=== PATIENT | female | born 1980 | race American Indian/Alaskan Native ===

== ENCOUNTER 2018-03-03 20:38 | Inpatient (IN) | payer MEDICARE, MEDICAID ==
[2018-03-03 21:09] VITALS: BMI 19.8
[2018-03-03 21:46] LABS: BASO # 0.01 K/mm3 (0.0-2.0); BASO % 0.1 % (0.0-3.0); EOS # 0.3 (0.0-0.7); EOS % 4.4 % (1.5-5.0); GRAN # 4.55 (1.4-6.5); GRAN % 61.4 % (50.0-68.0); HEMOGLOBIN 11.6 g/dL (12.0-16.0); LYMPH # 2.1 (1.2-3.4); MEAN CELL VOLUME 89.4 fl (80.0-105.0); MEAN CORPUSCULAR HEMOGLOBIN 30.6 pg (25.0-35.0); MEAN CORPUSCULAR HGB CONC 34.2 g/dl (31.0-37.0); MEAN PLATELET VOLUME 9.3 fl (7.0-11.0); MONO # 0.5 (0.1-0.6); MONO % 6.1 % (1.0-6.0); RBC 3.79 10^6/uL (3.5-6.1); RED CELL DISTRIBUTION WIDTH 13.1 % (11.5-14.5); WHITE BLOOD COUNT 7.4 10^3/ul (4.5-11.0)
[2018-03-03 21:57] LABS: ACETAMINOPHEN < 10.0 ug/ml (10.0-20.0); SALICYLATE < 1 mg/dL (2.0-20.0)
[2018-03-03 21:58] LABS: ALB/GLOB RATIO 1.2 (1.1-1.8); ALBUMIN 3.2 g/dL (3.0-4.8); ALT/SGPT 28 U/L (7-56); AST/SGOT 19 U/L (14-36); BLOOD UREA NITROGEN 9 mg/dL (7-21); CALCIUM 8.1 mg/dL (8.4-10.5); GFR AFRICAN-AMERICAN > 60; GFR NON-AFRICAN AMERICAN > 60
[2018-03-03] MEDS ORDERED: Potassium Chloride 20 mEq ER Tab PO STA (22:02)
--- NOTE | 2018-03-03 22:17 | ED PDOC ---
Arrival/HPI - General Historian: Patient <Miguel Richardson A - Last Filed: 03/04/18 02:03> <Kamari Vasquez - Last Filed: 03/04/18 05:41> - General Chief Complaint: Psychiatric Evaluation Time Seen by Provider: 03/03/18 20:41 - History of Present Illness Narrative History of Present Illness (Text): 03/03/18 22:11 37yo female with past medical history of schizophrenia, bipolar present with complaint of auditory hallucinations, requesting psychiatric medication, generalized bodyache and dizziness. States she have not taken her psych medication for 4months because she was with her sister at [facility]. She admits to cocaine use. States the last time she used cocaine was this morning. She denies nausea, vomiting, chest pain, focal weakness, headache, SI/HI, any other complaint. (Miguel Richardson A) Past Medical History - Provider Review Nursing Documentation Reviewed: Yes - Infectious Disease Hx of Infectious Diseases: None - Cardiac Hx Cardiac Disorders: No - Pulmonary Hx Asthma: Yes - Neurological Hx Neurological Disorder: No - HEENT Hx HEENT Disorder: No - Renal Hx Renal Disorder: No - Endocrine/Metabolic Hx Endocrine Disorders: No - Hematological/Oncological Hx Blood Disorders: No - Integumentary Hx Dermatological Disorder: No - Musculoskeletal/Rheumatological Hx Musculoskeletal Disorders: No - Gastrointestinal Hx Gastrointestinal Disorders: No - Genitourinary/Gynecological Hx Genitourinary Disorders: No - Psychiatric Hx Psychophysiologic Disorder: No Hx Substance Use: Yes - Surgical History Other/Comment: left ankle - Anesthesia Hx Anesthesia: Yes Hx Anesthesia Reactions: No - Suicidal Assessment Feels Threatened In Home Enviroment: No <Miguel Richardson A - Last Filed: 03/04/18 02:03> Family/Social History - Physician Review Nursing Documentation Reviewed: Yes Family/Social History: Unknown Family HX Smoking Status: Heavy Smoker > 10 Cigarettes Daily Hx Alcohol Use: No Hx Substance Use: Yes Substance used: cocaine and weed as per patient <Miguel Richardson A - Last Filed: 03/04/18 02:03> Allergies/Home Meds <Miguel Richardson A - Last Filed: 03/04/18 02:03> <Kamari Vasquez - Last Filed: 03/04/18 05:41> Allergies/Adverse Reactions: Allergies chocolate flavor Allergy (Intermediate, Verified 03/03/18 21:10) RASH HIVES PER PATIENT onion Allergy (Intermediate, Verified 03/03/18 21:10) RASH HIVES onions Allergy (Uncoded 07/07/17 05:03) RASH Review of Systems - Physician Review All systems were reviewed & negative as marked: Yes - Review of Systems Constitutional: Normal Eyes: Normal ENT: Normal Respiratory: Normal Cardiovascular: Normal Gastrointestinal: Normal Genitourinary Female: Normal Musculoskeletal: Myalgias Skin: Normal Neurological: Dizziness. absent: Headache, Focal Weakness, Gait Changes, Speech Changes Endocrine: Normal Hemo/Lymphatic: Normal Psychiatric: Other (Hallucination) <DirhilarioHappiness A - Last Filed: 03/04/18 02:03> Physical Exam Vital Signs Reviewed: Yes Temperature: Afebrile Blood Pressure: Normal Pulse: Regular Respiratory Rate: Normal Appearance: Positive for: Well-Appearing, Non-Toxic, Comfortable Pain Distress: None Mental Status: Positive for: Alert and Oriented X 3 - Systems Exam Head: Present: Atraumatic, Normocephalic Pupils: Present: PERRL Extroacular Muscles: Present: EOMI Conjunctiva: Present: Normal Mouth: Present: Moist Mucous Membranes Neck: Present: Normal Range of Motion Respiratory/Chest: Present: Clear to Auscultation, Good Air Exchange. No: Respiratory Distress, Accessory Muscle Use Cardiovascular: Present: Regular Rate and Rhythm, Normal S1, S2. No: Murmurs Abdomen: No: Tenderness, Distention, Peritoneal Signs Back: Present: Normal Inspection Upper Extremity: Present: Normal Inspection. No: Cyanosis, Edema Lower Extremity: Present: Normal Inspection. No: Edema Neurological: Present: GCS=15, CN II-XII Intact, Speech Normal Skin: Present: Warm, Dry, Normal Color. No: Rashes Psychiatric: Present: Alert, Oriented x 3, Normal Insight, Normal Concentration <DiruHappiness A - Last Filed: 03/04/18 02:03> Vital Signs Temp Pulse Resp BP Pulse Ox 03/04/18 05:38 88 16 113/72 99 03/03/18 21:18 98.5 F 76 18 135/89 99 Medical Decision Making <DylanHappiness A - Last Filed: 03/04/18 02:03> <Kamari Vasquez - Last Filed: 03/04/18 05:41> ED Course and Treatment: 03/04/18 02:04 Pt presented for stated history. She was calm and hemodynamically stable. Lab was ordered and reviewed. Potassium and Calcium was repleted in Emergency department. Patient was medically cleared for psychiatric evaluation. PES screener was called. Case was endorsed to Dr. Vasquez to f/u with PES and dispo pt. (Miguel Richardson) 03/04/18 04:30 Pt seen and evaluated by PES screener Jose, who discussed case with psychiatrist computational scientist. Pt will remain in ER for [id number] evaluation by psychiatrist in the morning. 03/04/18 07:[address] Womack, pending [id number] evaluation with psychiatrist. ( Kamari Vasquez) - Lab Interpretations Lab Results: 03/03/18 21:31 03/03/18 21:31 Lab Results 03/03/18 21:31: Alcohol, Quantitative < 10 03/03/18 21:31: Salicylates < 1 L, Acetaminophen < 10.0 L 03/03/18 21:31: Sodium 143, Potassium 3.0 L, Chloride 108 H, Carbon Dioxide 23, Anion Gap 14, BUN 9, Creatinine 0.7, Est GFR ( Amer) > 60, Est GFR (Non- Af Amer) > 60, Random Glucose 121 H, Calcium 8.1 L, Magnesium 1.8, Total Bilirubin 0.3, AST 19, ALT 28, Alkaline Phosphatase 105, Total Protein 5.8, Albumin 3.2, Globulin 2.6, Albumin/Globulin Ratio 1.2 03/03/18 21:31: WBC 7.4, RBC 3.79, Hgb 11.6 L, Hct 33.9 L, MCV 89.4, MCH 30.6, MCHC 34.2, RDW 13.1, Plt Count 211, MPV 9.3, Gran % 61.4, Lymph % (Auto) 28.0, [place] % (Auto) 6.1 H, Eos % (Auto) 4.4, Baso % (Auto) 0.1, Gran # 4.55, Lymph # ( Auto) 2.1, [place] # (Auto) 0.5, Eos # (Auto) 0.3, Baso # (Auto) 0.01 - RAD Interpretation Radiology Orders: 03/04/18 02:06 CHEST PORTABLE [RAD] Stat - Medication Orders Current Medication Orders: Discontinued Medications Calcium Carbonate (Oscal) 500 mg PO DAILY STA Stop: 03/03/18 22:03 Potassium Chloride (K-Dur 20 Meq Er Tab) 40 meq PO STAT STA Stop: 03/03/18 22:03 Last Admin: 03/03/18 22:26 Dose: 40 meq - PA / LINKER UP / Resident Statement / has reviewed & agrees with the documentation as recorded. / has examined the patient and agrees with the treatment plan. <Kamari Vasquez - Last Filed: 03/04/18 05:41> Disposition/Present on Arrival - Present on Arrival History of DVT/PE: No History of Uncontrolled Diabetes: No Urinary Catheter: No History of Decub. Ulcer: No History Surgical Site Infection Following: None <Miguel Richardson - Last Filed: 03/04/18 02:03> - Present on Arrival Any Indicators Present on Arrival: No - Disposition Have Diagnosis and Disposition been Completed?: No Disposition Time: 07:00 <Kamari Vasquez - Last Filed: 03/04/18 05:41> - Disposition Diagnosis: Schizophrenia Condition: STABLE Forms: [employer] (Arabic)
[2018-03-04 08:09] LABS: URINE BILIRUBIN NEGATIVE (NEGATIVE); URINE BLOOD TRACE-INTACT (NEGATIVE); URINE GLUCOSE (UA) NEGATIVE (NEGATIVE); URINE LEUKOCYTE ESTERASE NEGATIVE Leu/uL (NEGATIVE); URINE PROTEIN NEGATIVE mg/dL (<30 mg/dL); URINE UROBILINOGEN 0.2 E.U./dL (<1 E.U./dL)
[2018-03-04 08:19] LABS: URINE APPEARANCE CLEAR (CLEAR); URINE COLOR YELLOW (YELLOW)
[2018-03-04 08:25] LABS: URINE BACTERIA FEW (NEG); URINE RBC 0 - 2 /hpf (0-2)
[2018-03-04 08:44] LABS: BARBITURATES, UR NEGATIVE (NEGATIVE); BENZODIAZEPINES, UR NEGATIVE (NEGATIVE); OPIATES, UR NEGATIVE (NEGATIVE); PHENCYCLIDINE, UR NEGATIVE (NEGATIVE)
[2018-03-04] MEDS ORDERED: Magnesium Hydroxide Susp 30 ml UD PO PRN (10:56)
[2018-03-04] MEDS ORDERED: Alum-Mag Hydrox-Simethicone Susp (30 mL) PO PRN (10:57)
--- NOTE | 2018-03-04 11:01 | RAD ---
Date of service: 03/04/2018 HISTORY: Dizziness COMPARISON: No prior. FINDINGS: LUNGS: No active pulmonary disease. PLEURA: No significant pleural effusion identified, no pneumothorax apparent. CARDIOVASCULAR: Normal. OSSEOUS STRUCTURES: No significant abnormalities. VISUALIZED UPPER ABDOMEN: Normal. OTHER FINDINGS: None. IMPRESSION: No active disease.
--- NOTE | 2018-03-04 11:42 | ED PDOC ---
Physical Exam Vital Signs Temp Pulse Resp BP Pulse Ox 03/04/18 09:00 98 F 85 119/53 L 99 03/04/18 08:43 98 F 75 19 119/72 98 03/04/18 05:38 88 16 113/72 99 03/04/18 02:07 98.6 F 77 18 120/86 100 03/03/18 23:00 80 18 120/72 99 03/03/18 21:18 98.5 F 76 18 135/89 99 Medical Decision Making ED Course and Treatment: Signed out to me at change of shift pending psychiatrist evaluation this AM. Patient seen by Dr. Lu, accepted for admission to Psych. - Lab Interpretations Lab Results: 03/03/18 21:31 03/03/18 21:31 Lab Results 03/04/18 08:00: Urine Opiates Screen Negative, Urine Methadone Screen Negative, Ur Barbiturates Screen Negative, Ur Phencyclidine Scrn Negative, Ur Amphetamines Screen Negative, U Benzodiazepines Scrn Negative, U Oth Cocaine Metabols Positive H, U Cannabinoids Screen Negative 03/04/18 08:00: Urine Color Yellow, Urine Appearance Clear, Urine pH 6.0, Ur Specific [place] 1.020, Urine Protein Negative, Urine Glucose (UA) Negative, Urine Ketones Negative, Urine Blood Trace-intact H, Urine Nitrate Negative, Urine Bilirubin Negative, Urine Urobilinogen 0.2, Ur Leukocyte Esterase Negative , Urine RBC 0 - 2, Urine WBC 1 - 3, Ur Epithelial Cells 1 - 3, Urine Bacteria Few 03/03/18 21:31: Alcohol, Quantitative < 10 03/03/18 21:31: Salicylates < 1 L, Acetaminophen < 10.0 L 03/03/18 21:31: Sodium 143, Potassium 3.0 L, Chloride 108 H, Carbon Dioxide 23, Anion Gap 14, BUN 9, Creatinine 0.7, Est GFR ( Amer) > 60, Est GFR (Non- Af Amer) > 60, Random Glucose 121 H, Calcium 8.1 L, Magnesium 1.8, Total Bilirubin 0.3, AST 19, ALT 28, Alkaline Phosphatase 105, Total Protein 5.8, Albumin 3.2, Globulin 2.6, Albumin/Globulin Ratio 1.2 03/03/18 21:31: WBC 7.4, RBC 3.79, Hgb 11.6 L, Hct 33.9 L, MCV 89.4, MCH 30.6, MCHC 34.2, RDW 13.1, Plt Count 211, MPV 9.3, Gran % 61.4, Lymph % (Auto) 28.0, [place] % (Auto) 6.1 H, Eos % (Auto) 4.4, Baso % (Auto) 0.1, Gran # 4.55, Lymph # ( Auto) 2.1, Lamb # (Auto) 0.5, Eos # (Auto) 0.3, Baso # (Auto) 0.01 - RAD Interpretation Radiology Orders: 03/04/18 02:06 CHEST PORTABLE [RAD] Stat - Medication Orders Current Medication Orders: Acetaminophen (Tylenol 325mg Tab) 650 mg PO Q4H PRN PRN Reason: Pain, moderate (4-7) Last Admin: 03/04/18 11:23 Dose: 650 mg MAR Pain/Vitals Document 03/04/18 11:23 LEV (Rec: 03/04/18 11:24 LEV [id number]) Pain Reassessment Is This A Pain ReAssessment? No Sleep Is patient sleeping during reassessment? No Presence of Pain Presence of Pain Yes Pain Scale Used Pain Scale Used Numeric Location Pain Location Body Site Generalized Intensity 7 Al Hydrox/Mg Hydrox/Simethicone (Maalox Plus 30 Ml) 30 ml PO DAILY PRN PRN Reason: Indigestion / Heartburn Escitalopram Oxalate (Lexapro) 5 mg PO DAILY ANTOINE Lorazepam (Ativan) 1 mg PO AMHS ANTOINE PRN Reason: Protocol Last Admin: 03/04/18 11:23 Dose: 1 mg Behavioural Document 03/04/18 11:23 LEV (Rec: 03/04/18 11:23 LEV [id number]) Maintenance Maintenance Dose No Nonmedicinal Nonmedicinal Interventions See nurse's notes Behavior Behavior for Medication: Continuous pacing/restlessness Magnesium Hydroxide (Milk Of Magnesia) 30 ml PO DAILY PRN PRN Reason: Constipation Risperidone (Risperdal Tab) 1 mg PO AMHS ANTOINE PRN Reason: Protocol Zaleplon (Sonata) 5 mg PO HS PRN PRN Reason: Insomnia Discontinued Medications Calcium Carbonate (Oscal) 500 mg PO DAILY STA Stop: 03/03/18 22:03 Last Admin: 03/03/18 22:35 Dose: Not Given Non-Admin Reason: Patient Refused Potassium Chloride (K-Dur 20 Meq Er Tab) 40 meq PO STAT STA Stop: 03/03/18 22:03 Last Admin: 03/03/18 22:26 Dose: 40 meq Disposition/Present on Arrival - Present on Arrival Any Indicators Present on Arrival: No History of DVT/PE: No History of Uncontrolled Diabetes: No Urinary Catheter: No History of Decub. Ulcer: No History Surgical Site Infection Following: None - Disposition Have Diagnosis and Disposition been Completed?: Yes Diagnosis: Schizophrenia Disposition: HOSPITALIZED Disposition Time: 08:40 Patient Plan: Admission Patient Problems: Current Active Problems Problem Status Onset Schizophrenia Acute Condition: STABLE
--- NOTE | 2018-03-04 12:50 | CARD ---
APPROVED REPORT Date of service: 03/04/2018 EKG Measurement Heart [id number] <Conclusion> Sinus rhythm with 1st degree AV block Otherwise normal ECG
--- NOTE | 2018-03-04 13:24 | PCM.BM ---
<Miranda Crabtree - Last Filed: 03/04/18 13:27> Treatment Plan Problems - Problems identified on initial assessmt Medication NonAdherence Date Initiated: 03/04/18 Time Initiated: 13:21 Assessment reference: NA Status: Active Priority: 1 Command/Auditory Hallucinations Date Initiated: 03/04/18 Time Initiated: 13:22 Assessment reference: NA Status: Active Priority: 2 Altered Thought Process Date Initiated: 03/04/18 Time Initiated: 13:23 Assessment reference: NA Status: Active Priority: 3 Ineffective Coping Date Initiated: 03/04/18 Time Initiated: 13:23 Assessment reference: NA Status: Active Priority: 4 SelfCare Deficit Date Initiated: 03/04/18 Time Initiated: 13:23 Assessment reference: NA Status: Active Priority: 5 Treatment assets and liabiliti Patient Assests: cooperative, negotiates basic needs Patient Liabilities: financial problems, poor support system, substance abuse - Milieu Protocol Maintain good personal hygiene: daily Encourage regular showers, every shift Remind patient to perform daily oral care, every shift Assist patient to perform ADL's Maintain personal safety: every shift Educate patient to report safety concerns to staff, every shift Monitor environment for contraband/sharps Medication safety: Monitor for expected outcome, potential side effects: every shift, Assess barriers to learning: every shift, Assess readiness for medication education: every shift Family Contact Family involvement: No known Family/SO Family contact: Other (Patient reports no family contact) - Goals for Treatment Patient goals for treatment: "Not hear voices" Discharge/Continuing Care - Education Needs Education Needs: Patient Medication, Patient Diagnosis/Disease Process, Patient Coping Skills, Patient Activities of Daily Living, Patient Personal Hygiene/ Grooming, Patient Aftercare Safety Plan - Discharge Discharge Criteria: Tolerates medication w/o severe side effects, Free of Homicidal thoughts, Ability to care for self <Ivy Millan - Last Filed: 03/05/18 13:37> - Diagnosis (1) Cocaine abuse Status: Acute Interventions: 03/05/18 13:37 Monitoring withdrawal symptoms Medical detoxification Pharmacotherapy for alcohol/benzos/opioid dependence Maintaining sobriety Relapse prevention Possible rehabilitation Motivational interviewing 12-step programs: AA meetings (2) Schizophrenia Status: Acute Interventions: 03/05/18 13:38 Psychoeducation/psychotherapy Psychopharmacology/adjustment of medications as needed/ monitoring possible side effects Evaluate pt on daily basis Compliance with medications and follow up appointments Long acting medication if pt is noncompliant with pill form Suicide and homicide risk assessment and prevention, coping strategies, safety plan Relapse prevention Reduction of symptoms Improve functional status Possible assertive community treatment Cognitive behavioral therapy Family involvement Possible social skill training as outpatient <Duyen Barnett - Last Filed: 03/05/18 14:18> Family Contact Family involvement: Famliy/SO not involved Family contact: Patient agrees to contact <Jessica Loredo - Last Filed: 03/07/18 12:07>
[2018-03-04 16:20] VITALS: O2SAT 100
[2018-03-05 07:54] LABS: GLUCOSE,FASTING 83 mg/dL (65-110); HDL CHOLESTEROL 44 mg/dL (29-60)
[2018-03-05 08:06] LABS: LDL CHOLESTEROL 60 mg/dL (0-129)
[2018-03-05 08:09] LABS: FREE T4 0.6 ng/dL (0.78-2.19)
--- NOTE | 2018-03-05 13:37 | PCM.PSYCH ---
Initial Psychiatric Evaluation - Initial Psychiatric Evaluation Type of Admission: Voluntary Legal Status: Capacity (ppatient has capacity to sign consent for treatment) Chief Complaint (in patient's own words): "I don't feel good, I am tired" Patient's Reaction to Hospitalization: pt was admitted for psychosis, disorganized thoughts and behavior. History of Present Illness and Precipitating Events: shortly pt is 37yo with reported h/o schizophrenia, h/o cocaine abuse, pt was brought in to the [facility] for evaluation of psychosis, and generalized body ache and dizziness, pt reported being noncompliant with meds and f/u appointments,pt required further evaluation and stabilization and observation. pt was seen today at the morning time at the treatment team meeting room, pt presented with poor personal hygiene, strong body odor, fair ADLs pt had poor dental hygiene, pt seems to be poor and unreliable historian, was keep repeating that she is tired and she is feeling dizzy. pt reported that she was released from [facility] with no meds, pt said that she staid on the psych unit for observation and no prescriptions were given to her. as pe ED report pt said she was not taking her psych meds for 4 months because of her relocation to her sister's house. pt presented to be disorganized, said that she was feeling "dizzy" before coming to the hospital, had difficulties to describe what does she mean by dizziness. Pt was keep trying to lay on the desk while talking, needs to be redirected. In ED pt had impression that something was hurt inside of her and she felt that her umbilical cord was cut off. pt was also mumbling something incoherently about "I feel like I'm walking in ...I feel like i'm going to soon." "someone is doing latter-day on me, I don't know who is trying to do latter-day" in ED pt said she was hearing voices telling her to kill someone, but denied any intent or plan to kill self or others. pt reported that she smokes cocaine "every other day". pt smokes about a pack a day of cigarettes, counseling provided, nicotine patch offered. past psych h/o: unknown, pt reported h/o schizophrenia, pt denied h/o suicidal attempts but ?. pt said she was on risperdal before and wants to continue on it. Family h/o: unknown Social h/o: unknown. Medical h/o: Asthma, pt said that she broke her ankle last winter, was observed limping while walking, pt seems to be malnourished. 03/03/18 21:31 03/03/18 21:31 Lab Results 03/05/18 07:15: Free T4 0.60 L, TSH 3rd Generation 1.78 03/05/18 07:15: Fasting Glucose 83, Triglycerides 47, Cholesterol 110 L, LDL Cholesterol Direct 60, HDL Cholesterol 44 03/04/18 08:00: Urine Opiates Screen Negative, Urine Methadone Screen Negative, Ur Barbiturates Screen Negative, Ur Phencyclidine Scrn Negative, Ur Amphetamines Screen Negative, U Benzodiazepines Scrn Negative, U Oth Cocaine Metabols Positive H, U Cannabinoids Screen Negative 03/04/18 08:00: Urine Color Yellow, Urine Appearance Clear, Urine pH 6.0, Ur Specific [place] 1.020, Urine Protein Negative, Urine Glucose (UA) Negative, Urine Ketones Negative, Urine Blood Trace-intact H, Urine Nitrate Negative, Urine Bilirubin Negative, Urine Urobilinogen 0.2, Ur Leukocyte Esterase Negative , Urine RBC 0 - 2, Urine WBC 1 - 3, Ur Epithelial Cells 1 - 3, Urine Bacteria Few 03/03/18 21:31: Alcohol, Quantitative < 10 03/03/18 21:31: Salicylates < 1 L, Acetaminophen < 10.0 L 03/03/18 21:31: Sodium 143, Potassium 3.0 L, Chloride 108 H, Carbon Dioxide 23, Anion Gap 14, BUN 9, Creatinine 0.7, Est GFR ( Amer) > 60, Est GFR (Non- Af Amer) > 60, Random Glucose 121 H, Calcium 8.1 L, Magnesium 1.8, Total Bilirubin 0.3, AST 19, ALT 28, Alkaline Phosphatase 105, Total Protein 5.8, Albumin 3.2, Globulin 2.6, Albumin/Globulin Ratio 1.2 03/03/18 21:31: WBC 7.4, RBC 3.79, Hgb 11.6 L, Hct 33.9 L, MCV 89.4, MCH 30.6, MCHC 34.2, RDW 13.1, Plt Count 211, MPV 9.3, Gran % 61.4, Lymph % (Auto) 28.0, [place] % (Auto) 6.1 H, Eos % (Auto) 4.4, Baso % (Auto) 0.1, Gran # 4.55, Lymph # ( Auto) 2.1, [place] # (Auto) 0.5, Eos # (Auto) 0.3, Baso # (Auto) 0.01 Vital Signs Temp Pulse Resp BP Pulse Ox 03/05/18 06:50 98.8 F 73 16 97/64 L 03/04/18 18:12 82 119/63 03/04/18 16:18 72 92/55 L 03/04/18 13:29 20 03/04/18 10:15 80 20 110/65 100 03/04/18 09:00 98 F 85 119/53 L 99 03/04/18 08:43 98 F 75 19 119/72 98 03/04/18 05:38 88 16 113/72 99 03/04/18 02:07 98.6 F 77 18 120/86 100 03/03/18 23:00 80 18 120/72 99 03/03/18 21:18 98.5 F 76 18 135/89 99 right after the treatment team meeting pt submitted 48hr notice, requesting d/c "because I need to be somewhere by Monday" Current Medications: Active Medications Generic Name Dose Route Start Last Admin Trade Name Freq PRN Reason Stop Dose Admin Acetaminophen 650 mg 03/04/18 10:56 03/04/18 21:59 Tylenol 325mg Tab PO 650 mg Q4H PRN Administration Pain, moderate (4-7) Al Hydrox/Mg Hydrox/Simethicone 30 ml 03/04/18 10:57 Maalox Plus 30 Ml PO DAILY PRN Indigestion / Heartburn Escitalopram Oxalate 5 mg 03/05/18 08:00 03/05/18 08:18 Lexapro PO 5 mg DAILY ANTOINE Administration Lorazepam 1 mg 03/04/18 10:55 03/05/18 09:28 Ativan PO 1 mg AMHS ANTOINE Administration Protocol Magnesium Hydroxide 30 ml 03/04/18 10:56 Milk Of Magnesia PO DAILY PRN Constipation Nicotine 1 patch 03/05/18 10:30 03/05/18 11:37 Nicoderm Cq TD 1 patch DAILY ANTOINE Administration Risperidone 1 mg 03/04/18 22:00 03/05/18 09:29 Risperdal Tab PO 1 mg AMHS ANTOINE Administration Protocol Zaleplon 5 mg 03/04/18 10:55 Sonata PO HS PRN Insomnia Past Psychiatric History - Past Psychiatric History Previous Treatment History: Inpatient Prior Professional Help: see HPI Prior Psychiatric Treatment: see HPI At what hospital: see HPI Duration: see HPI Nature of Treatment: see HPI Explanation of prior treatment: see HPI History of Abuse: denied History of ETOH/Drug Use: see HPI History of Family Illness: see HPI Pertinent Medical Hx (Current Medical&Sleep Prob, Allergies): Allergies Allergy/AdvReac Type Severity Reaction Status Date / Time chocolate flavor Allergy Intermediate RASH Verified 03/05/18 03:15 onion Allergy Intermediate RASH Verified 03/05/18 03:15 onions Allergy RASH Uncoded 03/05/18 03:15 RisperDAL Consta 75 in IJ ONCE 03/05/18 Review of Systems - Review of Systems Systems not reviewed;Unavailable: Acuity of Condition - EENT Eyes: As Per HPI Ears: As Per HPI Nose/Mouth/Throat: As Per HPI - Breasts Breasts: As Per HPI - Cardiovascular Cardiovascular: As Per HPI - Respiratory Respiratory: As Per HPI - Gastrointestinal Gastrointestinal: As Per HPI - Genitourinary Genitourinary: As Per HPI - Reproductive: Female Reproductive:Female: As Per HPI - Menstruation Menstruation: As Per HPI - Musculoskeletal Musculoskeletal: As Par HPI - Integumentary Integumentary: As Per HPI - Neurological Neurological: As Per HPI - Psychiatric Psychiatric: As Per HPI - Endocrine Endocrine: As Per HPI - Hematologic/Lymphatic Hematologic: As Per HPI Mental Status Examination - Personal Presentation Personal Presentation: Looks stated age - Affect Affect: Flat - Motor Activity Motor Activity: Psychomotor Retardation - Reliability in Providing Information Reliability in Providing Information: Poor, due to alteration in thoughts, Poor , due to altered mood, Poor, due to cognitve impairment - Speech Speech: Disorganized - Mood Mood: Depressed - Formal Thought Process Formal Thought Process: Hallucinations, Delusions, Circumstantial - Hallucinations/Delusions Hallucinations: Auditory - Obsessions/Compulsions Obsessions: None Compulsions: None - Cognitive Functions Orientation: Person, Place Sensorium: Alert, Drowsy Attention/Concentration: Easily distracted Estimate of Intelligence: Below average Judgement: Intact, as evidence by: Insight regarding need for hospitalization - Risk Risk: Diminished functioning - Strength & Assets Inventory Strength & Assets Inventory: Cooperative - Limitations Limitations: Other (noncompliance, substance abuse) DSM 5 DX - DSM 5 DSM 5 Diagnosis: as per h/o schizophrenia cocaine abuse r/o substance induced psychosis - Recommended/Plan of Treatment Treatment Recommendations and Plan of Treatment: Milieu/structure/supportive therapy Medical consult for asthma and limping, h/o left ankle injury SW consultation for discharge plan and social issues Med management risperdal, lexapro, sonata and PRN meds Family involvement Follow up on labs Will monitor closely Pt was educated about risk/benefits and alternatives of medications, coping strategies (safety plan, suicide prevention), relapse prevention, importance of follow up with psychiatrist and therapist, stay away from drugs/alcohol/smoking will consider to call for [facility] screening, pt submitted 48hr notice 03/05/18 nutritional consult. Projected ELOS: 7days Prognosis: fair Discharge Plan and Discharge Criteria: Pt will be not depressed or manic, will be more hopeful, will be not psychotic or anxious, will be not having thoughts of harming self or others, will be tolerating medications well, will not have major side effects, will be able to function, will not pose threat to self or others. - Smoking Cessation Smoking Cessation Initiated: Yes
[2018-03-06] MEDS ORDERED: Potassium Chloride 20 mEq ER Tab PO ONE (09:38)
--- NOTE | 2018-03-06 16:04 | PCM.PYCHPN ---
Psychiatric Progress Note - Psychiatric Progress Note Patient seen today, length of contact: 30min Patient Chief Complaint: "I am not depressed, please discontinue Lexapro" Problems Identified/Issues Discussed: Suicide/ homicide prevention, past psychiatric h/o, current psychiatric symptoms , medical problems, risk/benefits and alternatives of medications, medications compliance, coping strategies, substance abuse h/o, relapse prevention, importance of follow up with psychiatrist and therapist, discharge plan. Medical Problems: see HPI Diagnostic Results: 03/03/18 21:31 03/03/18 21:31 Lab Results 03/05/18 07:15: RPR Nonreactive 03/05/18 07:15: Free T4 0.60 L, TSH 3rd Generation 1.78 03/05/18 07:15: Fasting Glucose 83, Triglycerides 47, Cholesterol 110 L, LDL Cholesterol Direct 60, HDL Cholesterol 44 03/04/18 08:00: Urine Opiates Screen Negative, Urine Methadone Screen Negative, Ur Barbiturates Screen Negative, Ur Phencyclidine Scrn Negative, Ur Amphetamines Screen Negative, U Benzodiazepines Scrn Negative, U Oth Cocaine Metabols Positive H, U Cannabinoids Screen Negative 03/04/18 08:00: Urine Color Yellow, Urine Appearance Clear, Urine pH 6.0, Ur Specific [place] 1.020, Urine Protein Negative, Urine Glucose (UA) Negative, Urine Ketones Negative, Urine Blood Trace-intact H, Urine Nitrate Negative, Urine Bilirubin Negative, Urine Urobilinogen 0.2, Ur Leukocyte Esterase Negative , Urine RBC 0 - 2, Urine WBC 1 - 3, Ur Epithelial Cells 1 - 3, Urine Bacteria Few 03/03/18 21:31: Alcohol, Quantitative < 10 03/03/18 21:31: Salicylates < 1 L, Acetaminophen < 10.0 L 03/03/18 21:31: Sodium 143, Potassium 3.0 L, Chloride 108 H, Carbon Dioxide 23, Anion Gap 14, BUN 9, Creatinine 0.7, Est GFR ( Amer) > 60, Est GFR (Non- Af Amer) > 60, Random Glucose 121 H, Calcium 8.1 L, Magnesium 1.8, Total Bilirubin 0.3, AST 19, ALT 28, Alkaline Phosphatase 105, Total Protein 5.8, Albumin 3.2, Globulin 2.6, Albumin/Globulin Ratio 1.2 03/03/18 21:31: WBC 7.4, RBC 3.79, Hgb 11.6 L, Hct 33.9 L, MCV 89.4, MCH 30.6, MCHC 34.2, RDW 13.1, Plt Count 211, MPV 9.3, Gran % 61.4, Lymph % (Auto) 28.0, [place] % (Auto) 6.1 H, Eos % (Auto) 4.4, Baso % (Auto) 0.1, Gran # 4.55, Lymph # ( Auto) 2.1, [place] # (Auto) 0.5, Eos # (Auto) 0.3, Baso # (Auto) 0.01 Vital Signs Temp Pulse Resp BP Pulse Ox 03/06/18 06:47 97.3 F L 73 17 101/64 03/05/18 16:00 83 96/60 L 03/05/18 06:50 98.8 F 73 16 97/64 L 03/04/18 18:12 82 119/63 03/04/18 16:18 72 92/55 L 03/04/18 13:29 20 03/04/18 10:15 80 20 110/65 100 03/04/18 09:00 98 F 85 119/53 L 99 03/04/18 08:43 98 F 75 19 119/72 98 03/04/18 05:38 88 16 113/72 99 03/04/18 02:07 98.6 F 77 18 120/86 100 03/03/18 23:00 80 18 120/72 99 03/03/18 21:18 98.5 F 76 18 135/89 99 DSM 5 Symptoms Update: shortly pt is 37yo with reported h/o schizophrenia, h/o cocaine abuse, pt was brought in to the [facility] for evaluation of psychosis, and generalized body ache and dizziness, pt reported being noncompliant with meds and f/u appointments,pt required further evaluation and stabilization and observation. pt was seen today at the morning time at the treatment team meeting room, pt presented with poor personal hygiene, but took a shower. pt presented bizarre, but not agitated pt said that she was f/u by PACT team and she was on Injectable form of risperdal PACT team was contacted, meeting arranged for tomorrow. pt tolerated meds well, refused to take lexapro "I am not depressed" Impression: DSM 5 Diagnosis: as per h/o schizophrenia cocaine abuse r/o substance induced psychosis Medication Change: Yes (lexapro d/c) Medical Record Reviewed: Yes Consults ordered or reviewed: medical consult was called Mental Status Examination - Cognitive Function Orientation: Person, Place Memory: Intact Attention: Poor Concentration: Poor Association: Loose Fund of Knowledge: Poor - Mood Mood: Depressed - Affect Affect: Flat - Formal Thought Process Formal Thought Process: Hallucinations, Delusions, Circumstantial - Suicidal Ideation Suicidal Ideation: No - Homicidal Ideation Homicidal Ideation: No Goal/Treatment Plan - Goal/Treatment Plan Need for Continued Stay: Remain at risks for inpatient hospitalization, Severe depression anxiety, Discharge may exacerbated symptoms, Severe functional impairment Progress Toward Problem(s) and Goals/Treatment Plan: Milieu/structure/supportive therapy Medical consult for asthma and limping, h/o left ankle injury SW consultation for discharge plan and social issues Med management risperdal, lexapro d/c sonata and PRN meds Family involvement Follow up on labs Will monitor closely Pt was educated about risk/benefits and alternatives of medications, coping strategies (safety plan, suicide prevention), relapse prevention, importance of follow up with psychiatrist and therapist, stay away from drugs/alcohol/smoking will consider to call for [facility] screening, pt submitted 48hr notice 03/05/18 nutritional consult. d/w with [facility] PACT team they are coming tomorrow for meeting
--- NOTE | 2018-03-06 21:02 | CON ---
Copied To: Freeman Nash DO Attending MD: Freeman Nash DO DATE: 03/06/2018 HISTORY OF PRESENT ILLNESS: I saw her in the psychiatric floor. She is a nice young 37-year-old -[place] female who presents with auditory hallucinations, generalized body ache, and dizziness. She also is not taking her psych medications for 4 months, who is living with sister in [facility]. She also admits using cocaine. She used cocaine in the morning of coming to the hospital. PAST MEDICAL HISTORY: Schizophrenia, bipolar, asthma, without any breathing issues even while she is doing cocaine at this time. She has substance abuse, she has left ankle surgery in the past. SOCIAL HISTORY: She still smokes cigarettes; still does drugs, cocaine; occasional alcohol. ALLERGIES: SHE HAS ALLERGIES TO CHOCOLATE AND ONIONS. REVIEW OF SYSTEMS: No acute vision or hearing changes. No sore throat. No shortness of breath or cough. No wheezing. No chest pain or palpitations. No nausea, vomiting, constipation, or diarrhea. No problems urinating. She does have myalgias. Skin is intact as far as she knows. She was dizzy. No headache or focal weakness. She was having hallucinations. PHYSICAL EXAMINATION: VITAL SIGNS: She has a 98.5 temperature, 76 pulse, 18 respiratory rate, 135/89 blood pressure, and 99% O2 sat on room air. GENERAL: Alert and oriented x3. Well-appearing, nontoxic, comfortable in bed. She slept fairly well last night. HEENT: Head is atraumatic and normocephalic. Extraocular muscles are intact. Pupils are equal and reactive to light and accommodation. Throat is moist. NECK: Supple. HEART: Regular rate. Normal S1, S2. LUNGS: Clear to auscultation bilaterally. Poor inspiration, smoking, but no wheezes or rhonchi. No rales. ABDOMEN: Soft, nontender. Positive bowel sounds. EXTREMITIES: No edema. She can move all 4 extremities well. NEUROLOGICAL: GCS is 15. Cranial nerves II through XII grossly intact. Speech is normal. She can stick out her tongue midline. She can close her eyes tight. She can raise her arms overhead. She can follow my finger in H pattern. Alert and oriented x3. SKIN: Warm and dry. No apparent rashes or ulcers. LYMPHS: Thyroid midline. No palpable appreciable lymphadenopathy. LABORATORY DATA: She has a 7.4 white count, 11.6 hemoglobin, 33.9 hematocrit, with 211 platelets. Alcohol level is less than 10. She has a 143 sodium; potassium is low at 3, will have to replace potassium and needs to check it that was not done yet; chloride 108; carbon dioxide is 23; anion gap is 14. BUN 9, creatinine 0.7. GFR is greater than 60. Sugar is 121. We will check the hemoglobin A1c also. Total protein 5.8. She has sinus rhythm with first degree AV block on EKG. Chest x-ray shows no active disease. TSH is 1.78, normal. Cholesterol is 110, triglycerides 47. Urine is clean. Positive cocaine on toxicology. Opioids nonreactive. We will replace the potassium, check her labs tomorrow. She is on NicoDerm patch, Ativan, Lexapro, MiraLax, [id number], Risperdal, Sonata, and Tylenol. The patient has schizophrenia, smoker, auditory hallucinations, cocaine abuse, asthma history, and low potassium. Freeman Nash DO MTDD
[2018-03-07 07:05] VITALS: RESP 18; TEMP 98
[2018-03-07 07:53] LABS: MEAN CELL VOLUME 89.6 fl (80.0-105.0); MEAN CORPUSCULAR HGB CONC 34.6 g/dl (31.0-37.0); MEAN PLATELET VOLUME 9.4 fl (7.0-11.0); RBC 4.9 10^6/uL (3.5-6.1); WHITE BLOOD COUNT 5.4 10^3/ul (4.5-11.0)
[2018-03-07 07:56] LABS: HEMOGLOBIN 15.2 g/dL (12.0-16.0)
[2018-03-07 08:02] LABS: ALB/GLOB RATIO 1.4 (1.1-1.8); ALBUMIN 4.2 g/dL (3.0-4.8); ALT/SGPT 15 U/L (7-56); AST/SGOT 17 U/L (14-36); BLOOD UREA NITROGEN 13 mg/dL (7-21); CALCIUM 9.4 mg/dL (8.4-10.5); GFR AFRICAN-AMERICAN > 60; GFR NON-AFRICAN AMERICAN > 60
--- NOTE | 2018-03-07 09:57 | PCM.PYCHPN ---
Psychiatric Progress Note - Psychiatric Progress Note Patient seen today, length of contact: 30min Patient Chief Complaint: "I am fine, I want to go" Problems Identified/Issues Discussed: Suicide/ homicide prevention, past psychiatric h/o, current psychiatric symptoms , medical problems, risk/benefits and alternatives of medications, medications compliance, coping strategies, substance abuse h/o, relapse prevention, importance of follow up with psychiatrist and therapist, discharge plan. Medical Problems: underweight, low blood pressure Diagnostic Results: 03/03/18 21:31 03/03/18 21:31 Lab Results 03/05/18 07:15: RPR Nonreactive 03/05/18 07:15: Free T4 0.60 L, TSH 3rd Generation 1.78 03/05/18 07:15: Fasting Glucose 83, Triglycerides 47, Cholesterol 110 L, LDL Cholesterol Direct 60, HDL Cholesterol 44 03/04/18 08:00: Urine Opiates Screen Negative, Urine Methadone Screen Negative, Ur Barbiturates Screen Negative, Ur Phencyclidine Scrn Negative, Ur Amphetamines Screen Negative, U Benzodiazepines Scrn Negative, U Oth Cocaine Metabols Positive H, U Cannabinoids Screen Negative 03/04/18 08:00: Urine Color Yellow, Urine Appearance Clear, Urine pH 6.0, Ur Specific [place] 1.020, Urine Protein Negative, Urine Glucose (UA) Negative, Urine Ketones Negative, Urine Blood Trace-intact H, Urine Nitrate Negative, Urine Bilirubin Negative, Urine Urobilinogen 0.2, Ur Leukocyte Esterase Negative , Urine RBC 0 - 2, Urine WBC 1 - 3, Ur Epithelial Cells 1 - 3, Urine Bacteria Few 03/03/18 21:31: Alcohol, Quantitative < 10 03/03/18 21:31: Salicylates < 1 L, Acetaminophen < 10.0 L 03/03/18 21:31: Sodium 143, Potassium 3.0 L, Chloride 108 H, Carbon Dioxide 23, Anion Gap 14, BUN 9, Creatinine 0.7, Est GFR ( Amer) > 60, Est GFR (Non- Af Amer) > 60, Random Glucose 121 H, Calcium 8.1 L, Magnesium 1.8, Total Bilirubin 0.3, AST 19, ALT 28, Alkaline Phosphatase 105, Total Protein 5.8, Albumin 3.2, Globulin 2.6, Albumin/Globulin Ratio 1.2 03/03/18 21:31: WBC 7.4, RBC 3.79, Hgb 11.6 L, Hct 33.9 L, MCV 89.4, MCH 30.6, MCHC 34.2, RDW 13.1, Plt Count 211, MPV 9.3, Gran % 61.4, Lymph % (Auto) 28.0, [place] % (Auto) 6.1 H, Eos % (Auto) 4.4, Baso % (Auto) 0.1, Gran # 4.55, Lymph # ( Auto) 2.1, [place] # (Auto) 0.5, Eos # (Auto) 0.3, Baso # (Auto) 0.01 Vital Signs Temp Pulse Resp BP Pulse Ox 03/06/18 06:47 97.3 F L 73 17 101/64 03/05/18 16:00 83 96/60 L 03/05/18 06:50 98.8 F 73 16 97/64 L 03/04/18 18:12 82 119/63 03/04/18 16:18 72 92/55 L 03/04/18 13:29 20 03/04/18 10:15 80 20 110/65 100 03/04/18 09:00 98 F 85 119/53 L 99 03/04/18 08:43 98 F 75 19 119/72 98 03/04/18 05:38 88 16 113/72 99 03/04/18 02:07 98.6 F 77 18 120/86 100 03/03/18 23:00 80 18 120/72 99 03/03/18 21:18 98.5 F 76 18 135/89 99 DSM 5 Symptoms Update: shortly pt is 37yo with reported h/o schizophrenia, h/o cocaine abuse, pt was brought in to the [facility] for evaluation of psychosis, and generalized body ache and dizziness, pt reported being noncompliant with meds and f/u appointments,pt required further evaluation and stabilization and observation. pt was seen today at the morning time at the treatment team meeting room, pt presented with poor personal hygiene, but took a shower. meeting with PACT team Hayley TEJEDA took place today, as per collaterals from PACT pt was noncompliant with meds and follow up appts, pt was filed as missing person for twice, for the past three months pt was not compliant with Haldol Decanoate, pt lost her apartment about a year ago because of extreme paranoia and impression that people had an affair with her imaginary boyfriend, pt was not functioning in the community, was acting bizarre and disorganized. h/o state hospitalizations, most recent was in [facility] about a year ago, pt spent there for 1,5 years, PACT team advocating for [facility] screening. pt presented bizarre, and annoyed with the meeting, pt said "I don't know Hayley , I do not feel comfortable, I do not want to talk to you", pt was keep asking about discharge, pt said that she needs to have check today, thought process is mildly disorganized. pt tolerated meds well, compliance is good, no side effects observed or reported. pt at times could be intrusive, but no agitation/no aggression. Impression: DSM 5 Diagnosis: as per h/o schizophrenia cocaine abuse r/o substance induced psychosis Medication Change: Yes (risperdal increased) Medical Record Reviewed: Yes Consults ordered or reviewed: medical consult appreciated Mental Status Examination - Cognitive Function Orientation: Person, Place Memory: Intact Attention: Poor Concentration: Poor Association: Loose Fund of Knowledge: Poor - Mood Mood: Depressed - Affect Affect: Flat - Speech Speech: Appropriate - Formal Thought Process Formal Thought Process: Hallucinations (denied), Delusions, Circumstantial, Other (all symptoms seems to be chronic) - Suicidal Ideation Suicidal Ideation: No - Homicidal Ideation Homicidal Ideation: No Goal/Treatment Plan - Goal/Treatment Plan Need for Continued Stay: Remain at risks for inpatient hospitalization, Severe depression anxiety, Discharge may exacerbated symptoms, Severe functional impairment Progress Toward Problem(s) and Goals/Treatment Plan: Milieu/structure/supportive therapy Medical consult for asthma and limping, h/o left ankle injury SW consultation for discharge plan and social issues Med management risperdal 2mg po amhs. sonata and PRN meds Family involvement Follow up on labs Will monitor closely Pt was educated about risk/benefits and alternatives of medications, coping strategies (safety plan, suicide prevention), relapse prevention, importance of follow up with psychiatrist and therapist, stay away from drugs/alcohol/smoking will consider to call for [facility] screening, pt submitted 48hr notice 03/05/18 nutritional consult. d/w with [facility] PACT, PACT recommended screening and possible commitment. Estimated Date of D/C: 03/09/18
--- NOTE | 2018-03-07 14:20 | PN ---
Copied To: Freeman Nash DO Attending MD: Freeman Nash DO DATE: 03/07/2018 SUBJECTIVE: I saw her in the Psychiatric Unit. Resting comfortably in bed. I am finding out that she will be discharged today, she signed a 48-hour release. She is on Ativan, Maalox, milk of magnesia, NicoDerm, Risperdal, Sonata, and Tylenol. I discussed with her not smoking anymore and also, not to do cocaine anymore. PHYSICAL EXAMINATION: VITAL SIGNS: She has a temperature of 98, 73 pulse, 95/50 blood pressure, 18 respiratory rate. HEENT: Head is atraumatic, normocephalic. HEART: Regular rate. LUNGS: Decreased breath sounds, but clear. ABDOMEN: Soft. EXTREMITIES: No edema. LABORATORY DATA: She has a 5.4 white count, 13.2 hemoglobin, 42.9 hematocrit with 238 platelets. She has a 141 sodium, potassium better and 4.2, BUN is 13, creatinine 0.7. GFR is greater than 60. Sugar is 95, calcium 9.4. Total bili is 0.78. AST is 17, ALT is 15, alkaline phosphatase is 59, total protein is 7.3. TSH is 1.78. Cholesterol is 110. Urine was clean. Toxicology shows cocaine, we discussed not doing anymore, also quitting smoking. nonreactive. As per Psychiatry, I understand she signed a 48 hours, might be leaving today, I hope she will behave and take her medications as per Psychiatry and not smoke and not do cocaine anymore. Freeman Nash DO MTDD
[2018-03-07 16:34] VITALS: BP 86/52; PULSE 87
--- NOTE | 2018-03-08 13:37 | PN ---
Copied To: Freeman Nash DO Attending MD: Freeman Nash DO DATE: 03/08/2018 SUBJECTIVE: I saw her resting comfortably in bed. She is telling me she is going home today. She signed the 48-hour, she wants the AMA. She is on Ativan, Maalox, milk of magnesia, Nicoderm, Risperdal, Sonata and Tylenol. PHYSICAL EXAMINATION: VITAL SIGNS: 98 temp, 87 pulse, 86/52 blood pressure, 18 respiratory rate. HEENT: Head is atraumatic, normocephalic. HEART: Regular rate. LUNGS: Clear to auscultation. ABDOMEN: Soft. EXTREMITIES: No edema. LABORATORY DATA: Last labs was on the first, she did well with her CBC, she did well with her chemistry. Last TSH was 1.78. PLAN: I discussed with her no more cocaine and try to quit smoking as best she can and hopefully, she will do well and follow up in the outpatient and ask her Psychiatry about her medications. End of the dictation on Pushpa Gavin, who is going AMA today. Freeman Nash DO
--- NOTE | 2018-03-09 16:19 | PCM.PYCHDC ---
Mental Status Examination - Mental Status Examination Orientation: Person, Place, Situation, Time Memory: Intact Mood: Neutral Affect: Constricted Attention: Poor (Chronic) Concentration: Poor (cchronic) Association: Loose (chronic but with much improvement) Fund of Knowledge: Poor (chronic) Formal Thought Process: No Impairment Description of patient's judgement and insight: Pt has improved insight into mental and medical illness, pt was compliant with medications and unit rules and regulations, pt was going to groups, was calm, cooperative, socially appropriate, no behavioral incidents, no agitation, no aggression. Psychotic Thoughts and Behaviors: Pt denied v/a/t hallucinations, denied paranoid ideations, pt does not appear to be psychotic, and thought process is goal directed. Suicidal Ideation: No Current Homicidal Ideation?: No Plan: pt adamantly denied thoughts of harming self or others denied intent or plan. Discharge Summary - Discharge Note Reason for Hospitalization: pt was admitted for psychosis, disorganized thoughts and behavior, see initial evaluation for more detailed information. Psychiatric History (includes Medical, Family, Personal Hx): see HPI Laboratory Data: 03/07/18 07:30 03/07/18 07:30 Lab Results 03/07/18 08:32: Urine HCG, Qual Negative 03/07/18 07:30: Sodium 141, Potassium 4.2, Chloride 106, Carbon Dioxide 25, Anion Gap 15, BUN 13, Creatinine 0.7, Est GFR ( Amer) > 60, Est GFR (Non- Af Amer) > 60, Random Glucose 95, Calcium 9.4, Total Bilirubin 0.7, AST 17, ALT 15, Alkaline Phosphatase 59, Total Protein 7.3, Albumin 4.2, Globulin 3.1, Albumin/Globulin Ratio 1.4 03/07/18 07:30: WBC 5.4 D, RBC 4.90, Hgb 15.2 D, Hct 43.9, MCV 89.6, MCH 31.0 , MCHC 34.6, RDW 13.0, Plt Count 238, MPV 9.4 03/05/18 07:15: RPR Nonreactive 03/05/18 07:15: Free T4 0.60 L, TSH 3rd Generation 1.78 03/05/18 07:15: Fasting Glucose 83, Triglycerides 47, Cholesterol 110 L, LDL Cholesterol Direct 60, HDL Cholesterol 44 03/04/18 08:00: Urine Opiates Screen Negative, Urine Methadone Screen Negative, Ur Barbiturates Screen Negative, Ur Phencyclidine Scrn Negative, Ur Amphetamines Screen Negative, U Benzodiazepines Scrn Negative, U Oth Cocaine Metabols Positive H, U Cannabinoids Screen Negative 03/04/18 08:00: Urine Color Yellow, Urine Appearance Clear, Urine pH 6.0, Ur Specific [place] 1.020, Urine Protein Negative, Urine Glucose (UA) Negative, Urine Ketones Negative, Urine Blood Trace-intact H, Urine Nitrate Negative, Urine Bilirubin Negative, Urine Urobilinogen 0.2, Ur Leukocyte Esterase Negative , Urine RBC 0 - 2, Urine WBC 1 - 3, Ur Epithelial Cells 1 - 3, Urine Bacteria Few 03/03/18 21:31: Alcohol, Quantitative < 10 03/03/18 21:31: Salicylates < 1 L, Acetaminophen < 10.0 L 03/03/18 21:31: Sodium 143, Potassium 3.0 L, Chloride 108 H, Carbon Dioxide 23, Anion Gap 14, BUN 9, Creatinine 0.7, Est GFR ( Amer) > 60, Est GFR (Non- Af Amer) > 60, Random Glucose 121 H, Calcium 8.1 L, Magnesium 1.8, Total Bilirubin 0.3, AST 19, ALT 28, Alkaline Phosphatase 105, Total Protein 5.8, Albumin 3.2, Globulin 2.6, Albumin/Globulin Ratio 1.2 03/03/18 21:31: WBC 7.4, RBC 3.79, Hgb 11.6 L, Hct 33.9 L, MCV 89.4, MCH 30.6, MCHC 34.2, RDW 13.1, Plt Count 211, MPV 9.3, Gran % 61.4, Lymph % (Auto) 28.0, [place] % (Auto) 6.1 H, Eos % (Auto) 4.4, Baso % (Auto) 0.1, Gran # 4.55, Lymph # ( Auto) 2.1, [place] # (Auto) 0.5, Eos # (Auto) 0.3, Baso # (Auto) 0.01 Vital Signs Temp Pulse Resp BP Pulse Ox 03/07/18 16:00 87 86/52 L 03/07/18 07:04 98.0 F 73 18 95/50 L 03/06/18 16:00 90 91/58 L 03/06/18 06:47 97.3 F L 73 17 101/64 03/05/18 16:00 83 96/60 L 03/05/18 06:50 98.8 F 73 16 97/64 L 03/04/18 18:12 82 119/63 03/04/18 16:18 72 92/55 L 03/04/18 13:29 20 03/04/18 10:15 80 20 110/65 100 03/04/18 09:00 98 F 85 119/53 L 99 03/04/18 08:43 98 F 75 19 119/72 98 03/04/18 05:38 88 16 113/72 99 03/04/18 02:07 98.6 F 77 18 120/86 100 03/03/18 23:00 80 18 120/72 99 03/03/18 21:18 98.5 F 76 18 135/89 99 Consultations:: List each consultation separately and include: 1. Reason for request. 2. Findings. 3. Follow-up Consultations: medical consult appreciated see notes for more detailed information Summary of Hospital Course include:: 1. Description of specific treatment plan utilized for patients during their course of treatmen. 2. Summarize the time- course for resolution of acute symptoms and/or regressed behaviors. 3. Describe issues identified and worked on during hospitalization. 4. Describe medication utilized. 5. Describe medical problems identified and treated. 6. Reassessment of suicide risk Summary of Hospital Course: shortly pt is 37yo with reported h/o schizophrenia, h/o cocaine abuse, pt was brought in to [place] [facility] [place] of psychosis, and generalized body ache and dizziness, pt reported being noncompliant with meds and f/u appointments,pt required further evaluation and stabilization and observation. initially patient was seen at the treatment team meeting room, pt presented with poor personal hygiene, strong body odor, fair ADLs pt had poor dental hygiene, pt seems to be poor and unreliable historian, was keep repeating that she is tired and she is feeling dizzy. pt reported that she was released [place] [facility] [place] meds, pt said that she staid on the psych unit for observation and no prescriptions were given to her. as pe ED report pt said she was not taking her psych meds for 4 months because of her relocation to her sister's house. pt presented to be disorganized, said that she was feeling "dizzy" before coming to the hospital, had difficulties to describe what does she mean by dizziness. Pt was keep trying to lay on the desk while talking, needs to be redirected. In ED pt had impression that something was hurt inside of her and she felt that her umbilical cord was cut off. pt was also mumbling something incoherently about "I feel like I'm walking in ...I feel like i'm going to soon." "someone is doing roman catholic on me, I don't know who is trying to do roman catholic" in ED pt said she was hearing voices telling her to kill someone, but denied any intent or plan to kill self or others. pt reported that she smokes cocaine "every other day". pt smokes about a pack a day of cigarettes, counseling provided, nicotine patch offered. past psych h/o: unknown, pt reported h/o schizophrenia, pt denied h/o suicidal attempts but ?. pt said she was on risperdal before and wants to continue on it. Family h/o: unknown Social h/o: unknown. Medical h/o: Asthma, pt said that she broke her ankle last winter, was observed limping while walking, pt seems to be malnourished. 03/03/18 21:31 03/03/18 21:31 Lab Results 03/05/18 07:15: Free T4 0.60 L, TSH 3rd Generation 1.78 03/05/18 07:15: Fasting Glucose 83, Triglycerides 47, Cholesterol 110 L, LDL Cholesterol Direct 60, HDL Cholesterol 44 03/04/18 08:00: Urine Opiates Screen Negative, Urine Methadone Screen Negative, Ur Barbiturates Screen Negative, Ur Phencyclidine Scrn Negative, Ur Amphetamines Screen Negative, U Benzodiazepines Scrn Negative, U Oth Cocaine Metabols Positive H, U Cannabinoids Screen Negative 03/04/18 08:00: Urine Color Yellow, Urine Appearance Clear, Urine pH 6.0, Ur Specific [place] 1.020, Urine Protein Negative, Urine Glucose (UA) Negative, Urine Ketones Negative, Urine Blood Trace-intact H, Urine Nitrate Negative, Urine Bilirubin Negative, Urine Urobilinogen 0.2, Ur Leukocyte Esterase Negative , Urine RBC 0 - 2, Urine WBC 1 - 3, Ur Epithelial Cells 1 - 3, Urine Bacteria Few 03/03/18 21:31: Alcohol, Quantitative < 10 03/03/18 21:31: Salicylates < 1 L, Acetaminophen < 10.0 L 03/03/18 21:31: Sodium 143, Potassium 3.0 L, Chloride 108 H, Carbon Dioxide 23, Anion Gap 14, BUN 9, Creatinine 0.7, Est GFR ( Amer) > 60, Est GFR (Non- Af Amer) > 60, Random Glucose 121 H, Calcium 8.1 L, Magnesium 1.8, Total Bilirubin 0.3, AST 19, ALT 28, Alkaline Phosphatase 105, Total Protein 5.8, Albumin 3.2, Globulin 2.6, Albumin/Globulin Ratio 1.2 03/03/18 21:31: WBC 7.4, RBC 3.79, Hgb 11.6 L, Hct 33.9 L, MCV 89.4, MCH 30.6, MCHC 34.2, RDW 13.1, Plt Count 211, MPV 9.3, Gran % 61.4, Lymph % (Auto) 28.0, [place] % (Auto) 6.1 H, Eos % (Auto) 4.4, Baso % (Auto) 0.1, Gran # 4.55, Lymph # ( Auto) 2.1, [place] # (Auto) 0.5, Eos # (Auto) 0.3, Baso # (Auto) 0.01 Vital Signs Temp Pulse Resp BP Pulse Ox 03/05/18 06:50 98.8 F 73 16 97/64 L 03/04/18 18:12 82 119/63 03/04/18 16:18 72 92/55 L 03/04/18 13:29 20 03/04/18 10:15 80 20 110/65 100 03/04/18 09:00 98 F 85 119/53 L 99 03/04/18 08:43 98 F 75 19 119/72 98 03/04/18 05:38 88 16 113/72 99 03/04/18 02:07 98.6 F 77 18 120/86 100 03/03/18 23:00 80 18 120/72 99 03/03/18 21:18 98.5 F 76 18 135/89 99 right after the treatment team meeting pt submitted 48hr notice, requesting d/c "because I need to be somewhere by Monday" it was found that patient was found down by [facility] team meeting took place with NIKHIL paulson recommended screening pt was screened by [facility] but was found to be not committable Overall pt improved, pt's affect became brighter, pt was less depressed, has realistic future oriented plans, pt also does not appear to be psychotic but mildly disorganized, not anxious, pt was socially appropriate, no behavioral issues, pt submitted 48hr, was screened but was not accepted, this va underwriter had no other choice then d/c pt AMA. At the time of the discharge pt denied been depressed, denied thoughts of harming self or others, denied psychotic symptoms, and pt does not appeared to be psychotic, denied been anxious, pt is not in imminent danger to self or others, will be following up with psychiatrist of her choice, it is patient responsibility to follow up with outpatient clinic, PMD as well as specialists ( see note for more detailed information). In case pt will need to obtain results of studies pending at discharge pt was provided with contact information of Psychiatric Inpatient unit [phone] as well as Medical Record Department [phone]. Counseling about smoking and alcohol cessation provided AA meetings as well as smoking cessation treatment program information was provided by the no meds given to the pt Pt was educated about safety plan in case of worsening of symptoms or in case of suicidal or homicidal ideation call 911 or go to the nearest ER, also was educated to take meds as prescribed and stay away from drugs, pt verbalized understanding. - Diagnosis (1) Cocaine abuse Status: Chronic Priority: Medium (2) Schizophrenia Status: Chronic Priority: High - Final Diagnosis (DSM 5) Condition upon Discharge: IMPROVED Disposition: AGAINST MEDICAL ADVICE Follow-up Treatment Plan: At the time of the discharge pt denied been depressed, denied thoughts of harming self or others, denied psychotic symptoms, and pt does not appeared to be psychotic, denied been anxious, pt is not in imminent danger to self or others, will be following up with psychiatrist of her choice, it is patient responsibility to follow up with outpatient clinic, PMD as well as specialists ( see note for more detailed information). In case pt will need to obtain results of studies pending at discharge pt was provided with contact information of Psychiatric Inpatient unit [phone] as well as Medical Record Department [phone]. Counseling about smoking and alcohol cessation provided AA meetings as well as smoking cessation treatment program information was provided by the SW no meds given to the pt Pt was educated about safety plan in case of worsening of symptoms or in case of suicidal or homicidal ideation call 911 or go to the nearest ER, also was educated to take meds as prescribed and stay away from drugs, pt verbalized understanding. - Smoking Cessation Smoking Cessation Medication prescribed: No - Antipsychotic Medications Pt discharged on 2 or more routine antipsychotic medications: No
== END 2018-03-08 12:11 | disposition left against medical advice (07) | DRG 885 ==
LOC: ED 20:38 → ERH 03-04 08:42 → PSYC 03-04 10:13
PROVIDERS: ADMIT Psychiatry & Neurology Psychiatry; ATTEND Psychiatry & Neurology Psychiatry
PROC: GZ3ZZZZ Medication Management (ICD-10-PCS; principal; 2018-03-04)
DX: F20.9 Schizophrenia, unspecified (principal); Z68.1 Body mass index [BMI] 19.9 or less, adult; F14.10 Cocaine abuse, uncomplicated; J45.909 Unspecified asthma, uncomplicated; Z91.14 Patient's other noncompliance with medication regimen; R63.6 Underweight; F17.210 Nicotine dependence, cigarettes, uncomplicated

== ENCOUNTER 2018-03-11 21:01 | Inpatient (IN) | payer MEDICARE, MEDICAID ==
[2018-03-11 21:13] VITALS: BMI 16.9
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
[2018-03-12 02:09] LABS: BASO # 0.01 K/mm3 (0.0-2.0); BASO % 0.2 % (0.0-3.0); EOS # 0.2 (0.0-0.7); EOS % 3.7 % (1.5-5.0); GRAN # 2.76 (1.4-6.5); GRAN % 48.6 % (50.0-68.0); LYMPH # 2.2 (1.2-3.4); LYMPH % 39.2 % (22.0-35.0); MEAN CELL VOLUME 91.3 fl (80.0-105.0); MEAN PLATELET VOLUME 9.7 fl (7.0-11.0); MONO # 0.5 (0.1-0.6); MONO % 8.3 % (1.0-6.0); RBC 3.9 10^6/uL (3.5-6.1); RED CELL DISTRIBUTION WIDTH 12.8 % (11.5-14.5); WHITE BLOOD COUNT 5.7 10^3/ul (4.5-11.0)
[2018-03-12 02:14] LABS: HEMOGLOBIN 12.1 g/dL (12.0-16.0)
[2018-03-12 02:16] LABS: ACETAMINOPHEN < 10.0 ug/ml (10.0-20.0); SALICYLATE < 1 mg/dL (2.0-20.0)
[2018-03-12 02:17] LABS: ALB/GLOB RATIO 1.2 (1.1-1.8); ALBUMIN 3.2 g/dL (3.0-4.8); ALT/SGPT 26 U/L (7-56); AST/SGOT 21 U/L (14-36); BLOOD UREA NITROGEN 16 mg/dL (7-21); CALCIUM 8.4 mg/dL (8.4-10.5); GFR AFRICAN-AMERICAN > 60; GFR NON-AFRICAN AMERICAN > 60
[2018-03-12] MEDS ORDERED: Potassium Chloride 20 mEq ER Tab PO STA (02:18)
--- NOTE | 2018-03-12 07:20 | ED PDOC ---
Physical Exam Vital Signs Reviewed: Yes Vital Signs Temp Pulse Resp BP Pulse Ox 03/12/18 07:56 98.3 F 73 18 123/70 98 03/12/18 04:46 72 20 128/88 98 03/12/18 02:15 97.8 F 72 16 136/84 99 03/11/18 21:11 98.8 F 72 16 118/74 99 Temperature: Afebrile Blood Pressure: Normal Pulse: Regular Respiratory Rate: Normal Appearance: Positive for: Well-Appearing, Non-Toxic, Comfortable Pain Distress: None Mental Status: Positive for: Alert and Oriented X 3 - Systems Exam Head: Present: Atraumatic, Normocephalic Pupils: Present: PERRL Extroacular Muscles: Present: EOMI Conjunctiva: Present: Normal Mouth: Present: Moist Mucous Membranes Neck: Present: Normal Range of Motion Respiratory/Chest: Present: Clear to Auscultation, Good Air Exchange. No: Respiratory Distress, Accessory Muscle Use Cardiovascular: Present: Regular Rate and Rhythm, Normal S1, S2. No: Murmurs Abdomen: No: Tenderness, Distention, Peritoneal Signs Back: Present: Normal Inspection Upper Extremity: Present: Normal Inspection. No: Cyanosis, Edema Lower Extremity: Present: Normal Inspection. No: Edema Neurological: Present: GCS=15, CN II-XII Intact, Speech Normal Skin: Present: Warm, Dry, Normal Color. No: Rashes Psychiatric: Present: Alert, Oriented x 3, Normal Insight, Normal Concentration Medical Decision Making ED Course and Treatment: 03/12/18 07:18 Case endorsed to me by Dr. Abreu for pending face to face evaluation by psychiatrist and urinalysis. Patient is a 37 year old female who presented to the Emergency department earlier today complaining of episodes of auditory and visual hallucinations. Patient is currently resting in bed in no acute distress. Patient presents no new complaints. 03/12/18 09:24 Dr. Ivy Millan came to evaluate patient. She agrees to admit patient to her service for psychiatric care. Patient is medically cleared for psych admission. - Lab Interpretations Lab Results: 03/12/18 01:50 03/12/18 01:50 Lab Results 03/12/18 08:20: Urine Opiates Screen Negative, Urine Methadone Screen Negative, Ur Barbiturates Screen Negative, Ur Phencyclidine Scrn Negative, Ur Amphetamines Screen Negative, U Benzodiazepines Scrn Negative, U Oth Cocaine Metabols Positive H, U Cannabinoids Screen Negative 03/12/18 08:20: Urine Color Yellow, Urine Appearance Clear, Urine pH 7.0, Ur Specific [place] 1.015, Urine Protein Trace H, Urine Glucose (UA) Negative, Urine Ketones Trace H, Urine Blood Moderate H, Urine Nitrate Negative, Urine Bilirubin Negative, Urine Urobilinogen 2.0 H, Ur Leukocyte Esterase Trace H, Urine RBC 15 - 20, Urine WBC 2 - 5, Ur Epithelial Cells 1 - 3, Urine Bacteria Mod, Urine HCG, Qual Negative 03/12/18 01:50: Alcohol, Quantitative < 10 03/12/18 01:50: Salicylates < 1 L, Acetaminophen < 10.0 L 03/12/18 01:50: Sodium 142, Potassium 3.2 L, Chloride 107, Carbon Dioxide 26, Anion Gap 12, BUN 16, Creatinine 0.8, Est GFR ( Amer) > 60, Est GFR (Non- Af Amer) > 60, Random Glucose 105, Calcium 8.4, Magnesium 1.9, Total Bilirubin 0.3, AST 21, ALT 26, Alkaline Phosphatase 84, Total Protein 5.9, Albumin 3.2, Globulin 2.7, Albumin/Globulin Ratio 1.2 03/12/18 01:50: WBC 5.7, RBC 3.90, Hgb 12.1 D, Hct 35.6 L, MCV 91.3, MCH 31.0, MCHC 34.0, RDW 12.8, Plt Count 223, MPV 9.7, Gran % 48.6 L, Lymph % (Auto) 39.2 H, [place] % (Auto) 8.3 H, Eos % (Auto) 3.7, Baso % (Auto) 0.2, Gran # 2.76, Lymph # (Auto) 2.2, [place] # (Auto) 0.5, Eos # (Auto) 0.2, Baso # (Auto) 0.01 - Medication Orders Current Medication Orders: Discontinued Medications Potassium Chloride (K-Dur 20 Meq Er Tab) 40 meq PO STAT STA Stop: 03/12/18 02:19 - Scribe Statement The provider has reviewed the documentation as recorded by the Scriblillian Schmitz. All medical record entries made by the Scribe were at my direction and personally dictated by me. I have reviewed the chart and agree that the record accurately reflects my personal performance of the history, physical exam, medical decision making, and the department course for this patient. I have also personally directed, reviewed, and agree with the discharge instructions and disposition. Disposition/Present on Arrival - Present on Arrival Any Indicators Present on Arrival: No History of DVT/PE: No History of Uncontrolled Diabetes: No Urinary Catheter: No History of Decub. Ulcer: No History Surgical Site Infection Following: None - Disposition Have Diagnosis and Disposition been Completed?: Yes Diagnosis: Schizophrenia Disposition Time: 09:25 Patient Plan: Admission Condition: FAIR Forms: Mytonomy (Sammarinese)
[2018-03-12 08:39] LABS: URINE BILIRUBIN NEGATIVE (NEGATIVE); URINE BLOOD MODERATE (NEGATIVE); URINE GLUCOSE (UA) NEGATIVE (NEGATIVE); URINE LEUKOCYTE ESTERASE TRACE Leu/uL (NEGATIVE); URINE PROTEIN TRACE mg/dL (<30 mg/dL)
[2018-03-12 08:40] LABS: URINE APPEARANCE CLEAR (CLEAR); URINE COLOR YELLOW (YELLOW)
[2018-03-12 08:41] LABS: HCG,QUALITATIVE URINE NEGATIVE (NEGATIVE)
[2018-03-12 08:46] LABS: URINE BACTERIA MOD (NEG); URINE RBC 15 - 20 /hpf (0-2)
[2018-03-12 08:56] LABS: BARBITURATES, UR NEGATIVE (NEGATIVE); BENZODIAZEPINES, UR NEGATIVE (NEGATIVE); OPIATES, UR NEGATIVE (NEGATIVE); PHENCYCLIDINE, UR NEGATIVE (NEGATIVE)
[2018-03-12 09:38] VITALS: O2SAT 99
[2018-03-12] MEDS ORDERED: Alum-Mag Hydrox-Simethicone Susp (30 mL) PO PRN (11:16)
[2018-03-12] MEDS ORDERED: Magnesium Hydroxide Susp 30 ml UD PO PRN (11:16)
[2018-03-12 12:21] VITALS: RESP 20
--- NOTE | 2018-03-12 14:46 | PCM.BM ---
<Azeem Del Rosario - Last Filed: 03/12/18 14:42> Treatment Plan Problems - Problems identified on initial assessmt altered thought process Date Initiated: 03/12/18 Time Initiated: 11:00 Assessment reference: NA Priority: 1 Comment: disorganized thinking proces,v/a hallucination Medication non compliance Date Initiated: 03/12/18 Time Initiated: 11:00 Assessment reference: NA Status: Active Priority: 2 Comment: no taking her meds Drug abuse Date Initiated: 03/12/18 Time Initiated: 11:00 Assessment reference: NA Status: Active Priority: 3 Treatment assets and liabiliti Patient Assests: cooperative, ADL independent, negotiates basic needs Patient Liabilities: live alone, poor support system, substance abuse - Milieu Protocol Maintain good personal hygiene: every shift Encourage regular showers, every shift Remind patient to perform daily oral care, every shift Assist patient to perform ADL's Conduct patient checks and document Observation sheet: Q15 minutes Maintain personal safety: every shift Educate patient to report safety concerns to staff, every shift Monitor environment for contraband/sharps Medication safety: Monitor for expected outcome, potential side effects: every shift, Assess barriers to learning: every shift, Assess readiness for medication education: every shift Discharge/Continuing Care - Education Needs Education Needs: Patient Medication, Patient Diagnosis/Disease Process, Patient Coping Skills, Patient Placement options, Patient Community resources, Patient Activities of Daily Living, Patient Nutrition, Patient Uses of Medical Equipment , Patient Health Practices/Safety, Patient Personal Hygiene/Grooming, Patient Aftercare Safety Plan - Discharge Discharge Criteria: Tolerates medication w/o severe side effects, Free of paranoid thoughts, Normal sleep pattern, Ability to care for self, Reduction of target symptoms Discharge to:: Home <Ivy Millan - Last Filed: 03/13/18 11:08> - Diagnosis (1) Schizophrenia Status: Chronic Interventions: 03/13/18 11:08 Psychoeducation/psychotherapy Psychopharmacology/adjustment of medications as needed/ monitoring possible side effects Evaluate pt on daily basis Compliance with medications and follow up appointments Long acting medication if pt is noncompliant with pill form Suicide and homicide risk assessment and prevention, coping strategies, safety plan Relapse prevention Reduction of symptoms Improve functional status Possible assertive community treatment Cognitive behavioral therapy Family involvement Possible social skill training as outpatient (2) Cocaine abuse Status: Chronic Interventions: 03/13/18 11:08 Monitoring withdrawal symptoms Medical detoxification Pharmacotherapy for alcohol/benzos/opioid dependence Maintaining sobriety Relapse prevention Possible rehabilitation Motivational interviewing 12-step programs: AA meetings <Jessica Loredo - Last Filed: 03/14/18 14:42> Family Contact - Outside Agency [facility]-PACT Care involvment: Information-sharing Agency contact [facility] <Duyen Barnett - Last Filed: 03/14/18 16:29> Family Contact Family involvement: Famliy/SO not involved
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
[2018-03-13 08:00] LABS: GLUCOSE,FASTING 82 mg/dL (65-110); HDL CHOLESTEROL 36 mg/dL (29-60)
[2018-03-13 08:06] LABS: LDL CHOLESTEROL 56 mg/dL (0-129)
[2018-03-13 08:12] LABS: FREE T4 0.57 ng/dL (0.78-2.19)
--- NOTE | 2018-03-13 15:20 | PCM.PYCHPN ---
Psychiatric Progress Note - Psychiatric Progress Note Patient seen today, length of contact: 30min Patient Chief Complaint: "I thought my food was poisoned" Problems Identified/Issues Discussed: Suicide/ homicide prevention, past psychiatric h/o, current psychiatric symptoms , medical problems, risk/benefits and alternatives of medications, medications compliance, coping strategies, substance abuse h/o, relapse prevention, importance of follow up with psychiatrist and therapist, discharge plan. Medical Problems: pt hurt her ankle, limping, not new, was seen by medical team last admission Diagnostic Results: 03/12/18 01:50 03/12/18 01:50 Lab Results 03/13/18 07:00: Free T4 0.57 L, TSH 3rd Generation 0.38 L 03/13/18 07:00: Fasting Glucose 82, Triglycerides 33 L, Cholesterol 105 L, LDL Cholesterol Direct 56, HDL Cholesterol 36 03/12/18 08:20: Urine Opiates Screen Negative, Urine Methadone Screen Negative, Ur Barbiturates Screen Negative, Ur Phencyclidine Scrn Negative, Ur Amphetamines Screen Negative, U Benzodiazepines Scrn Negative, U Oth Cocaine Metabols Positive H, U Cannabinoids Screen Negative 03/12/18 08:20: Urine Color Yellow, Urine Appearance Clear, Urine pH 7.0, Ur Specific [place] 1.015, Urine Protein Trace H, Urine Glucose (UA) Negative, Urine Ketones Trace H, Urine Blood Moderate H, Urine Nitrate Negative, Urine Bilirubin Negative, Urine Urobilinogen 2.0 H, Ur Leukocyte Esterase Trace H, Urine RBC 15 - 20, Urine WBC 2 - 5, Ur Epithelial Cells 1 - 3, Urine Bacteria Mod, Urine HCG, Qual Negative 03/12/18 01:50: Alcohol, Quantitative < 10 03/12/18 01:50: Salicylates < 1 L, Acetaminophen < 10.0 L 03/12/18 01:50: Sodium 142, Potassium 3.2 L, Chloride 107, Carbon Dioxide 26, Anion Gap 12, BUN 16, Creatinine 0.8, Est GFR ( Amer) > 60, Est GFR (Non- Af Amer) > 60, Random Glucose 105, Calcium 8.4, Magnesium 1.9, Total Bilirubin 0.3, AST 21, ALT 26, Alkaline Phosphatase 84, Total Protein 5.9, Albumin 3.2, Globulin 2.7, Albumin/Globulin Ratio 1.2 03/12/18 01:50: WBC 5.7, RBC 3.90, Hgb 12.1 D, Hct 35.6 L, MCV 91.3, MCH 31.0, MCHC 34.0, RDW 12.8, Plt Count 223, MPV 9.7, Gran % 48.6 L, Lymph % (Auto) 39.2 H, [place] % (Auto) 8.3 H, Eos % (Auto) 3.7, Baso % (Auto) 0.2, Gran # 2.76, Lymph # (Auto) 2.2, [place] # (Auto) 0.5, Eos # (Auto) 0.2, Baso # (Auto) 0.01 Vital Signs Temp Pulse Resp BP Pulse Ox 03/12/18 15:48 71 87/35 L 03/12/18 10:42 20 03/12/18 10:02 98.4 F 72 16 140/60 99 03/12/18 09:37 98.4 F 72 16 140/60 99 03/12/18 07:56 98.3 F 73 18 123/70 98 03/12/18 04:46 72 20 128/88 98 03/12/18 02:15 97.8 F 72 16 136/84 99 03/11/18 21:11 98.8 F 72 16 118/74 99 DSM 5 Symptoms Update: Refer to the Psychiatric Assess & History-Initial dated 03/05/18 for this H & P. Reviewed, no changes. shortly pt is 37yo with reported h/o schizophrenia, h/o cocaine abuse, pt was brought in to the [facility] for evaluation of psychosis, hearing voices, feeling unsafe, pt was admitted to this facility 03/04/18, it was found that pt has long h/o schizophrenia, history of compliance with medications and follow-up appointment, patient was followed up by [facility] PACT, pt was discharged AMA on 03/08/18 after being screened and being not accepted for involuntary commitment by [facility], pt was discharged from the [facility] over this weekend, pt brought herself back to [place] looking for help for her psychotic symptoms, pt was noncompliant with meds, said that she hears voices telling her to kill others, please see consultation note at ED 03/12/18 for more detailed information. patient was resumed Risperdal, as per staff patient was acting bizarre and paranoid, required IM Geodon because patient was agitated, was feeling that her food was poisoned, required to be placed in quiet room. Patient was seen today at the morning time, patient presented to be disorganized , psychotic, paranoid, staring at this policy writer sales, not willing to be interviewed, disengaged. hygiene is poor. pt presented bizarre, but not agitated. PACT team was contacted. patient tolerates medications well, no side effects observed or reported, aims 0 , no EPS. Impression: DSM 5 Diagnosis: as per h/o schizophrenia cocaine abuse r/o substance induced psychosis Medication Change: Yes (risperdal increased) Medical Record Reviewed: Yes Consults ordered or reviewed: patient was seen by medical team and the emergency room Mental Status Examination - Cognitive Function Orientation: Person, Place Memory: Impaired Attention: Poor Concentration: Poor Association: Loose Fund of Knowledge: Poor - Mood Mood: Depressed - Affect Affect: Constricted - Speech Speech: Appropriate (unerproductive) - Formal Thought Process Formal Thought Process: Hallucinations, Delusions, Paranoia, Loosening of associations - Suicidal Ideation Suicidal Ideation: No - Homicidal Ideation Homicidal Ideation: No Plan: denied Goal/Treatment Plan - Goal/Treatment Plan Need for Continued Stay: Remain at risks for inpatient hospitalization, Severe depression anxiety, Discharge may exacerbated symptoms, Failed transitioning, Severe functional impairment Progress Toward Problem(s) and Goals/Treatment Plan: Milieu/structure/supportive therapy Medical consult will be considered SW consultation for discharge plan and social issues Med management risperdal 1mg po bid and 2mg po hs remeron 15mg po hs for insomnia PRN meds Family involvement Follow up on labs Will monitor closely Pt was educated about risk/benefits and alternatives of medications, coping strategies (safety plan, suicide prevention), relapse prevention, importance of follow up with psychiatrist and therapist, stay away from drugs/alcohol/smoking d/w with [facility] PACT Estimated Date of D/C: 03/21/18
--- NOTE | 2018-03-14 15:32 | PCM.PYCHPN ---
Psychiatric Progress Note - Psychiatric Progress Note Patient seen today, length of contact: 30min Patient Chief Complaint: "I was not well" Problems Identified/Issues Discussed: Suicide/ homicide prevention, past psychiatric h/o, current psychiatric symptoms , medical problems, risk/benefits and alternatives of medications, medications compliance, coping strategies, substance abuse h/o, relapse prevention, importance of follow up with psychiatrist and therapist, discharge plan. Medical Problems: pt hurt her ankle, limping, not new, was seen by medical team last admission Diagnostic Results: 03/12/18 01:50 03/12/18 01:50 Lab Results 03/13/18 07:00: Free T4 0.57 L, TSH 3rd Generation 0.38 L 03/13/18 07:00: Fasting Glucose 82, Triglycerides 33 L, Cholesterol 105 L, LDL Cholesterol Direct 56, HDL Cholesterol 36 03/12/18 08:20: Urine Opiates Screen Negative, Urine Methadone Screen Negative, Ur Barbiturates Screen Negative, Ur Phencyclidine Scrn Negative, Ur Amphetamines Screen Negative, U Benzodiazepines Scrn Negative, U Oth Cocaine Metabols Positive H, U Cannabinoids Screen Negative 03/12/18 08:20: Urine Color Yellow, Urine Appearance Clear, Urine pH 7.0, Ur Specific [place] 1.015, Urine Protein Trace H, Urine Glucose (UA) Negative, Urine Ketones Trace H, Urine Blood Moderate H, Urine Nitrate Negative, Urine Bilirubin Negative, Urine Urobilinogen 2.0 H, Ur Leukocyte Esterase Trace H, Urine RBC 15 - 20, Urine WBC 2 - 5, Ur Epithelial Cells 1 - 3, Urine Bacteria Mod, Urine HCG, Qual Negative 03/12/18 01:50: Alcohol, Quantitative < 10 03/12/18 01:50: Salicylates < 1 L, Acetaminophen < 10.0 L 03/12/18 01:50: Sodium 142, Potassium 3.2 L, Chloride 107, Carbon Dioxide 26, Anion Gap 12, BUN 16, Creatinine 0.8, Est GFR ( Amer) > 60, Est GFR (Non- Af Amer) > 60, Random Glucose 105, Calcium 8.4, Magnesium 1.9, Total Bilirubin 0.3, AST 21, ALT 26, Alkaline Phosphatase 84, Total Protein 5.9, Albumin 3.2, Globulin 2.7, Albumin/Globulin Ratio 1.2 03/12/18 01:50: WBC 5.7, RBC 3.90, Hgb 12.1 D, Hct 35.6 L, MCV 91.3, MCH 31.0, MCHC 34.0, RDW 12.8, Plt Count 223, MPV 9.7, Gran % 48.6 L, Lymph % (Auto) 39.2 H, [place] % (Auto) 8.3 H, Eos % (Auto) 3.7, Baso % (Auto) 0.2, Gran # 2.76, Lymph # (Auto) 2.2, [place] # (Auto) 0.5, Eos # (Auto) 0.2, Baso # (Auto) 0.01 Vital Signs Temp Pulse Resp BP Pulse Ox 03/12/18 15:48 71 87/35 L 03/12/18 10:42 20 03/12/18 10:02 98.4 F 72 16 140/60 99 03/12/18 09:37 98.4 F 72 16 140/60 99 03/12/18 07:56 98.3 F 73 18 123/70 98 03/12/18 04:46 72 20 128/88 98 03/12/18 02:15 97.8 F 72 16 136/84 99 03/11/18 21:11 98.8 F 72 16 118/74 99 DSM 5 Symptoms Update: shortly pt is 37yo with reported h/o schizophrenia, h/o cocaine abuse, pt was brought in to the [facility] for evaluation of psychosis, hearing voices, feeling unsafe, pt was admitted to this facility 03/04/18, it was found that pt has long h/o schizophrenia, history of compliance with medications and follow-up appointment, [facility], pt was discharged AMA on 03/08/18 after being screened and being not accepted for involuntary commitment by [facility], pt was discharged from the [facility] over this weekend, pt brought herself back to [place] looking for help for her psychotic symptoms, pt was noncompliant with meds, said that she hears voices telling her to kill others, please see consultation note at ED 03/12/18 for more detailed information. as per staff pt was agitated again, it seems each morning pt is agitated, paranoid, requires IM Geodon and ativan. during the treatment team meeting patient presented to be malodorous, did not brush her teeth, s/p IM mumbling very hard to understand, thought process, disengaged pt presented bizarre, but not agitated during the interview. PACT team was contacted, visited pt today. . patient tolerates medications well, no side effects observed or reported, aims 0 , no EPS. Impression: DSM 5 Diagnosis: as per h/o schizophrenia cocaine abuse r/o substance induced psychosis Medication Change: Yes (risperdal increased yesterday, cogentin added) Medical Record Reviewed: Yes Consults ordered or reviewed: patient was seen by medical team and the emergency room Mental Status Examination - Cognitive Function Orientation: Person, Place Memory: Impaired Attention: Poor Concentration: Poor Association: Loose Fund of Knowledge: Poor - Mood Mood: Depressed - Affect Affect: Constricted - Speech Speech: Appropriate (unerproductive) - Formal Thought Process Formal Thought Process: Hallucinations, Delusions, Paranoia, Loosening of associations - Suicidal Ideation Suicidal Ideation: No - Homicidal Ideation Homicidal Ideation: No Goal/Treatment Plan - Goal/Treatment Plan Need for Continued Stay: Remain at risks for inpatient hospitalization, Severe depression anxiety, Discharge may exacerbated symptoms, Failed transitioning, Severe functional impairment Progress Toward Problem(s) and Goals/Treatment Plan: Milieu/structure/supportive therapy Medical consult will be considered SW consultation for discharge plan and social issues Med management risperdal 1mg po bid and 2mg po hs cogentin 0.5mg po bid for EPS prevention remeron 15mg po hs for insomnia PRN meds Family involvement Follow up on labs Will monitor closely Pt was educated about risk/benefits and alternatives of medications, coping strategies (safety plan, suicide prevention), relapse prevention, importance of follow up with psychiatrist and therapist, stay away from drugs/alcohol/smoking d/w with [facility] PACT Estimated Date of D/C: 03/21/18
--- NOTE | 2018-03-15 10:44 | PCM.PYCHPN ---
Psychiatric Progress Note - Psychiatric Progress Note Patient seen today, length of contact: 30min Patient Chief Complaint: "no problems at all" Problems Identified/Issues Discussed: Patient is a 37 yo AA female with reported h/o schizophrenia, h/o cocaine abuse who was was brought in to the [facility] for evaluation of psychosis, hearing voices and feeling unsafe. I reviewed recent notes. Patient remains unstable and symptomatic on the unit. She continues to require prns for agitation secondary to paranoia and disorganization. Her grooming is unkempt and she is minimally engaged during my visit. Indicates that she "has no problems at all" and denies any new discomfort or pain. Patient trails into mumbling during her responses. Affect is preoccupied and bizarre. Staff notes indicate that patient keeps to herself and has been compliant with medications. She is reporting AH and VH of bodies (though doesn't report hallucinations during my visit). Insight and judgement are poor. Diagnostic Results: as per h/o schizophrenia cocaine abuse r/o substance induced psychosis Medication Change: Yes (risperdal increased yesterday, cogentin added) Medical Record Reviewed: Yes Mental Status Examination - Cognitive Function Orientation: Person, Place Memory: Impaired Attention: Poor Concentration: Poor Association: Loose Fund of Knowledge: Poor - Mood Mood: Depressed ("no problems at all") - Affect Affect: Constricted - Speech Speech: Appropriate (unerproductive) - Formal Thought Process Formal Thought Process: Hallucinations (AH and VH of bodies per staff), Delusions, Paranoia, Loosening of associations - Suicidal Ideation Suicidal Ideation: No - Homicidal Ideation Homicidal Ideation: No Goal/Treatment Plan - Goal/Treatment Plan Need for Continued Stay: Remain at risks for inpatient hospitalization, Severe depression anxiety, Discharge may exacerbated symptoms, Failed transitioning, Severe functional impairment Progress Toward Problem(s) and Goals/Treatment Plan: * c/w current tx and plan * No new lab results * Vitals reviewed and noted below: Selected Entries 03/15/18 07:11 Temperature 98.3 F Pulse Rate 78 Respiratory 20 Rate Blood Pressure 100/65 Estimated Date of D/C: 03/21/18
--- NOTE | 2018-03-16 15:44 | PCM.PYCHPN ---
Psychiatric Progress Note - Psychiatric Progress Note Patient seen today, length of contact: 30min Patient Chief Complaint: "I want to go, I hate this place" Problems Identified/Issues Discussed: Suicide/ homicide prevention, past psychiatric h/o, current psychiatric symptoms , medical problems, risk/benefits and alternatives of medications, medications compliance, coping strategies, substance abuse h/o, relapse prevention, importance of follow up with psychiatrist and therapist, discharge plan. Medical Problems: pt hurt her ankle, limping, not new, was seen by medical team last admission Diagnostic Results: 03/12/18 01:50 03/12/18 01:50 Lab Results 03/13/18 07:00: Free T4 0.57 L, TSH 3rd Generation 0.38 L 03/13/18 07:00: Fasting Glucose 82, Triglycerides 33 L, Cholesterol 105 L, LDL Cholesterol Direct 56, HDL Cholesterol 36 03/12/18 08:20: Urine Opiates Screen Negative, Urine Methadone Screen Negative, Ur Barbiturates Screen Negative, Ur Phencyclidine Scrn Negative, Ur Amphetamines Screen Negative, U Benzodiazepines Scrn Negative, U Oth Cocaine Metabols Positive H, U Cannabinoids Screen Negative 03/12/18 08:20: Urine Color Yellow, Urine Appearance Clear, Urine pH 7.0, Ur Specific [place] 1.015, Urine Protein Trace H, Urine Glucose (UA) Negative, Urine Ketones Trace H, Urine Blood Moderate H, Urine Nitrate Negative, Urine Bilirubin Negative, Urine Urobilinogen 2.0 H, Ur Leukocyte Esterase Trace H, Urine RBC 15 - 20, Urine WBC 2 - 5, Ur Epithelial Cells 1 - 3, Urine Bacteria Mod, Urine HCG, Qual Negative 03/12/18 01:50: Alcohol, Quantitative < 10 03/12/18 01:50: Salicylates < 1 L, Acetaminophen < 10.0 L 03/12/18 01:50: Sodium 142, Potassium 3.2 L, Chloride 107, Carbon Dioxide 26, Anion Gap 12, BUN 16, Creatinine 0.8, Est GFR ( Amer) > 60, Est GFR (Non- Af Amer) > 60, Random Glucose 105, Calcium 8.4, Magnesium 1.9, Total Bilirubin 0.3, AST 21, ALT 26, Alkaline Phosphatase 84, Total Protein 5.9, Albumin 3.2, Globulin 2.7, Albumin/Globulin Ratio 1.2 03/12/18 01:50: WBC 5.7, RBC 3.90, Hgb 12.1 D, Hct 35.6 L, MCV 91.3, MCH 31.0, MCHC 34.0, RDW 12.8, Plt Count 223, MPV 9.7, Gran % 48.6 L, Lymph % (Auto) 39.2 H, [place] % (Auto) 8.3 H, Eos % (Auto) 3.7, Baso % (Auto) 0.2, Gran # 2.76, Lymph # (Auto) 2.2, [place] # (Auto) 0.5, Eos # (Auto) 0.2, Baso # (Auto) 0.01 Vital Signs Temp Pulse Resp BP Pulse Ox 03/12/18 15:48 71 87/35 L 03/12/18 10:42 20 03/12/18 10:02 98.4 F 72 16 140/60 99 03/12/18 09:37 98.4 F 72 16 140/60 99 03/12/18 07:56 98.3 F 73 18 123/70 98 03/12/18 04:46 72 20 128/88 98 03/12/18 02:15 97.8 F 72 16 136/84 99 03/11/18 21:11 98.8 F 72 16 118/74 99 DSM 5 Symptoms Update: shortly pt is 37yo with reported h/o schizophrenia, h/o cocaine abuse, pt was brought in to the [facility] for evaluation of psychosis, hearing voices, feeling unsafe, pt was admitted to this facility 03/04/18, it was found that pt has long h/o schizophrenia, history of compliance with medications and follow-up appointment, [facility], pt was discharged AMA on 03/08/18 after being screened and being not accepted for involuntary commitment by [facility], pt was discharged from the [facility] over this weekend, pt brought herself back to [place] looking for help for her psychotic symptoms, pt was noncompliant with meds, said that she hears voices telling her to kill others, please see consultation note at ED 03/12/18 for more detailed information. as per staff pt was agitated again, it seems each morning pt is agitated, paranoid, requires IM Geodon and ativan. he shouldn't is still disorganized, unkempt, impulses unpredictable. during the treatment team meeting patient presented to be malodorous, did not brush her teeth, s/p IM mumbling very hard to understand, thought process, disengaged Patient submitted 48 hour notice yesterday requesting discharge, we'll initiate screening process. pt presented bizarre, but not agitated during the interview. PACT team was contacted, visited pt. patient tolerates medications well, no side effects observed or reported, aims 0 , no EPS. Impression: DSM 5 Diagnosis: as per h/o schizophrenia cocaine abuse r/o substance induced psychosis Medication Change: Yes (Risperdal increased) Medical Record Reviewed: Yes Consults ordered or reviewed: patient was seen by medical team and the emergency room Mental Status Examination - Cognitive Function Orientation: Person, Place Memory: Impaired Attention: Poor Concentration: Poor Association: Loose Fund of Knowledge: Poor - Mood Mood: Depressed ("I hate this place, I want to leave") - Affect Affect: Constricted - Speech Speech: Appropriate (unerproductive) - Formal Thought Process Formal Thought Process: Hallucinations (AH and VH of bodies per staff), Delusions, Paranoia, Loosening of associations - Suicidal Ideation Suicidal Ideation: No - Homicidal Ideation Homicidal Ideation: No Goal/Treatment Plan - Goal/Treatment Plan Need for Continued Stay: Remain at risks for inpatient hospitalization, Severe depression anxiety, Discharge may exacerbated symptoms, Failed transitioning, Severe functional impairment Progress Toward Problem(s) and Goals/Treatment Plan: Milieu/structure/supportive therapy Medical consult will be considered SW consultation for discharge plan and social issues Med management risperdal mg po bid and 2mg po hs cogentin 0.5mg po bid for EPS prevention remeron 15mg po hs for insomnia PRN meds Family involvement Follow up on labs Will monitor closely Pt was educated about risk/benefits and alternatives of medications, coping strategies (safety plan, suicide prevention), relapse prevention, importance of follow up with psychiatrist and therapist, stay away from drugs/alcohol/smoking d/w with [facility] PACT patient submitted 48 hour notice yesterday, will initiate screening process by [facility] Estimated Date of D/C: 03/21/18
[2018-03-17 06:36] VITALS: BP 92/59; PULSE 72; TEMP 98.3
--- NOTE | 2018-03-17 10:13 | PCM.PYCHDC ---
Mental Status Examination - Mental Status Examination Orientation: Person, Place, Situation Memory: Intact Mood: Neutral Affect: Constricted Speech: Appropriate Attention: Poor Concentration: Poor Association: Loose Fund of Knowledge: Poor Formal Thought Process: No Impairment (Patient denies all) Description of patient's judgement and insight: improved I/J compared to admission reports Psychotic Thoughts and Behaviors: Patient denies AVH, paranoia. Delusions were not elicited by this provider however staff notes indicate that patient has been paranoid on the unit. Suicidal Ideation: No Current Homicidal Ideation?: No Discharge Summary - Discharge Note Reason for Hospitalization: shortly pt is 37yo with reported h/o schizophrenia, h/o cocaine abuse, pt was brought in to the [facility] for evaluation of psychosis, hearing voices, feeling unsafe, pt was admitted to this facility 03/04/18, it was found that pt has long h/o schizophrenia, history of compliance with medications and follow-up appointment, patient was followed up by [facility] PACT, pt was discharged AMA on 03/08/18 after being screened and being not accepted for involuntary commitment by [facility], pt was discharged from the [facility] over this weekend, pt brought herself back to [place] looking for help for her psychotic symptoms, pt was noncompliant with meds, said that she hears voices telling her to kill others, please see consultation note at ED 03/12/18 for more detailed information. as per staff pt was agitated again, it seems each morning pt is agitated, paranoid, requires IM Geodon and ativan. he shouldn't is still disorganized, unkempt, impulses unpredictable. during the treatment team meeting patient presented to be malodorous, did not brush her teeth, s/p IM mumbling very hard to understand, thought process, disengaged Patient submitted 48 hour notice yesterday requesting discharge, we'll initiate screening process. pt presented bizarre, but not agitated during the interview. PACT team was contacted, visited pt. patient tolerates medications well, no side effects observed or reported, aims 0 , no EPS. Laboratory Data: Laboratory Tests 03/12/18 03/12/18 03/12/18 01:50 01:50 01:50 WBC 5.7 RBC 3.90 Hgb 12.1 D Hct 35.6 L MCV 91.3 MCH 31.0 MCHC 34.0 RDW 12.8 Plt Count 223 MPV 9.7 Gran % 48.6 L Lymph % (Auto) 39.2 H [place] % (Auto) 8.3 H Eos % (Auto) 3.7 Baso % (Auto) 0.2 Gran # 2.76 Lymph # (Auto) 2.2 [place] # (Auto) 0.5 Eos # (Auto) 0.2 Baso # (Auto) 0.01 Sodium 142 Potassium 3.2 L Chloride 107 Carbon Dioxide 26 Anion Gap 12 BUN 16 Creatinine 0.8 Est GFR ( Amer) > 60 Est GFR (Non-Af Amer) > 60 Random Glucose 105 Fasting Glucose Calcium 8.4 Magnesium 1.9 Total Bilirubin 0.3 AST 21 ALT 26 Alkaline Phosphatase 84 Total Protein 5.9 Albumin 3.2 Globulin 2.7 Albumin/Globulin Ratio 1.2 Triglycerides Cholesterol LDL Cholesterol Direct HDL Cholesterol Free T4 TSH 3rd Generation Urine Color Urine Appearance Urine pH Ur Specific [place] Urine Protein Urine Glucose (UA) Urine Ketones Urine Blood Urine Nitrate Urine Bilirubin Urine Urobilinogen Ur Leukocyte Esterase Urine RBC Urine WBC Ur Epithelial Cells Urine Bacteria Urine HCG, Qual Salicylates < 1 L Urine Opiates Screen Urine Methadone Screen Acetaminophen < 10.0 L Ur Barbiturates Screen Ur Phencyclidine Scrn Ur Amphetamines Screen U Benzodiazepines Scrn U Oth Cocaine Metabols U Cannabinoids Screen Alcohol, Quantitative RPR 03/12/18 03/12/18 03/12/18 01:50 08:20 08:20 WBC RBC Hgb Hct MCV MCH MCHC RDW Plt Count MPV Gran % Lymph % (Auto) [place] % (Auto) Eos % (Auto) Baso % (Auto) Gran # Lymph # (Auto) [place] # (Auto) Eos # (Auto) Baso # (Auto) Sodium Potassium Chloride Carbon Dioxide Anion Gap BUN Creatinine Est GFR ( Amer) Est GFR (Non-Af Amer) Random Glucose Fasting Glucose Calcium Magnesium Total Bilirubin AST ALT Alkaline Phosphatase Total Protein Albumin Globulin Albumin/Globulin Ratio Triglycerides Cholesterol LDL Cholesterol Direct HDL Cholesterol Free T4 TSH 3rd Generation Urine Color Yellow Urine Appearance Clear Urine pH 7.0 Ur Specific [place] 1.015 Urine Protein Trace H Urine Glucose (UA) Negative Urine Ketones Trace H Urine Blood Moderate H Urine Nitrate Negative Urine Bilirubin Negative Urine Urobilinogen 2.0 H Ur Leukocyte Esterase Trace H Urine RBC 15 - 20 Urine WBC 2 - 5 Ur Epithelial Cells 1 - 3 Urine Bacteria Mod Urine HCG, Qual Negative Salicylates Urine Opiates Screen Negative Urine Methadone Screen Negative Acetaminophen Ur Barbiturates Screen Negative Ur Phencyclidine Scrn Negative Ur Amphetamines Screen Negative U Benzodiazepines Scrn Negative U Oth Cocaine Metabols Positive H U Cannabinoids Screen Negative Alcohol, Quantitative < 10 RPR 03/13/18 03/13/18 03/13/18 07:00 07:00 07:00 WBC RBC Hgb Hct MCV MCH MCHC RDW Plt Count MPV Gran % Lymph % (Auto) [place] % (Auto) Eos % (Auto) Baso % (Auto) Gran # Lymph # (Auto) [place] # (Auto) Eos # (Auto) Baso # (Auto) Sodium Potassium Chloride Carbon Dioxide Anion Gap BUN Creatinine Est GFR ( Amer) Est GFR (Non-Af Amer) Random Glucose Fasting Glucose 82 Calcium Magnesium Total Bilirubin AST ALT Alkaline Phosphatase Total Protein Albumin Globulin Albumin/Globulin Ratio Triglycerides 33 L Cholesterol 105 L LDL Cholesterol Direct 56 HDL Cholesterol 36 Free T4 0.57 L TSH 3rd Generation 0.38 L Urine Color Urine Appearance Urine pH Ur Specific [place] Urine Protein Urine Glucose (UA) Urine Ketones Urine Blood Urine Nitrate Urine Bilirubin Urine Urobilinogen Ur Leukocyte Esterase Urine RBC Urine WBC Ur Epithelial Cells Urine Bacteria Urine HCG, Qual Salicylates Urine Opiates Screen Urine Methadone Screen Acetaminophen Ur Barbiturates Screen Ur Phencyclidine Scrn Ur Amphetamines Screen U Benzodiazepines Scrn U Oth Cocaine Metabols U Cannabinoids Screen Alcohol, Quantitative RPR Nonreactive Consultations:: List each consultation separately and include: 1. Reason for request. 2. Findings. 3. Follow-up Consultations: NONE Summary of Hospital Course include:: 1. Description of specific treatment plan utilized for patients during their course of treatmen. 2. Summarize the time- course for resolution of acute symptoms and/or regressed behaviors. 3. Describe issues identified and worked on during hospitalization. 4. Describe medication utilized. 5. Describe medical problems identified and treated. 6. Reassessment of suicide risk Summary of Hospital Course: DR. OWENS'S PROGRESS NOTE ON DAY PRIOR TO DISCHARGE: shortly pt is 37yo with reported h/o schizophrenia, h/o cocaine abuse, pt was brought in to the [facility] for evaluation of psychosis, hearing voices, feeling unsafe, pt was admitted to this facility 03/04/18, it was found that pt has long h/o schizophrenia, history of compliance with medications and follow-up appointment, patient was followed up by [facility] PACT, pt was discharged AMA on 03/08/18 after being screened and being not accepted for involuntary commitment by [facility], pt was discharged from the [facility] over this weekend, pt brought herself back to [place] looking for help for her psychotic symptoms, pt was noncompliant with meds, said that she hears voices telling her to kill others, please see consultation note at ED 03/12/18 for more detailed information. as per staff pt was agitated again, it seems each morning pt is agitated, paranoid, requires IM Geodon and ativan. he shouldn't is still disorganized, unkempt, impulses unpredictable. during the treatment team meeting patient presented to be malodorous, did not brush her teeth, s/p IM mumbling very hard to understand, thought process, disengaged Patient submitted 48 hour notice yesterday requesting discharge, we'll initiate screening process. pt presented bizarre, but not agitated during the interview. PACT team was contacted, visited pt. patient tolerates medications well, no side effects observed or reported, aims 0 , no EPS. DR. DELGADO'S DISCHARGE NOTE ON DAY OF DISCHARGE PLEASE SEE SW NOTE. PATIENT WAS DISCHARGED AMA ON 48 HOUR LETTER AFTER [facility] SCREENER EVALUATED PATIENT AND DETERMINED SHE DID NOT MEET CRITERIA FOR INVOLUNTARY COMMITMENT. I met with patient on day of discharge. She was reluctantly responding to my questioning. Eye contact was poor. She denied any perceptual disturbance including paranoia or AVH. Delusions were not elicited however patient was not entirely engaged with my interview. Staff notes indicate that patient continued to appear paranoid on the unit. She denied any thoughts to harm herself or others during my interview. She denied any discomfort or pain and did not appear to be in distress. She did appear internally preoccupied but she was not responding to internal stimuli. She refuses to retract her 48 hour letter and expresses intent to leave today. I/J is improved since admission - Final Diagnosis (DSM 5) Condition upon Discharge: IMPROVED DSM 5: as per h/o schizophrenia cocaine abuse r/o substance induced psychosis Disposition: AGAINST MEDICAL ADVICE Follow-up Treatment Plan: PLEASE SEE SW NOTE. PATIENT WAS DISCHARGED AMA ON 48 HOUR LETTER AFTER [facility] SCREENER EVALUATED PATIENT AND DETERMINED SHE DID NOT MEET CRITERIA FOR INVOLUNTARY COMMITMENT. - Smoking Cessation Smoking Cessation Medication prescribed: No Reason for not providing: silvia
== END 2018-03-17 11:07 | disposition left against medical advice (07) | DRG 885 ==
LOC: ED 21:01 → ERH 03-12 09:22 → PSYC 03-12 10:23
PROVIDERS: ADMIT Psychiatry & Neurology Psychiatry; ATTEND Psychiatry & Neurology Psychiatry
DX: F20.9 Schizophrenia, unspecified (principal); F14.10 Cocaine abuse, uncomplicated; G47.00 Insomnia, unspecified; Z91.14 Patient's other noncompliance with medication regimen; Z59.0 Homelessness

== ENCOUNTER 2018-04-19 02:47 | Inpatient (IN) | payer MEDICARE, MEDICAID ==
[2018-04-19 02:47] VITALS: BMI 19.8
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
[2018-04-19 04:24] LABS: ACETAMINOPHEN < 10.0 ug/ml (10.0-20.0); SALICYLATE < 1 mg/dL (2.0-20.0)
[2018-04-19 04:25] LABS: ALB/GLOB RATIO 1.4 (1.1-1.8); ALBUMIN 3.9 g/dL (3.0-4.8); ALT/SGPT 26 U/L (7-56); AST/SGOT 21 U/L (14-36); BLOOD UREA NITROGEN 9 mg/dL (7-21); CALCIUM 8.8 mg/dL (8.4-10.5); GFR NON-AFRICAN AMERICAN > 60
[2018-04-19 04:33] LABS: BASO # 0.01 K/mm3 (0.0-2.0); BASO % 0.1 % (0.0-3.0); EOS # 0.1 (0.0-0.7); EOS % 0.9 % (1.5-5.0); GRAN # 4.74 (1.4-6.5); GRAN % 70.1 % (50.0-68.0); HEMOGLOBIN 12.8 g/dL (12.0-16.0); LYMPH # 1.5 (1.2-3.4); LYMPH % 22.8 % (22.0-35.0); MEAN CELL VOLUME 91.4 fl (80.0-105.0); MEAN CORPUSCULAR HEMOGLOBIN 30.5 pg (25.0-35.0); MEAN CORPUSCULAR HGB CONC 33.3 g/dl (31.0-37.0); MEAN PLATELET VOLUME 9.6 fl (7.0-11.0); MONO # 0.4 (0.1-0.6); MONO % 6.1 % (1.0-6.0); RBC 4.2 10^6/uL (3.5-6.1); WHITE BLOOD COUNT 6.8 10^3/ul (4.5-11.0)
[2018-04-19 04:41] LABS: URINE BILIRUBIN NEGATIVE (NEGATIVE); URINE BLOOD MODERATE (NEGATIVE); URINE GLUCOSE (UA) NEGATIVE (NEGATIVE); URINE LEUKOCYTE ESTERASE NEGATIVE Leu/uL (NEGATIVE); URINE PROTEIN 100 mg/dL (<30 mg/dL); URINE UROBILINOGEN 0.2 E.U./dL (<1 E.U./dL)
[2018-04-19 04:42] LABS: URINE APPEARANCE CLEAR (CLEAR); URINE COLOR YELLOW (YELLOW)
[2018-04-19 04:59] LABS: BARBITURATES, UR NEGATIVE (NEGATIVE)
[2018-04-19 05:12] LABS: BENZODIAZEPINES, UR NEGATIVE (NEGATIVE); OPIATES, UR NEGATIVE (NEGATIVE); PHENCYCLIDINE, UR NEGATIVE (NEGATIVE)
[2018-04-19 05:22] LABS: URINE BACTERIA FEW (NEG); URINE WBC 0 - 2 /hpf (0-6)
[2018-04-19 05:52] VITALS: O2SAT 98
[2018-04-19] MEDS ORDERED: Magnesium Hydroxide Susp 30 ml UD PO PRN (06:39)
[2018-04-19] MEDS ORDERED: Alum-Mag Hydrox-Simethicone Susp (30 mL) PO PRN (06:39)
--- NOTE | 2018-04-19 09:09 | RAD ---
Date of service: 04/19/2018 HISTORY: pes COMPARISON: Portable chest 03/04/2018. FINDINGS: LUNGS: No active pulmonary disease. PLEURA: No significant pleural effusion identified, no pneumothorax apparent. CARDIOVASCULAR: Normal. OSSEOUS STRUCTURES: No significant abnormalities. VISUALIZED UPPER ABDOMEN: Normal. OTHER FINDINGS: None. IMPRESSION: No interval acute cardiopulmonary disease appreciated.
--- NOTE | 2018-04-19 09:46 | CARD ---
APPROVED REPORT Date of service: 04/19/2018 EKG Measurement Heart [id number] <Conclusion> Sinus rhythm with 1st degree AV block Otherwise normal ECG
--- NOTE | 2018-04-19 14:55 | PCM.BM ---
<Azeem Del Rosario - Last Filed: 04/19/18 14:52> Treatment Plan Problems - Problems identified on initial assessmt Altered thoughts Date Initiated: 04/19/18 Time Initiated: 07:00 Assessment reference: NA Status: Active Priority: 1 Comment: Disorganized thinking. Auditory Hallucination Date Initiated: 04/19/18 Time Initiated: 07:00 Assessment reference: NA Status: Active Priority: 2 Comment: "the voices are inside of me" Problem 3 Date Initiated: 04/19/18 Time Initiated: 07:00 Assessment reference: NA Status: Active (Drug abuse) Priority: 3 Comment: Unable to cope with stressors Drug abuse Date Initiated: 04/19/18 Time Initiated: 07:00 Assessment reference: NA Status: Active Priority: 4 Aslleep difficulty Date Initiated: 04/19/18 Time Initiated: 07:00 Assessment reference: NA Status: Active Priority: 5 Comment: 3-3 hours at night Treatment assets and liabiliti Patient Assests: cooperative, ADL independent, negotiates basic needs Patient Liabilities: poor support system, substance abuse - Milieu Protocol Maintain good personal hygiene: every other day Encourage regular showers, every other day Assist patient to perform ADL's, every shift Remind patient to perform daily oral care Conduct patient checks and document Observation sheet: Q15 minutes Maintain personal safety: every shift Educate patient to report safety concerns to staff, every shift Monitor environment for contraband/sharps Medication safety: Monitor for expected outcome, potential side effects: every shift, Assess barriers to learning: every shift, Assess readiness for medication education: every shift Discharge/Continuing Care - Education Needs Education Needs: Patient Medication, Patient Diagnosis/Disease Process, Patient Coping Skills, Patient Anger Management skills, Patient Placement options, Patient Community resources, Patient Activities of Daily Living, Patient Nutrition, Patient Uses of Medical Equipment, Patient Health Practices/Safety, Patient Personal Hygiene/Grooming, Patient Aftercare Safety Plan - Discharge Discharge Criteria: Tolerates medication w/o severe side effects, Free of Suicidal thoughts, Free of paranoid thoughts, Normal sleep pattern, Ability to care for self Discharge to:: Home <Duyen Barnett - Last Filed: 04/19/18 15:45> Family Contact Family involvement: Famliy/SO not involved
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
--- NOTE | 2018-04-21 08:57 | PCM.PYCHPN ---
Psychiatric Progress Note - Psychiatric Progress Note Patient seen today, length of contact: 30 minutes Problems Identified/Issues Discussed: PROGRESS NOTE I reviewed recent notes. Dr. Mcgill's reports are still not available in the [employer] system for review. I met with patient at bedside. She appears anxious and oddly related though oriented to month, year and location. Patient is preoccupied and paranoid. She didn't sleep well because the "door wasn't lock ed". She has a lot of fear about people entering the room to harm her. She wants to feel better yet she still will not agree to retract her 48 hour notice. Patient denies any new discomfort, pain or s/e. Patient denies AVH when I inquired however she needed to pause before responding. She appears to be in some mental distress due to her psychotic symptoms. Staff have also noted patient to be disorganized, guarded and withdrawn. She has been visible and attended group yesterday however she is still not interactive or appears related enough to tolerate discharge into the community. Diagnostic Results: Schizophrenia Cocaine abuse Medication Change: Yes (Risperdal increased to 2 mg AMHS ) Medical Record Reviewed: Yes Goal/Treatment Plan - Goal/Treatment Plan Progress Toward Problem(s) and Goals/Treatment Plan: * c/w current tx and plan * Risperdal increased to 2 mg AMHS for continued disorganization and paranoia * No new weekend labs thus far * Vitals reviewed and noted below: Selected Entries 04/19/18 04/19/18 04/19/18 06:30 07:00 16:00 Temperature 98.3 F Pulse Rate 91 H 80 Respiratory 18 Rate Blood Pressure 104/68 97/64 L 04/20/18 15:39 Temperature Pulse Rate 96 H Respiratory Rate Blood Pressure 104/64 * On 04/20/18 patient signed 48 hour notice at [address] Mcgill met with patient and determined that patient should be re-evaluated on Monday. Screeners will likely be requested on this day.
--- NOTE | 2018-04-22 10:21 | PCM.PYCHPN ---
Psychiatric Progress Note - Psychiatric Progress Note Patient seen today, length of contact: 30 minutes Problems Identified/Issues Discussed: PROGRESS NOTE I reviewed recent notes including Dr. Mcgill's reports dated 04/20/18. I met with patient at bedside in the quiet room. Patient requested to sleep in the quiet room because she was scared of her roommate. Patient continues to appear anxious, fearful and paranoid (though oriented to month, year and location). She is preoccupied and indicates that she doesn't feel well enough for discharge. Patient agrees to retract her 48 hour notice and stay for treatment of her symptoms. Patient reports that sleep was restless because of her paranoia. Patient denies AVH when I inquired on Monday however she needed to pause before responding. Today she responds "I don't know". Patient denies any new discomfort, pain or s/e and doesn't appear to be in any physical distress but does appear to be in some mental distress due to her psychotic symptoms. Staff have noted patient to be disorganized, guarded and withdrawn. She generally keeps to herself though did attend group yesterday. She is not interactive or related enough to tolerate discharge into the community. Diagnostic Results: Schizophrenia Cocaine abuse Medication Change: No ( ) Medical Record Reviewed: Yes Goal/Treatment Plan - Goal/Treatment Plan Progress Toward Problem(s) and Goals/Treatment Plan: * c/w current tx and plan * Risperdal increased to 2 mg AMHS for continued disorganization and paranoia * No new weekend labs * Vitals reviewed and noted below: Selected Entries 04/21/18 04/21/18 07:18 16:00 Temperature 97.7 F Pulse Rate 78 102 H Respiratory 18 Rate Blood Pressure 99/65 L 92/55 L * On 04/20/18 patient signed 48 hour notice at 2 pm and retracted it on 04/22/18. Shortly thereafter, patient submitted another 48 hour notice.
[2018-04-22 22:16] VITALS: PULSE 68
[2018-04-23 07:29] VITALS: BP 111/68; RESP 20; TEMP 97.9
--- NOTE | 2018-04-23 08:36 | CON ---
DATE: 04/20/2018 HISTORY OF PRESENT ILLNESS: The patient is a 37-year-old -[place] female with a psychotic disorder. She is presently alert, oriented, somewhat bizarre in interaction, she is not completely organized in her thinking or speech, although she is indicating a concern or desire to go home so that her 87-year-old friend madelyn, who does not have the chin to their apartment, can get it from her. She also expressed concern that she is having her menses and does not have paraphernalia that she needs to treat this. She is also complaining that she does not have the right slippers to wear when she comes out of the shower and she needs to go home for this. The patient can be looked upon it is being paralogical still. She has, however, signed a 48-hour notice. I have reviewed her situation with the staff who is aware of her from previous visitations here and the concerns is that she is approaching her borderline state. Nonetheless, the patient still appears to be somewhat hazy as a historian, lacking in insight, with probably impaired in judgment and who might present some rescue if she were discharged against medical advice at this juncture. Psychotropically, in addition to her p.r.n. medication, she is being treated with Risperdal 1 mg a.m. and at bedtime. Her blood pressure is 104/64, pulse 96, temperature 98.3, respiratory rate 18. Her CBC and differential is uneventful. Her admission urine drug screen was positive for cocaine. Her urine shows 100 urine protein with moderate amount of blood (supporting her narrative of being in the midst of menses). A biochemical profile was within normal limits. Patient's mental status will be evaluated at the time of the expiration of her 48-hour notice at which time it will be determined if she is appropriate for and against medical advice discharged or whether we will recommend a further involuntary hospitalization. Brandyn Mcgill MD/ PhD
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
== END 2018-04-23 15:54 | disposition left against medical advice (07) | DRG 885 ==
LOC: ED 02:47 → ERH 05:07 → PSYC 06:21
PROVIDERS: ADMIT Psychiatry & Neurology Psychiatry; ATTEND Psychiatry & Neurology Addiction Medicine
DX: F29 Unspecified psychosis not due to a substance or known physiological condition (principal); F14.10 Cocaine abuse, uncomplicated; F20.9 Schizophrenia, unspecified; F31.9 Bipolar disorder, unspecified; J45.909 Unspecified asthma, uncomplicated; E07.9 Disorder of thyroid, unspecified; R40.2412 Glasgow coma scale score 13-15, at arrival to emergency department; Z91.410 Personal history of adult physical and sexual abuse; F17.210 Nicotine dependence, cigarettes, uncomplicated; Z91.012 Allergy to eggs; Z91.018 Allergy to other foods

== ENCOUNTER 2018-05-02 05:23 | Inpatient (IN) | payer MEDICARE, MEDICAID ==
[2018-05-02 05:24] VITALS: BMI 19.8
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
[2018-05-02 06:06] LABS: EOS # 0.1 (0.0-0.7); EOS % 0.9 % (1.5-5.0); GRAN # 4.42 (1.4-6.5); HEMOGLOBIN 12.4 g/dL (12.0-16.0); LYMPH % 28.7 % (22.0-35.0); MEAN CELL VOLUME 90.6 fl (80.0-105.0); MEAN CORPUSCULAR HEMOGLOBIN 30.6 pg (25.0-35.0); MEAN CORPUSCULAR HGB CONC 33.8 g/dl (31.0-37.0); MEAN PLATELET VOLUME 9.4 fl (7.0-11.0); MONO # 0.4 (0.1-0.6); MONO % 5.4 % (1.0-6.0); RBC 4.05 10^6/uL (3.5-6.1); RED CELL DISTRIBUTION WIDTH 12.8 % (11.5-14.5); WHITE BLOOD COUNT 6.8 10^3/ul (4.5-11.0)
[2018-05-02 06:38] LABS: SALICYLATE < 1 mg/dL (2.0-20.0)
[2018-05-02 06:40] LABS: ACETAMINOPHEN < 10.0 ug/ml (10.0-20.0)
[2018-05-02 06:43] LABS: ALB/GLOB RATIO 1.3 (1.1-1.8); ALBUMIN 3.7 g/dL (3.0-4.8); ALT/SGPT 20 U/L (7-56); AST/SGOT 22 U/L (14-36); BLOOD UREA NITROGEN 11 mg/dL (7-21); CALCIUM 9.1 mg/dL (8.4-10.5); GFR NON-AFRICAN AMERICAN > 60
[2018-05-02 08:28] LABS: URINE BILIRUBIN NEGATIVE (NEGATIVE); URINE BLOOD LARGE (NEGATIVE); URINE GLUCOSE (UA) NEGATIVE (NEGATIVE); URINE LEUKOCYTE ESTERASE NEGATIVE Leu/uL (NEGATIVE); URINE PROTEIN 100 mg/dL (<30 mg/dL)
[2018-05-02 08:47] LABS: URINE APPEARANCE CLEAR (CLEAR); URINE COLOR YELLOW (YELLOW)
[2018-05-02 08:53] LABS: URINE BACTERIA MANY (NEG); URINE RBC 25 - 30 /hpf (0-2)
[2018-05-02 08:54] LABS: URINE COARSE GRANULAR CAST TRACE /hpf (0-2)
--- NOTE | 2018-05-02 09:04 | RAD ---
Date of service: 05/02/2018 HISTORY: psych clearance COMPARISON: Portable chest 04/19/2018. FINDINGS: LUNGS: No active pulmonary disease. PLEURA: No significant pleural effusion identified, no pneumothorax apparent. CARDIOVASCULAR: Normal. OSSEOUS STRUCTURES: No significant abnormalities. VISUALIZED UPPER ABDOMEN: Normal. OTHER FINDINGS: None. IMPRESSION: No interval acute cardiopulmonary disease appreciated.
[2018-05-02 10:35] LABS: BARBITURATES, UR NEGATIVE (NEGATIVE)
[2018-05-02 10:53] LABS: BENZODIAZEPINES, UR NEGATIVE (NEGATIVE); OPIATES, UR NEGATIVE (NEGATIVE); PHENCYCLIDINE, UR NEGATIVE (NEGATIVE)
--- NOTE | 2018-05-02 13:33 | CARD ---
APPROVED REPORT Date of service: 05/02/2018 EKG Measurement Heart [id number] <Conclusion> Sinus rhythm with 1st degree AV block
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
[2018-05-03 08:19] LABS: GLUCOSE,FASTING 80 mg/dL (65-110); HDL CHOLESTEROL 41 mg/dL (29-60)
[2018-05-03 08:30] LABS: LDL CHOLESTEROL 60 mg/dL (0-129)
[2018-05-03 08:36] LABS: FREE T4 0.64 ng/dL (0.78-2.19)
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
[2018-05-03 18:35] VITALS: BP 105/67; PULSE 86; RESP 17; TEMP 98.1; O2SAT 99
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
== END 2018-05-03 22:35 | DRG 885 ==
LOC: ED 05:23 → ERH 15:02 → PSYC 16:48
PROVIDERS: ADMIT Psychiatry & Neurology Psychiatry; ATTEND Psychiatry & Neurology Psychiatry
PROC: GZ3ZZZZ Medication Management (ICD-10-PCS; principal; 2018-05-03)
DX: F20.9 Schizophrenia, unspecified (principal); F14.10 Cocaine abuse, uncomplicated; J45.909 Unspecified asthma, uncomplicated

== ENCOUNTER 2018-05-13 04:32 | Inpatient (IN) | payer MEDICARE, MEDICAID ==
[2018-05-13 04:33] VITALS: BMI 19.8
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
[2018-05-13 06:15] LABS: HEMOGLOBIN 11.9 g/dL (12.0-16.0); MEAN CELL VOLUME 90.7 fl (80.0-105.0); MEAN CORPUSCULAR HEMOGLOBIN 30.1 pg (25.0-35.0); MEAN CORPUSCULAR HGB CONC 33.1 g/dl (31.0-37.0); MEAN PLATELET VOLUME 9.9 fl (7.0-11.0); RBC 3.96 10^6/uL (3.5-6.1); RED CELL DISTRIBUTION WIDTH 12.7 % (11.5-14.5); WHITE BLOOD COUNT 7.1 10^3/ul (4.5-11.0)
[2018-05-13 06:28] LABS: ALB/GLOB RATIO 1.3 (1.1-1.8); ALBUMIN 3.7 g/dL (3.0-4.8); ALT/SGPT 23 U/L (7-56); AST/SGOT 24 U/L (14-36); BLOOD UREA NITROGEN 13 mg/dL (7-21); GFR NON-AFRICAN AMERICAN > 60
[2018-05-13 06:44] LABS: BARBITURATES, UR NEGATIVE (NEGATIVE)
[2018-05-13 06:56] LABS: BENZODIAZEPINES, UR NEGATIVE (NEGATIVE); OPIATES, UR NEGATIVE (NEGATIVE); PHENCYCLIDINE, UR NEGATIVE (NEGATIVE)
--- NOTE | 2018-05-13 07:04 | ED PDOC ---
Physical Exam Vital Signs Reviewed: Yes Vital Signs Temp Pulse Resp BP Pulse Ox 05/13/18 06:52 83 17 100/62 98 05/13/18 04:46 98.5 F 96 H 17 98/61 L 98 Temperature: Afebrile Blood Pressure: Hypotensive Pulse: Tachycardic Respiratory Rate: Normal Appearance: Positive for: Well-Appearing, Non-Toxic, Comfortable Pain Distress: None Mental Status: Positive for: Alert and Oriented X 3 Medical Decision Making ED Course and Treatment: 05/13/18 07:03: Case endorsed to me by Dr. Vasquez. Pending medical clearance, PES evaluation, reassessment, and disposition. 05/13/18 19:00 case endorsed to night attending, pending PES eval and disposition. - Lab Interpretations Lab Results: 05/13/18 05:05 05/13/18 05:05 Lab Results 05/13/18 05:05: Urine Opiates Screen Negative, Urine Methadone Screen Negative, Ur Barbiturates Screen Negative, Ur Phencyclidine Scrn Negative, Ur Amphetamines Screen Negative, U Benzodiazepines Scrn Negative, U Oth Cocaine Metabols Positive H, U Cannabinoids Screen Negative 05/13/18 05:05: Alcohol, Quantitative < 10 05/13/18 05:05: WBC 7.1, RBC 3.96, Hgb 11.9 L, Hct 35.9 L, MCV 90.7, MCH 30.1, M CHC 33.1, RDW 12.7, Plt Count 263, MPV 9.9 05/13/18 05:05: Sodium 140, Potassium 3.5 L, Chloride 106, Carbon Dioxide 28, Anion Gap 10, BUN 13, Creatinine 0.7, Est GFR ( Amer) > 60, Est GFR (Non- Af Amer) > 60, Random Glucose 88, Calcium 9.0, Total Bilirubin 0.4, AST 24, ALT 23, Alkaline Phosphatase 52, Total Protein 6.4, Albumin 3.7, Globulin 2.8, Albumin/Globulin Ratio 1.3 - RAD Interpretation Radiology Orders: 05/13/18 04:51 CHEST PORTABLE [RAD] Stat - Scribe Statement The provider has reviewed the documentation as recorded by the Scribe Beti Dominguez Provider Scribe Attestation: All medical record entries made by the Scribe were at my direction and personally dictated by me. I have reviewed the chart and agree that the record accurately reflects my personal performance of the history, physical exam, medical decision making, and the department course for this patient. I have also personally directed, reviewed, and agree with the discharge instructions and disposition Disposition/Present on Arrival - Present on Arrival Any Indicators Present on Arrival: No History of DVT/PE: No History of Uncontrolled Diabetes: No Urinary Catheter: No History of Decub. Ulcer: No History Surgical Site Infection Following: None - Disposition Have Diagnosis and Disposition been Completed?: Yes Diagnosis: Schizophrenia, Cocaine abuse Disposition: HOSPITALIZED Disposition Time: 05:16 Patient Problems: Current Active Problems Problem Status Onset Cocaine abuse Chronic Schizophrenia Chronic Condition: STABLE
--- NOTE | 2018-05-13 10:37 | RAD ---
Date of service: 05/13/2018 HISTORY: medical clearance COMPARISON: 05/02/2018 FINDINGS: LUNGS: No active pulmonary disease. PLEURA: No significant pleural effusion identified, no pneumothorax apparent. CARDIOVASCULAR: Normal. OSSEOUS STRUCTURES: No significant abnormalities. VISUALIZED UPPER ABDOMEN: Normal. OTHER FINDINGS: None. IMPRESSION: No active disease.
--- NOTE | 2018-05-13 13:11 | CARD ---
APPROVED REPORT Date of service: 05/13/2018 EKG Measurement Heart [id number] <Conclusion> Normal sinus rhythm Normal ECG
[2018-05-13 19:46] VITALS: O2SAT 99
--- NOTE | 2018-05-13 21:14 | ED PDOC ---
Physical Exam Vital Signs Temp Pulse Resp BP Pulse Ox 05/13/18 17:00 78 18 118/70 99 05/13/18 15:00 78 18 134/71 99 05/13/18 11:00 71 18 115/72 99 05/13/18 07:38 82 18 104/72 96 05/13/18 06:52 83 17 100/62 98 05/13/18 04:46 98.5 F 96 H 17 98/61 L 98 Medical Decision Making ED Course and Treatment: 05/13/18 19:00 Patient was endorsed to me by Dr. Whitaker. Patient is a 37 year old female presenting to the Emergency Department for substance abuse. 05/13/18 21:07 Patient was evaluated by PES and has been accepted into the admission for psych. - Lab Interpretations Lab Results: 05/13/18 05:05 05/13/18 05:05 Lab Results 05/13/18 05:05: Urine Opiates Screen Negative, Urine Methadone Screen Negative, Ur Barbiturates Screen Negative, Ur Phencyclidine Scrn Negative, Ur Amphetamines Screen Negative, U Benzodiazepines Scrn Negative, U Oth Cocaine Metabols Positive H, U Cannabinoids Screen Negative 05/13/18 05:05: Alcohol, Quantitative < 10 05/13/18 05:05: WBC 7.1, RBC 3.96, Hgb 11.9 L, Hct 35.9 L, MCV 90.7, MCH 30.1, MCHC 33.1, RDW 12.7, Plt Count 263, MPV 9.9 05/13/18 05:05: Sodium 140, Potassium 3.5 L, Chloride 106, Carbon Dioxide 28, Anion Gap 10, BUN 13, Creatinine 0.7, Est GFR ( Amer) > 60, Est GFR (Non- Af Amer) > 60, Random Glucose 88, Calcium 9.0, Total Bilirubin 0.4, AST 24, ALT 23, Alkaline Phosphatase 52, Total Protein 6.4, Albumin 3.7, Globulin 2.8, Albumin/Globulin Ratio 1.3 - RAD Interpretation Radiology Orders: 05/13/18 04:51 CHEST PORTABLE [RAD] Stat Disposition/Present on Arrival - Present on Arrival Any Indicators Present on Arrival: No History of DVT/PE: No History of Uncontrolled Diabetes: No Urinary Catheter: No History of Decub. Ulcer: No History Surgical Site Infection Following: None - Disposition Have Diagnosis and Disposition been Completed?: Yes Diagnosis: Schizophrenia, Cocaine abuse Disposition: HOSPITALIZED Disposition Time: 21:10 Patient Plan: Admission Patient Problems: Current Active Problems Problem Status Onset Cocaine abuse Chronic Schizophrenia Chronic Condition: STABLE
[2018-05-13] MEDS ORDERED: Magnesium Hydroxide Susp 30 ml UD PO PRN (22:19)
[2018-05-13] MEDS ORDERED: Alum-Mag Hydrox-Simethicone Susp (30 mL) PO PRN (22:19)
[2018-05-13] MEDS ORDERED: DiphenhydrAMINE 50 mg/ml Inj IM PRN (22:26)
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
[2018-05-14] MEDS ORDERED: Potassium Chloride 20 mEq ER Tab PO STA (09:17)
[2018-05-14] MEDS ORDERED: Albuterol HFA 90 mcg/actuation (8 g) IH PRN (12:11)
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
[2018-05-16] MEDS: Divalproex 500 mg DR(BID formulation) PO SCH (18:33)
[2018-05-17] MEDS: Divalproex 500 mg DR(BID formulation) PO SCH ×2 (09:18→16:51)
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
[2018-05-18] MEDS: Divalproex 500 mg DR(BID formulation) PO SCH ×2 (10:09→17:06)
--- NOTE | 2018-05-18 14:57 | PCM.PYCHPN ---
Psychiatric Progress Note - Psychiatric Progress Note Patient seen today, length of contact: 30 minutes Patient Chief Complaint: "I need my chicken, staff told me that they order it, but I am not sure, can you check it?...." Problems Identified/Issues Discussed: Suicide/ homicide prevention, past psychiatric h/o, current psychiatric symptoms, medical problems, risk/benefits and alternatives of medications, medications compliance, coping strategies, substance abuse h/o, relapse prevention, importance of follow up with psychiatrist and therapist, discharge plan. Medical Problems: Asthma, pt said that she broke her ankle last winter, very think build. Diagnostic Results: 05/13/18 05:05 05/13/18 05:05 Lab Results 05/13/18 05:05: Urine Opiates Screen Negative, Urine Methadone Screen Negative, Ur Barbiturates Screen Negative, Ur Phencyclidine Scrn Negative, Ur Amphetamines Screen Negative, U Benzodiazepines Scrn Negative, U Oth Cocaine Metabols Positive H, U Cannabinoids Screen Negative 05/13/18 05:05: Alcohol, Quantitative < 10 05/13/18 05:05: WBC 7.1, RBC 3.96, Hgb 11.9 L, Hct 35.9 L, MCV 90.7, MCH 30.1, MCHC 33.1, RDW 12.7, Plt Count 263, MPV 9.9 05/13/18 05:05: Sodium 140, Potassium 3.5 L, Chloride 106, Carbon Dioxide 28, Anion Gap 10, BUN 13, Creatinine 0.7, Est GFR ( Amer) > 60, Est GFR (Non- Af Amer) > 60, Random Glucose 88, Calcium 9.0, Total Bilirubin 0.4, AST 24, ALT 23, Alkaline Phosphatase 52, Total Protein 6.4, Albumin 3.7, Globulin 2.8, Albumin/Globulin Ratio 1.3 Vital Signs Temp Pulse Resp BP Pulse Ox 05/15/18 07:00 98.1 F 70 18 88/59 L 05/14/18 16:00 80 83/54 L 05/14/18 07:00 97.6 F 65 18 99/64 L 05/14/18 03:53 717 H 05/13/18 17:00 78 18 118/70 99 05/13/18 15:00 78 18 134/71 99 05/13/18 11:00 71 18 115/72 99 05/13/18 07:38 82 18 104/72 96 05/13/18 06:52 83 17 100/62 98 05/13/18 04:46 98.5 F 96 H 17 98/61 L 98 DSM 5 Symptoms Update: shortly pt is 37yo with reported h/o schizophrenia, h/o cocaine abuse, currently under care of [facility], h/o noncompliance with medications and follow up appts, pt has mmultiple psychiatric admissions, he shouldn't has tendency of signing herself out of the hospital AMA, pt was d/c from the [facility] on May 06 AMA after screening. this time pt brought herself to the hospital complaining that she hears voices and relapse on Cocaine. Pt presented to be disorganized, disheveled, pt required further evaluation and stabilization. patient was seen next to the nursing station. pt presented to be more organized, but still psychotic, pt was fixated on the lunch she ordered or not ordered, speech was disorganized, mumbling something incoherently about her food order, pt also observed to be internally preoccupied and responding to internal stimuli. as per staff no agitation or aggression but patient is disorganized. so far patient tolerates medications well, no side effects observed or reported, aims 0, no EPS. patient was on injectable form of the medications, we'll consider to resume Impression: Schizophrenia as per history Polysubstance abuse and dependence Medication Change: No (adjusted yesterday) Medical Record Reviewed: Yes Consults ordered or reviewed: medical team evaluated patient, please see consultation note for more detailed information Mental Status Examination - Cognitive Function Orientation: Person, Place Memory: Impaired Attention: Poor Concentration: Poor Association: Loose Fund of Knowledge: Poor - Mood Mood: Depressed - Affect Affect: Constricted - Speech Speech: Slurred - Formal Thought Process Formal Thought Process: Hallucinations, Delusions, Paranoia, Loosening of associations, Circumstantial - Suicidal Ideation Suicidal Ideation: No - Homicidal Ideation Homicidal Ideation: No Goal/Treatment Plan - Goal/Treatment Plan Need for Continued Stay: Remain at risks for inpatient hospitalization, Severe depression anxiety, Discharge may exacerbated symptoms, Failed transitioning, S evere functional impairment Progress Toward Problem(s) and Goals/Treatment Plan: Milieu/structure/supportive therapy Medical consult for asthma appreciated Med management risperdal 5 mg a day Depakote was resumed for mood stabilization PRN meds [facility] involved, want to have a meeting Family involvement Follow up on labs Will monitor closely Pt was educated about risk/benefits and alternatives of medications, coping strategies (safety plan, suicide prevention), relapse prevention, importance of follow up with psychiatrist and therapist, stay away from drugs/alcohol/smoking nutritional consult might be beneficial Estimated Date of D/C: 05/25/18
[2018-05-19] MEDS: Divalproex 500 mg DR(BID formulation) PO SCH ×2 (09:30→16:44)
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
[2018-05-20] MEDS: Divalproex 500 mg DR(BID formulation) PO SCH ×2 (09:48→16:28)
--- NOTE | 2018-05-20 09:58 | PCM.PYCHPN ---
Psychiatric Progress Note - Psychiatric Progress Note Patient seen today, length of contact: 30 minutes Patient Chief Complaint: "this is not what I order...." Problems Identified/Issues Discussed: Suicide/ homicide prevention, past psychiatric h/o, current psychiatric sym ptoms, medical problems, risk/benefits and alternatives of medications, medications compliance, coping strategies, substance abuse h/o, relapse prevention, importance of follow up with psychiatrist and therapist, discharge plan. Medical Problems: Asthma, pt said that she broke her ankle last winter, very think build. Diagnostic Results: 05/13/18 05:05 05/13/18 05:05 Lab Results 05/13/18 05:05: Urine Opiates Screen Negative, Urine Methadone Screen Negative, Ur Barbiturates Screen Negative, Ur Phencyclidine Scrn Negative, Ur Amphetamines Screen Negative, U Benzodiazepines Scrn Negative, U Oth Cocaine Metabols Positive H, U Cannabinoids Screen Negative 05/13/18 05:05: Alcohol, Quantitative < 10 05/13/18 05:05: WBC 7.1, RBC 3.96, Hgb 11.9 L, Hct 35.9 L, MCV 90.7, MCH 30.1, MCHC 33.1, RDW 12.7, Plt Count 263, MPV 9.9 05/13/18 05:05: Sodium 140, Potassium 3.5 L, Chloride 106, Carbon Dioxide 28, Anion Gap 10, BUN 13, Creatinine 0.7, Est GFR ( Amer) > 60, Est GFR (Non- Af Amer) > 60, Random Glucose 88, Calcium 9.0, Total Bilirubin 0.4, AST 24, ALT 23, Alkaline Phosphatase 52, Total Protein 6.4, Albumin 3.7, Globulin 2.8, Albumin/Globulin Ratio 1.3 Vital Signs Temp Pulse Resp BP Pulse Ox 05/15/18 07:00 98.1 F 70 18 88/59 L 05/14/18 16:00 80 83/54 L 05/14/18 07:00 97.6 F 65 18 99/64 L 05/14/18 03:53 717 H 05/13/18 17:00 78 18 118/70 99 05/13/18 15:00 78 18 134/71 99 05/13/18 11:00 71 18 115/72 99 05/13/18 07:38 82 18 104/72 96 10/07/18 06:52 83 17 100/62 98 05/13/18 04:46 98.5 F 96 H 17 98/61 L 98 DSM 5 Symptoms Update: shortly pt is 37yo with reported h/o schizophrenia, h/o cocaine abuse, [facility], h/o noncompliance with medications and follow up appts, pt has mmultiple psychiatric admissions, he shouldn't has tendency of signing herself out of the hospital AMA, pt was d/c from the on May 06 AMA after screening. this time pt brought herself to the hospital complaining that she hears voices and relapse on Cocaine. Pt presented to be disorganized, disheveled, pt required further evaluation and stabilization. patient was seen in her room, pt presented to be sleepy and not interested to have interview, later on pt was seen next to the nursing station. pt presented to be disheveled, pt was trying to put the food tray on the window at the nursing station, pt needs constant redirection, pt eventually threw the potato tray on the floor, then became defensive, agitated, cursing about the fact that this is not what she ordered for breakfast, but obviously pt is forgetful, disorganized, pt then became tearful, emotionally labile. as per staff pt is not taking shower, staying in bed all day long, when up initiate arguments and needs constant redirection. Laughing to herself, was responding to internal stimuli, talking to herself. pt requires further hospitalization. so far patient tolerates medications well, no side effects observed or reported, aims 0, no EPS. Impression: Schizophrenia as per history Polysubstance abuse and dependence Medication Change: Yes (Risperdal increased) Medical Record Reviewed: Yes Mental Status Examination - Cognitive Function Orientation: Person, Place Memory: Impaired Attention: Poor Concentration: Poor Association: Loose Fund of Knowledge: Poor - Mood Mood: Depressed - Affect Affect: Constricted - Speech Speech: Slurred - Formal Thought Process Formal Thought Process: Hallucinations, Delusions, Paranoia, Loosening of associations, Circumstantial - Suicidal Ideation Suicidal Ideation: No - Homicidal Ideation Homicidal Ideation: No Goal/Treatment Plan - Goal/Treatment Plan Need for Continued Stay: Remain at risks for inpatient hospitalization, Severe depression anxiety, Discharge may exacerbated symptoms, Failed transitioning, Severe functional impairment Progress Toward Problem(s) and Goals/Treatment Plan: Milieu/structure/supportive therapy Medical consult for asthma appreciated Med management risperdal 6 mg a day Depakote was resumed for mood stabilization PRN meds [facility] PA[facility] involved, want to have a meeting Family involvement Follow up on labs Will monitor closely Pt was educated about risk/benefits and alternatives of medications, coping strategies (safety plan, suicide prevention), relapse prevention, importance of follow up with psychiatrist and therapist, stay away from drugs/alcohol/smoking nutritional consult might be beneficial Estimated Date of D/C: 05/25/18
[2018-05-21] MEDS: Divalproex 500 mg DR(BID formulation) PO SCH ×2 (08:55→17:01)
--- NOTE | 2018-05-21 15:19 | PCM.PYCHPN ---
Psychiatric Progress Note - Psychiatric Progress Note Patient seen today, length of contact: 30 minutes Patient Chief Complaint: "I am still alive, so it means people are not trying to poison me...." Problems Identified/Issues Discussed: Suicide/ homicide prevention, past psychiatric h/o, current psychiatric symptoms, medical problems, risk/benefits and alternatives of medications, medications compliance, coping strategies, substance abuse h/o, relapse prevention, importance of follow up with psychiatrist and therapist, discharge plan. Medical Problems: Asthma, pt said that she broke her ankle last winter, very thin build. Diagnostic Results: 05/13/18 05:05 05/13/18 05:05 Lab Results 05/13/18 05:05: Urine Opiates Screen Negative, Urine Methadone Screen Negative, Ur Barbiturates Screen Negative, Ur Phencyclidine Scrn Negative, Ur Amphetamines Screen Negative, U Benzodiazepines Scrn Negative, U Oth Cocaine Metabols Positive H, U Cannabinoids Screen Negative 05/13/18 05:05: Alcohol, Quantitative < 10 05/13/18 05:05: WBC 7.1, RBC 3.96, Hgb 11.9 L, Hct 35.9 L, MCV 90.7, MCH 30.1, MCHC 33.1, RDW 12.7, Plt Count 263, MPV 9.9 05/13/18 05:05: Sodium 140, Potassium 3.5 L, Chloride 106, Carbon Dioxide 28, Anion Gap 10, BUN 13, Creatinine 0.7, Est GFR ( Amer) > 60, Est GFR (Non- Af Amer) > 60, Random Glucose 88, Calcium 9.0, Total Bilirubin 0.4, AST 24, ALT 23, Alkaline Phosphatase 52, Total Protein 6.4, Albumin 3.7, Globulin 2.8, Albumin/Globulin Ratio 1.3 Vital Signs Temp Pulse Resp BP Pulse Ox 05/15/18 07:00 98.1 F 70 18 88/59 L 05/14/18 16:00 80 83/54 L 05/14/18 07:00 97.6 F 65 18 99/64 L 05/14/18 03:53 717 H 05/13/18 17:00 78 18 118/70 99 05/13/18 15:00 78 18 134/71 99 05/13/18 11:00 71 18 115/72 99 05/13/18 07:38 82 18 104/72 96 05/13/18 06:52 83 17 100/62 98 05/13/18 04:46 98.5 F 96 H 17 98/61 L 98 Temp Pulse Resp BP Pulse Ox 97.8 F 90 20 91/60 L 99 05/18/18 07:09 05/20/18 16:22 05/18/18 07:09 05/20/18 16:22 05/13/18 17:00 DSM 5 Symptoms Update: shortly pt is 37yo with reported h/o schizophrenia, h/o cocaine abuse, [facility], h/o noncompliance with medications and follow up appts, pt has mmultiple psychiatric admissions, he shouldn't has tendency of signing herself out of the hospital AMA, pt was d/c from the [facility] on May 06 AMA after screening. this time pt brought herself to the hospital complaining that she hears voices and relapse on Cocaine. Pt presented to be disorganized, disheveled, pt required further evaluation and stabilization. patient was seen in her room, pt presented to be sleepy and not interested to have interview as usual when this typewriter operator automatic asked pt if she still feels that RNs trying to poison her (no evidence for that), pt said "I am still alive, it means that nobody is poisoning me". pt refused to go to the treatment team meeting. as per staff pt is not taking shower, staying in bed all day long, when up initiate arguments and needs constant redirection. Laughing to herself, was responding to internal stimuli, talking to herself. pt requires further hospitalization. so far patient tolerates medications well, no side effects observed or reported, aims 0, no EPS. Impression: Schizophrenia as per history Polysubstance abuse and dependence Medication Change: Yes (Risperdal increased) Medical Record Reviewed: Yes Consults ordered or reviewed: medical team evaluated patient, please see consultation note for more detailed information Mental Status Examination - Cognitive Function Orientation: Person, Place Memory: Impaired Attention: Poor (some improvement) Concentration: Poor (some improvement) Association: Loose (some improvement) Fund of Knowledge: Poor - Mood Mood: Depressed - Affect Affect: Constricted (but at times pt smiling) - Speech Speech: Slurred - Formal Thought Process Formal Thought Process: Hallucinations, Delusions, Paranoia, Loosening of associations, Circumstantial - Suicidal Ideation Suicidal Ideation: No - Homicidal Ideation Homicidal Ideation: No Goal/Treatment Plan - Goal/Treatment Plan Need for Continued Stay: Remain at risks for inpatient hospitalization, Severe depression anxiety, Discharge may exacerbated symptoms, Failed transitioning, Severe functional impairment Progress Toward Problem(s) and Goals/Treatment Plan: Milieu/structure/supportive therapy Medical consult for asthma appreciated Med management risperdal 6 mg a day Depakote was resumed for mood stabilization depakote level 05/22/18 PRN meds [facility] PACT involved, want to have a meeting Family involvement Follow up on labs Will monitor closely Pt was educated about risk/benefits and alternatives of medications, coping strategies (safety plan, suicide prevention), relapse prevention, importance of follow up with psychiatrist and therapist, stay away from drugs/alcohol/smoking nutritional consult might be beneficial Estimated Date of D/C: 05/25/18
--- NOTE | 2018-05-21 16:20 | PCM.BM ---
Treatment Plan Problems - Problems identified on initial assessmt Auditory Hallucinations Date Initiated: 05/13/18 Time Initiated: 22:45 Assessment reference: NA Subustance abuse Date Initiated: 05/13/18 Time Initiated: 22:50 Assessment reference: NA Status: Monitor Treatment assets and liabiliti Patient Assests: cooperative, ADL independent, negotiates basic needs Patient Liabilities: poor support system, relationship conflicts, substance abuse - Milieu Protocol Maintain good personal hygiene: daily Encourage regular showers, daily Remind patient to perform daily oral care, daily Assist patient to perform ADL's Maintain personal safety: daily Educate patient to report safety concerns to staff, daily Monitor environment for contraband/sharps Medication safety: Monitor for expected outcome, potential side effects: daily, Assess barriers to learning: daily, Assess readiness for medication education: daily Milieu Narrative: Milieu/structure/supportive therapy Medical consult for asthma appreciated Med management risperdal 6 mg a day Depakote was resumed for mood stabilization depakote level 05/22/18 PRN meds [facility] PACT involved, want to have a meeting Family involvement Follow up on labs Will monitor closely Pt was educated about risk/benefits and alternatives of medications, coping strategies (safety plan, suicide prevention), relapse prevention, importance of follow up with psychiatrist and therapist, stay away from drugs/alcohol/smoking nutritional consult might be beneficial Family Contact Family involvement: Amadou/SO not involved - Outside Agency [facility] Care involvment: Not involved Agency contact name: [facility] - Goals for Treatment Patient's family/SO goals for treatment: I need placement Discharge/Continuing Care - Education Needs Education Needs: Patient Medication, Patient Diagnosis/Disease Process, Patient Coping Skills, Patient Anger Management skills - Discharge Discharge Criteria: Free of agitation, Normal sleep pattern, Ability to care for self - Treatment Team Participation Patient/Family/SO Statement: Milieu/structure/supportive therapy Medical consult for asthma appreciated Med management risperdal 6 mg a day Depakote was resumed for mood stabilization depakote level 05/22/18 PRN meds [facility] PACT involved, want to have a meeting Family involvement Follow up on labs Will monitor closely Pt was educated about risk/benefits and alternatives of medications, coping strategies (safety plan, suicide prevention), relapse prevention, importance of follow up with psychiatrist and therapist, stay away from drugs/alcohol/smoking nutritional consult might be beneficial Treatment Plan Review - Problem Auditory Hallucinations Time Initiated: 22:45 Subustance abuse Time Initiated: 22:50
[2018-05-22] MEDS: Divalproex 500 mg DR(BID formulation) PO SCH ×2 (09:45→17:25)
--- NOTE | 2018-05-22 10:21 | PCM.PYCHPN ---
Psychiatric Progress Note - Psychiatric Progress Note Patient seen today, length of contact: 30 minutes Problems Identified/Issues Discussed: I reviewed assessment and recent notes. I interviewed patient at bedside. She is superficially cooperative and appears tired. Denies any new pain or side effects. Sleep was restless last night. Responses are brief but generally relevant with my questioning. She is oriented x3. Affect is flat as she tell me that she is "feeling okay, maybe claustrophobic". She endorses hallucinations "a little bit, shadows". She generally doesn't want to elaborate. Staff have noticed patient talking to herself on the unit. She has been withdrawn, robles and paranoid. Generally keeps to herself and remains unpredictable. Diagnostic Results: Schizophrenia as per history Polysubstance abuse and dependence Medication Change: No ( ) Medical Record Reviewed: Yes Mental Status Examination - Cognitive Function Orientation: Person, Place Memory: Impaired Attention: Poor (some improvement) Concentration: Poor (some improvement) Association: Loose (some improvement) Fund of Knowledge: Poor - Mood Mood: Depressed - Affect Affect: Constricted (but at times pt smiling) - Speech Speech: Slurred - Formal Thought Process Formal Thought Process: Hallucinations, Delusions, Paranoia, Loosening of associations, Circumstantial - Suicidal Ideation Suicidal Ideation: No - Homicidal Ideation Homicidal Ideation: No Goal/Treatment Plan - Goal/Treatment Plan Need for Continued Stay: Remain at risks for inpatient hospitalization, Severe depression anxiety, Discharge may exacerbated symptoms, Failed transitioning, Severe functional impairment Progress Toward Problem(s) and Goals/Treatment Plan: * c/w current tx and plan * Patient was reminded to ask for ambien as needed for insomnia. * New lab results for [facility] noted below: 05/22/18 09:30 Valproic Acid 38 L * Vitals reviewed and noted below: Selected Entries 05/17/18 05/21/18 09:25 15:37 Temperature 97.5 F L Pulse Rate 82 92 H Respiratory 20 Rate Blood Pressure 98/71 L 96/57 L Estimated Date of D/C: 05/25/18
[2018-05-23] MEDS: Divalproex 500 mg DR(BID formulation) PO SCH ×2 (08:44→17:09)
--- NOTE | 2018-05-24 03:51 | PN ---
DATE: 05/23/2018 IDENTIFYING INFORMATION: The patient is a 37-year-old female known to me. She carries with her a diagnosis of polysubstance abuse and dependence and schizophrenia. I had interacted with her on several prior hospitalizations. She is alert and oriented to three spheres. Her affect is flat. She complains of seeing "shadows". She is succinct and not expansive with her descriptions or interaction. She has been observed to talk to herself on the unit at times and is considered to be paranoid. Nursing feels however that she is becoming more appropriate and compliant, although she is refusing to take Depakote. She is denying auditory or visual hallucinations. MEDICATIONS: Psychotropically, she is being maintained on Ativan p.r.n., Ambien p.r.n., Benadryl p.r.n., Cogentin 0.5 mg b.i.d. and at bedtime, Depakote 500 mg b.i.d. (which she is refusing to take), Risperdal 2 mg at bedtime and 2 mg b.i.d. VITAL SIGNS: Not taken today. LABORATORY DATA: She had tested positive for cocaine on admission. Her valproic acid on 05/22/2018 was 38. PLAN: We will continue to monitor. Brandyn Mcgill MD/ PhD cc: Ivy Millan MD
--- NOTE | 2018-05-24 09:13 | PCM.PYCHPN ---
Psychiatric Progress Note - Psychiatric Progress Note Patient seen today, length of contact: 30 minutes Patient Chief Complaint: "I saw shadows yesterday" Problems Identified/Issues Discussed: Suicide/ homicide prevention, past psychiatric h/o, current psychiatric symptoms , medical problems, risk/benefits and alternatives of medications, medications compliance, coping strategies, substance abuse h/o, relapse prevention, importance of follow up with psychiatrist and therapist, discharge plan. Medical Problems: Asthma, pt said that she broke her ankle last winter, very thin build. Diagnostic Results: 05/13/18 05:05 05/13/18 05:05 Lab Results 05/13/18 05:05: Urine Opiates Screen Negative, Urine Methadone Screen Negative, Ur Barbiturates Screen Negative, Ur Phencyclidine Scrn Negative, Ur Amphetamines Screen Negative, U Benzodiazepines Scrn Negative, U Oth Cocaine Metabols Positive H, U Cannabinoids Screen Negative 05/13/18 05:05: Alcohol, Quantitative < 10 05/13/18 05:05: WBC 7.1, RBC 3.96, Hgb 11.9 L, Hct 35.9 L, MCV 90.7, MCH 30.1, MCHC 33.1, RDW 12.7, Plt Count 263, MPV 9.9 05/13/18 05:05: Sodium 140, Potassium 3.5 L, Chloride 106, Carbon Dioxide 28, Anion Gap 10, BUN 13, Creatinine 0.7, Est GFR ( Amer) > 60, Est GFR (Non- Af Amer) > 60, Random Glucose 88, Calcium 9.0, Total Bilirubin 0.4, AST 24, ALT 23, Alkaline Phosphatase 52, Total Protein 6.4, Albumin 3.7, Globulin 2.8, Albumin/Globulin Ratio 1.3 Vital Signs Temp Pulse Resp BP Pulse Ox 05/15/18 07:00 98.1 F 70 18 88/59 L 05/14/18 16:00 80 83/54 L 05/14/18 07:00 97.6 F 65 18 99/64 L 05/14/18 03:53 717 H 05/13/18 17:00 78 18 118/70 99 05/13/18 15:00 78 18 134/71 99 05/13/18 11:00 71 18 115/72 99 05/13/18 07:38 82 18 104/72 96 05/13/18 06:52 83 17 100/62 98 05/13/18 04:46 98.5 F 96 H 17 98/61 L 98 Temp Pulse Resp BP Pulse Ox 97.8 F 90 20 91/60 L 99 05/18/18 07:09 05/20/18 16:22 05/18/18 07:09 05/20/18 16:22 05/13/18 17:00 Temp Pulse Resp BP Pulse Ox 97.8 F 90 20 97/65 L 99 05/18/18 07:09 05/22/18 16:22 05/18/18 07:09 05/22/18 16:22 05/13/18 17:00 DSM 5 Symptoms Update: shortly pt is 37yo with reported h/o schizophrenia, h/o cocaine abuse, currently [facility], h/o noncompliance with medications and follow up appts, pt has mmultiple psychiatric admissions, he shouldn't has tendency of signing herself out of the hospital AMA, pt was d/c from the [facility] on May 06 AMA after screening. this time pt brought herself to the hospital complaining that she hears voices and relapse on Cocaine. Pt presented to be disorganized, disheveled, pt required further evaluation and stabilization. patient was seen at the dinning area, pt reported that she feels "okay I guess", pt reported that she saw shadows yesterday, pt reported to have good sleep and appetite. as per staff pt is not taking shower, staying in bed all day long, when up initiate arguments and needs constant redirection. Laughing to herself, was responding to internal stimuli, talking to herself. pt requires further hospitalization. so far patient tolerates medications well, no side effects observed or reported, aims 0, no EPS. Impression: Schizophrenia as per history Polysubstance abuse and dependence Medication Change: No ( ) Medical Record Reviewed: Yes Mental Status Examination - Cognitive Function Orientation: Person, Place Memory: Impaired Attention: Poor (some improvement) Concentration: Poor (some improvement) Association: Loose (some improvement) Fund of Knowledge: Poor - Mood Mood: Depressed - Affect Affect: Constricted (but at times pt smiling) - Speech Speech: Slurred - Formal Thought Process Formal Thought Process: Hallucinations ("I saw shadows"), Delusions, Paranoia (pt was feeing that staff was poisoning her), Loosening of associations, Circumstantial - Suicidal Ideation Suicidal Ideation: No - Homicidal Ideation Homicidal Ideation: No Goal/Treatment Plan - Goal/Treatment Plan Need for Continued Stay: Remain at risks for inpatient hospitalization, Severe depression anxiety, Discharge may exacerbated symptoms, Failed transitioning, Severe functional impairment Progress Toward Problem(s) and Goals/Treatment Plan: Milieu/structure/supportive therapy Medical consult for asthma appreciated Med management risperdal 6 mg a day Depakote was resumed for mood stabilization depakote level 05/22/18 38 PRN meds [facility] PACT involved, want to have a meeting Family involvement Follow up on labs Will monitor closely Pt was educated about risk/benefits and alternatives of medications, coping strategies (safety plan, suicide prevention), relapse prevention, importance of follow up with psychiatrist and therapist, stay away from drugs/alcohol/smoking nutritional consult might be beneficial Estimated Date of D/C: 05/28/18
[2018-05-24] MEDS: Divalproex 500 mg DR(BID formulation) PO SCH ×2 (10:12→17:14)
[2018-05-25] MEDS: Divalproex 500 mg DR(BID formulation) PO SCH ×2 (09:58→16:17)
--- NOTE | 2018-05-25 16:08 | PCM.PYCHPN ---
Psychiatric Progress Note - Psychiatric Progress Note Patient seen today, length of contact: 30 minutes Patient Chief Complaint: "I and willing to take injection" Problems Identified/Issues Discussed: Suicide/ homicide prevention, past psychiatric h/o, current psychiatric symptoms, medical problems, risk/benefits and alternatives of medications, medications compliance, coping strategies, substance abuse h/o, relapse prevention, importance of follow up with psychiatrist and therapist, discharge plan. Medical Problems: Asthma, pt said that she broke her ankle last winter, very thin build. Diagnostic Results: 05/13/18 05:05 05/13/18 05:05 Lab Results 05/13/18 05:05: Urine Opiates Screen Negative, Urine Methadone Screen Negative, Ur Barbiturates Screen Negative, Ur Phencyclidine Scrn Negative, Ur Amphetamines Screen Negative, U Benzodiazepines Scrn Negative, U Oth Cocaine Metabols Positive H, U Cannabinoids Screen Negative 05/13/18 05:05: Alcohol, Quantitative < 10 05/13/18 05:05: WBC 7.1, RBC 3.96, Hgb 11.9 L, Hct 35.9 L, MCV 90.7, MCH 30.1, MCHC 33.1, RDW 12.7, Plt Count 263, MPV 9.9 05/13/18 05:05: Sodium 140, Potassium 3.5 L, Chloride 106, Carbon Dioxide 28, Anion Gap 10, BUN 13, Creatinine 0.7, Est GFR ( Amer) > 60, Est GFR (Non- Af Amer) > 60, Random Glucose 88, Calcium 9.0, Total Bilirubin 0.4, AST 24, ALT 23, Alkaline Phosphatase 52, Total Protein 6.4, Albumin 3.7, Globulin 2.8, Albumin/Globulin Ratio 1.3 Vital Signs Temp Pulse Resp BP Pulse Ox 05/15/18 07:00 98.1 F 70 18 88/59 L 05/14/18 16:00 80 83/54 L 05/14/18 07:00 97.6 F 65 18 99/64 L 05/14/18 03:53 717 H 05/13/18 17:00 78 18 118/70 99 05/13/18 15:00 78 18 134/71 99 05/13/18 11:00 71 18 115/72 99 05/13/18 07:38 82 18 104/72 96 05/13/18 06:52 83 17 100/62 98 05/13/18 04:46 98.5 F 96 H 17 98/61 L 98 Temp Pulse Resp BP Pulse Ox 97.8 F 90 20 91/60 L 99 05/18/18 07:09 05/20/18 16:22 05/18/18 07:09 05/20/18 16:22 05/13/18 17:00 Temp Pulse Resp BP Pulse Ox 97.8 F 90 20 97/65 L 99 05/18/18 07:09 05/22/18 16:22 05/18/18 07:09 05/22/18 16:22 05/13/18 17:00 DSM 5 Symptoms Update: shortly pt is 37yo with reported h/o schizophrenia, h/o cocaine abuse, currently under care of [facility], h/o noncompliance with medications and follow up appts, pt has mmultiple psychiatric admissions, he shouldn't has tendency of signing herself out of the hospital AMA, pt was d/c from the [facility] on May 06 AMA after screening. this time pt brought herself to the hospital complaining that she hears voices and relapse on Cocaine. Pt presented to be disorganized, disheveled, pt required further evaluation and stabilization. 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 pt reported that she feels "okay I guess", pt reported that she still has some issues with her food, pt is fixated on food. as per staff patient is more pleasant, manageable in the unit. pt requires further hospitalization. so far patient tolerates medications well, no side effects observed or reported, aims 0, no EPS. Impression: Schizophrenia as per history Polysubstance abuse and dependence Medication Change: No ( ) Medical Record Reviewed: Yes Consults ordered or reviewed: medical team evaluated patient, please see consultation note for more detailed information Mental Status Examination - Cognitive Function Orientation: Person, Place Memory: Impaired Attention: Poor (some improvement) Concentration: Poor (some improvement) Association: Loose (some improvement) Fund of Knowledge: Poor - Mood Mood: Depressed - Affect Affect: Constricted (but at times pt smiling) - Speech Speech: Slurred - Formal Thought Process Formal Thought Process: Hallucinations ("I saw shadows"), Delusions, Paranoia (denied today), Loosening of associations, Circumstantial - Suicidal Ideation Suicidal Ideation: No - Homicidal Ideation Homicidal Ideation: No Goal/Treatment Plan - Goal/Treatment Plan Need for Continued Stay: Remain at risks for inpatient hospitalization, Severe depression anxiety, Discharge may exacerbated symptoms, Failed transitioning, Severe functional impairment Progress Toward Problem(s) and Goals/Treatment Plan: Milieu/structure/supportive therapy Medical consult for asthma appreciated Med management risperdal 6 mg a day Depakote was resumed for mood stabilization depakote level 05/22/18 38 PRN meds [facility] PACT involved, Invega trinza will be brought by them 819mg, injection should be given 05/26/18, pt agreed Family involvement Follow up on labs Will monitor closely Pt was educated about risk/benefits and alternatives of medications, coping strategies (safety plan, suicide prevention), relapse prevention, importance of follow up with psychiatrist and therapist, stay away from drugs/alcohol/smoking nutritional consult might be beneficial Estimated Date of D/C: 05/28/18
--- NOTE | 2018-05-26 08:58 | PCM.PYCHPN ---
Psychiatric Progress Note - Psychiatric Progress Note Patient seen today, length of contact: 30 minutes Problems Identified/Issues Discussed: I reviewed recent notes and met with patient at bedside. Patient is familiar to me from our prior interview x4 days ago. She seems improved. Patient is more related, focused and engageable. Her thought process is still scattered at times but she can communicate and reason more logically. Staff still have observed her talking to herself though she denies having any hallucinations when I directly ask her. Still seems oddly related but as noted, this is improving. Her grooming is fair and she still has a tendency to mumble softly requiring her to repeat some of her responses. She denies any issues or concerns. She is tolerating her medications though complains of a headache this morning. Denies other discomfort or pain. Indicates that she is sleeping well and hopeful about leaving soon. Staff have noted that patient is more pleasant and manageable but still fixated on food complaints. She is compliant with her medications and agrees to injection of Invega Trinza today. Diagnostic Results: Schizophrenia as per history Polysubstance abuse and dependence Medication Change: No ( ) Medical Record Reviewed: Yes Mental Status Examination - Cognitive Function Orientation: Person, Place Memory: Impaired Attention: Poor (some improvement) Concentration: Poor (some improvement) Association: Loose (some improvement) Fund of Knowledge: Poor - Mood Mood: Neutral - Affect Affect: Constricted (but at times pt smiling) - Speech Speech: Slurred - Formal Thought Process Formal Thought Process: Hallucinations (denies but observed talking to herself on the unit), Delusions, Paranoia (denied today), Loosening of associations, Circumstantial - Suicidal Ideation Suicidal Ideation: No - Homicidal Ideation Homicidal Ideation: No Goal/Treatment Plan - Goal/Treatment Plan Need for Continued Stay: Remain at risks for inpatient hospitalization, Severe depression anxiety, Discharge may exacerbated symptoms, Failed transitioning, Severe functional impairment Progress Toward Problem(s) and Goals/Treatment Plan: * c/w current tx and plan * Invega Trinza scheduled for today, awaiting medication from PACT * Vitals reviewed and noted below: Selected Entries 05/25/18 05/25/18 07:18 16:22 Temperature 97.6 F Pulse Rate 68 106 H Respiratory 20 Rate Blood Pressure 111/69 98/56 L Estimated Date of D/C: 05/28/18
[2018-05-26] MEDS: Divalproex 500 mg DR(BID formulation) PO SCH ×2 (10:04→16:45)
[2018-05-26] MEDS ORDERED: MEDROXYPROGESTERONE 150 MG IM SCH ×2 (11:00)
[2018-05-26] MEDS ORDERED: INVEGA TRINZA 819 MG IM SCH (14:00)
--- NOTE | 2018-05-27 08:57 | PCM.PYCHPN ---
Psychiatric Progress Note - Psychiatric Progress Note Patient seen today, length of contact: 30 minutes Problems Identified/Issues Discussed: I reviewed recent weekend notes and met with patient at bedside again. Patient is familiar to me from our prior interview x4 days ago. She seems improved. Patient is more related, focused and engageable. Her thought process is still scattered at times but she can communicate and reason more logically. Staff have observed her talking to herself though she denies having any hallucinations when I directly ask her during both my visits this weekend. Patient continues to be preoccupied and oddly related but as noted, this is improving. Her grooming is fair and patient's responses are more coherent today. She denies any physical issues, discomfort or side effects except for fatigue s/p two injections yesterday, Invega Trinza 819 mg and the Medroxy progesterone 150 mg. Patient reports that she is sleeping "fairly good". She is looking forward to discharge but has concerns about the arrival of her check and lack of a coat. Staff have noted that patient is more pleasant and manageable but still fixated on food complaints. There were no behavioral issues overnight. Diagnostic Results: Schizophrenia as per history Polysubstance abuse and dependence Medication Change: No ( ) Medical Record Reviewed: Yes Mental Status Examination - Cognitive Function Orientation: Person, Place Memory: Impaired Attention: Poor (some improvement) Concentration: Poor (some improvement) Association: Loose (some improvement) Fund of Knowledge: Poor - Mood Mood: Neutral - Affect Affect: Constricted (but at times pt smiling) - Speech Speech: Slurred - Formal Thought Process Formal Thought Process: Hallucinations (denies but observed talking to herself on the unit), Delusions, Paranoia (denied today), Loosening of associations, Circumstantial - Suicidal Ideation Suicidal Ideation: No - Homicidal Ideation Homicidal Ideation: No Goal/Treatment Plan - Goal/Treatment Plan Need for Continued Stay: Remain at risks for inpatient hospitalization, Severe depression anxiety, Discharge may exacerbated symptoms, Failed transitioning, Severe functional impairment Progress Toward Problem(s) and Goals/Treatment Plan: * c/w current tx and plan * No new weekend lab results * Invega Trinza 819 mg and the Medroxy progesterone 150 mg injectables given 05/26/18. * Vitals reviewed and noted below: Selected Entries 05/26/18 05/26/18 07:00 19:48 Temperature 97.2 F L Pulse Rate 84 86 Respiratory 16 Rate Blood Pressure 116/60 105/60 Estimated Date of D/C: 05/28/18
[2018-05-27] MEDS: Divalproex 500 mg DR(BID formulation) PO SCH ×2 (10:33→16:38)
[2018-05-28] MEDS: Divalproex 500 mg DR(BID formulation) PO SCH (08:56)
[2018-05-28 09:36] VITALS: BP 103/62; PULSE 90; RESP 17; TEMP 97.3
--- NOTE | 2018-05-28 16:06 | PCM.PYCHDC ---
Mental Status Examination - Mental Status Examination Orientation: Person, Place, Situation, Time Memory: Impaired (baseline) Mood: Neutral Affect: Constricted (but reactive, mood congruent) Speech: Slurred (baseline, but improved) Attention: Poor (baseline) Concentration: Poor (baseline) Association: Loose (baseline) Fund of Knowledge: Poor (baseline) Formal Thought Process: Other (thought process disorganized, but overall better) Description of patient's judgement and insight: Pt has improved insight into mental and medical illness, pt was compliant with medications and unit rules and regulations, pt was going to groups, was calm, cooperative, socially appropriate, no behavioral incidents, no agitation, no aggression. Psychotic Thoughts and Behaviors: Pt denied v/a/t hallucinations, denied paranoid ideations, pt does not appear to be psychotic, and thought process is goal directed. Suicidal Ideation: No Current Homicidal Ideation?: No Plan: pt adamantly denied thoughts of harming self or others denied intent or plan. Discharge Summary - Discharge Note Reason for Hospitalization: disorganized thoughts and behavior Psychiatric History (includes Medical, Family, Personal Hx): chronic mental illness, chronic noncompliance with medications Laboratory Data: 05/13/18 05:05 05/13/18 05:05 Lab Results 05/22/18 09:30: Valproic Acid 38 L 05/13/18 05:05: Urine Opiates Screen Negative, Urine Methadone Screen Negative, Ur Barbiturates Screen Negative, Ur Phencyclidine Scrn Negative, Ur Amphetamines Screen Negative, U Benzodiazepines Scrn Negative, U Oth Cocaine Metabols Positive H, U Cannabinoids Screen Negative 05/13/18 05:05: Alcohol, Quantitative < 10 05/13/18 05:05: WBC 7.1, RBC 3.96, Hgb 11.9 L, Hct 35.9 L, MCV 90.7, MCH 30.1, MCHC 33.1, RDW 12.7, Plt Count 263, MPV 9.9 05/13/18 05:05: Sodium 140, Potassium 3.5 L, Chloride 106, Carbon Dioxide 28, Anion Gap 10, BUN 13, Creatinine 0.7, Est GFR ( Amer) > 60, Est GFR (Non- Af Amer) > 60, Random Glucose 88, Calcium 9.0, Total Bilirubin 0.4, AST 24, ALT 23, Alkaline Phosphatase 52, Total Protein 6.4, Albumin 3.7, Globulin 2.8, Albumin/Globulin Ratio 1.3 Vital Signs Temp Pulse Resp BP Pulse Ox 05/28/18 07:00 97.3 F L 90 17 103/62 05/27/18 15:00 93 H 16 98/59 L 05/27/18 07:00 97.8 F 79 16 105/62 99 05/26/18 19:48 86 105/60 05/26/18 07:00 97.2 F L 84 16 116/60 99 05/25/18 16:22 106 H 98/56 L 05/25/18 07:18 97.6 F 68 20 111/69 05/22/18 16:22 90 97/65 L 05/21/18 15:37 92 H 96/57 L 05/20/18 16:22 90 91/60 L 05/18/18 15:58 91 H 103/66 05/18/18 07:09 97.8 F 70 20 90/60 L 05/17/18 09:25 97.5 F L 82 20 98/71 L 05/16/18 16:00 87 122/69 05/16/18 07:05 98.1 F 81 20 95/62 L 05/15/18 07:00 98.1 F 70 18 88/59 L 05/14/18 16:00 80 83/54 L 05/14/18 07:00 97.6 F 65 18 99/64 L 05/14/18 03:53 717 H 05/13/18 17:00 78 18 118/70 99 05/13/18 15:00 78 18 134/71 99 05/13/18 11:00 71 18 115/72 99 05/13/18 07:38 82 18 104/72 96 05/13/18 06:52 83 17 100/62 98 05/13/18 04:46 98.5 F 96 H 17 98/61 L 98 Consultations:: List each consultation separately and include: 1. Reason for request. 2. Findings. 3. Follow-up Consultations: medical team evaluated patient, please see consultation note for more detailed information Summary of Hospital Course include:: 1. Description of specific treatment plan utilized for patients during their course of treatmen. 2. Summarize the time- course for resolution of acute symptoms and/or regressed behaviors. 3. Describe issues identified and worked on during hospitalization. 4. Describe medication utilized. 5. Describe medical problems identified and treated. 6. Reassessment of suicide risk Summary of Hospital Course: see admission note for more detailed information pt was admitted for worsening of psychosis, noncompliance with meds using drugs pt was stabilized on the following meds: risperdal 6 mg a day for psychosis and mood stabilization, dose was decreased af ter injection of Invega Depakote was resumed for mood stabilization 500mg po [facility] depakote level 05/22/18 38 cogentin 1mg po [facility]CT involved, Invega trinza will be brought by them 819mg, injection was given 05/26/18, pt agreed pt also got Depo-provera 150mg 05/26/18 pt tolerated meds well no side effects observed or reported, AIMS 0, no EPS. Over the course of this hospitalization pt was very difficult to manage for the first week of admission due to severe psychosis, agitation, after pt started to take meds regularly pt became more pleasant, no agitation, was trying to attend groups, pt also had medication management, had therapeutic milieu. Overall pt improved significantly, pt's affect became brighter, pt was less depressed, less psychosis but pt has residual psychotic symptoms. pt was socially appropriate, no behavioral issues, pts insight improved as well and soon pt deemed to be ready for discharge. pt was seen by PACT team prior to d/c, pt presented at her baseline. At the time of the discharge pt denied been depressed, denied thoughts of harming self or others, denied psychotic symptoms, and pt does not appeared to be psychotic, denied been anxious, pt is not in imminent danger to self or others, PACT team will be f/u with pt, information about follow up appointment, time and address provided to the pt, it is patient responsibility to follow up with outpatient clinic, PMD as well as specialists (see SW note for more detailed information). In case pt will need to obtain results of studies pending at discharge pt was provided with contact information of Psychiatric Inpatient unit [phone] as well as Medical Record Department [phone]. Naltrexone treatment not indicated at this time. Counseling about smoking and alcohol cessation provided AA meetings as well as smoking cessation treatment program information was provided by the pt was provided with prescriptions for all of medications (please see medication reconciliation form) Pt was educated about safety plan in case of worsening of symptoms or in case of suicidal or homicidal ideation call 911 or go to the nearest ER, also was educated to take meds as prescribed and stay away from drugs, pt verbalized understanding. - Diagnosis (1) Cocaine abuse Status: Chronic Priority: High (2) Schizophrenia Status: Chronic Priority: High - Final Diagnosis (DSM 5) Condition upon Discharge: IMPROVED Disposition: HOME/ ROUTINE Follow-up Treatment Plan: At the time of the discharge pt denied been depressed, denied thoughts of harming self or others, denied psychotic symptoms, and pt does not appeared to be psychotic, denied been anxious, pt is not in imminent danger to self or others, PACT team will be f/u with pt, information about follow up appointment, time and address provided to the pt, it is patient responsibility to follow up with outpatient clinic, PMD as well as specialists (see note for more detailed information). In case pt will need to obtain results of studies pending at discharge pt was provided with contact information of Psychiatric Inpatient unit [phone] as well as Medical Record Department [phone]. Naltrexone treatment not indicated at this time. Counseling about smoking and alcohol cessation provided AA meetings as well as smoking cessation treatment program information was provided by the pt was provided with prescriptions for all of medications (please see medication reconciliation form) Pt was educated about safety plan in case of worsening of symptoms or in case of suicidal or homicidal ideation call 911 or go to the nearest ER, also was educated to take meds as prescribed and stay away from drugs, pt verbalized understanding. Prescriptions/Medication Reconciliation: Benztropine [Benztropine Mesylate] 1 mg PO [facility] #30 tab Divalproex [Depakote DR(*BID*)] 500 mg PO BID #30 tcp Paliperidone Palmitate [Invega Trinza] 819 mg IM Q90D #1 syringe risperiDONE [RisperDAL Tab] 1 mg PO BID #30 tab - Smoking Cessation Smoking Cessation Medication prescribed: No Reason for not providing: pt refused - Antipsychotic Medications Pt discharged on 2 or more routine antipsychotic medications: Yes - Justification for 2 or more meds Failed 3 or more trials of Monotherapy: List medications: risperdal will be d/c after one month. pt got shot of Invega Trinza
--- NOTE | 2018-06-14 06:21 | PQF ---
PROVIDER RESPONSE TEXT: Mild intermittent asthma symptoms REVIEWER QUERY TEXT: Asthma Specificity and Type Asthma is documented in the Medical Record. Please specify the type and severity of asthma and indic ate if this is associated with exacerbation or status asthmaticus. Such as: -- Mild intermittent -- Mild persistent -- Moderate persistent -- Severe persistent -- Exercise induced bronchospasm -- Cough variant asthma -- Other, please specify The patient's Clinical Indicators include: You document asthma exacerbation on your consult, treated with Albuterol. Please specify type, as kellee dumont below. Thank you. Query created by: Mindy Bagley on 05/29/2018 2:29 PM Electronically signed by: Bruno TAPIA 06/14/2018 6:18 AM
== END 2018-05-28 12:43 | disposition home or self-care (01) | DRG 885 ==
LOC: ED 04:32 → ERH 21:10 → PSYC 22:03
PROVIDERS: ADMIT Psychiatry & Neurology Psychiatry; ATTEND Psychiatry & Neurology Psychiatry
DX: F20.9 Schizophrenia, unspecified (principal); J45.21 Mild intermittent asthma with (acute) exacerbation; F14.10 Cocaine abuse, uncomplicated; F17.210 Nicotine dependence, cigarettes, uncomplicated; F31.9 Bipolar disorder, unspecified; E87.6 Hypokalemia; Z59.0 Homelessness; Z91.14 Patient's other noncompliance with medication regimen; Z91.410 Personal history of adult physical and sexual abuse; Z79.899 Other long term (current) drug therapy; Z91.012 Allergy to eggs; Z91.018 Allergy to other foods

== ENCOUNTER 2018-06-19 12:23 | Inpatient (IN) | payer MEDICARE, MEDICAID ==
[2018-06-19 12:24] VITALS: BMI 19.8
[2018-06-19] MEDS ORDERED: Pantoprazole 40 mg EC Tab PO STA (13:40)
[2018-06-19 14:00] LABS: BASO # 0.01 K/mm3 (0.0-2.0); BASO % 0.2 % (0.0-3.0); EOS # 0.2 (0.0-0.7); EOS % 3.7 % (1.5-5.0); GRAN # 4.25 (1.4-6.5); GRAN % 75.2 % (50.0-68.0); HEMOGLOBIN 14.4 g/dL (12.0-16.0); LYMPH % 17.7 % (22.0-35.0); MEAN CELL VOLUME 90.4 fl (80.0-105.0); MEAN CORPUSCULAR HEMOGLOBIN 30.7 pg (25.0-35.0); MONO # 0.2 (0.1-0.6); MONO % 3.2 % (1.0-6.0); RBC 4.69 10^6/uL (3.5-6.1); RED CELL DISTRIBUTION WIDTH 13.3 % (11.5-14.5); WHITE BLOOD COUNT 5.7 10^3/uL (4.5-11.0)
[2018-06-19 15:15] LABS: ACETAMINOPHEN < 10.0 ug/ml (10.0-20.0); SALICYLATE < 1 mg/dL (2.0-20.0)
[2018-06-19 15:16] LABS: ALB/GLOB RATIO 1.2 (1.1-1.8); ALBUMIN 3.6 g/dL (3.0-4.8); ALT/SGPT 30 U/L (7-56); AST/SGOT 22 U/L (14-36); BLOOD UREA NITROGEN 10 mg/dL (7-21); CALCIUM 9.1 mg/dL (8.4-10.5); GFR NON-AFRICAN AMERICAN > 60
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
[2018-06-19 15:40] LABS: URINE BILIRUBIN SMALL (NEGATIVE); URINE BLOOD SMALL (NEGATIVE); URINE GLUCOSE (UA) NEGATIVE (NEGATIVE); URINE LEUKOCYTE ESTERASE NEGATIVE Leu/uL (NEGATIVE); URINE PROTEIN 30 mg/dL (<30 mg/dL)
[2018-06-19 15:43] LABS: URINE APPEARANCE SLIGHT-CLOUDY (CLEAR); URINE COLOR YELLOW (YELLOW)
[2018-06-19] MEDS ORDERED: Potassium Chloride 20 mEq ER Tab PO STA (15:56)
[2018-06-19 16:02] LABS: BARBITURATES, UR NEGATIVE (NEGATIVE)
[2018-06-19 16:10] LABS: URINE BACTERIA MOD (NEG); URINE HYALINE CAST 0 - 2 /hpf
--- NOTE | 2018-06-19 16:17 | RAD ---
Date of service: 06/19/2018 HISTORY: pes COMPARISON: 05/13/2018 FINDINGS: LUNGS: No active pulmonary disease. PLEURA: No significant pleural effusion identified, no pneumothorax apparent. CARDIOVASCULAR: No aortic atherosclerotic calcification present. Normal cardiac size. No pulmonary vascular congestion. OSSEOUS STRUCTURES: No significant abnormalities. VISUALIZED UPPER ABDOMEN: Normal. OTHER FINDINGS: None. IMPRESSION: No active disease.
[2018-06-19 16:21] LABS: BENZODIAZEPINES, UR NEGATIVE (NEGATIVE); OPIATES, UR NEGATIVE (NEGATIVE); PHENCYCLIDINE, UR NEGATIVE (NEGATIVE)
[2018-06-19] MEDS ORDERED: Magnesium Hydroxide Susp 30 ml UD PO PRN (18:24)
[2018-06-19] MEDS ORDERED: Alum-Mag Hydrox-Simethicone Susp (30 mL) PO PRN (18:24)
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
[2018-06-19 19:24] VITALS: O2SAT 100
--- NOTE | 2018-06-19 19:33 | CARD ---
APPROVED REPORT Date of service: 06/19/2018 EKG Measurement Heart [id number] <Conclusion> Sinus rhythm with 1st degree AV block New ST and T wave changes in V1-V4, consider anterior wall ischemia Abnormal ECG
[2018-06-20 08:19] LABS: HDL CHOLESTEROL 46 mg/dL (29-60)
[2018-06-20 08:30] LABS: LDL CHOLESTEROL 64 mg/dL (0-129)
[2018-06-20 08:37] LABS: FREE T4 0.66 ng/dL (0.78-2.19)
[2018-06-20] MEDS: Divalproex 500 mg DR(BID formulation) PO SCH ×2 (09:39→17:18)
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
[2018-06-21] MEDS: Divalproex 500 mg DR(BID formulation) PO SCH ×2 (09:44→17:27)
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
[2018-06-22] MEDS: Divalproex 500 mg DR(BID formulation) PO SCH ×2 (07:58→16:48)
--- NOTE | 2018-06-22 13:27 | PCM.PYCHPN ---
Psychiatric Progress Note - Psychiatric Progress Note Patient seen today, length of contact: 30min Patient Chief Complaint: "I know that somebody spit on me, I feel it, I feel the smell...." Problems Identified/Issues Discussed: Suicide/ homicide prevention, past psychiatric h/o, current psychiatric symptoms, medical problems, risk/benefits and alternatives of medications, medications compliance, coping strategies, substance abuse h/o, relapse prevention, importance of follow up with psychiatrist and therapist, discharge plan. Medical Problems: pt is relatively healthy Diagnostic Results: 06/19/18 13:45 06/19/18 14:15 Lab Results 06/20/18 07:55: Valproic Acid < 10 L 06/20/18 07:55: RPR Nonreactive 06/20/18 07:55: Triglycerides 28 L, Cholesterol 110 L, LDL Cholesterol Direct 64, HDL Cholesterol 46 06/20/18 07:55: Free T4 0.66 L, TSH 3rd Generation 0.56 06/19/18 15:00: Urine Opiates Screen Negative, Urine Methadone Screen Negative, Ur Barbiturates Screen Negative, Ur Phencyclidine Scrn Negative, Ur Amphetamines Screen Negative, U Benzodiazepines Scrn Negative, U Oth Cocaine Metabols Pos itive H, U Cannabinoids Screen Negative 06/19/18 15:00: Urine Color Yellow, Urine Appearance Slight-cloudy, Urine pH 6.0, Ur Specific [place] >= 1.030, Urine Protein 30 H, Urine Glucose (UA) Negative, Urine Ketones Trace H, Urine Blood Small H, Urine Nitrate Negative, Urine Bilirubin Small H, Urine Urobilinogen 1.0 H, Ur Leukocyte Esterase Negative, Urine RBC 10 - 15, Urine WBC 2 - 5, Ur Epithelial Cells 10 - 12, Urine Bacteria Mod, Hyaline Casts 0 - 2 06/19/18 14:15: Alcohol, Quantitative < 10 06/19/18 14:15: Salicylates < 1 L, Acetaminophen < 10.0 L 06/19/18 14:15: Sodium 141, Potassium 3.5 L, Chloride 107, Carbon Dioxide 24, An ion Gap 13, BUN 10, Creatinine 0.7, Est GFR ( Amer) > 60, Est GFR (Non-Af Amer) > 60, Random Glucose 147 H, Calcium 9.1, Total Bilirubin 0.4, AST 22, ALT 30, Alkaline Phosphatase 93, Total Protein 6.5, Albumin 3.6, Globulin 2.9, Albumin/Globulin Ratio 1.2 06/19/18 13:45: WBC 5.7, RBC 4.69, Hgb 14.4 D, Hct 42.4, MCV 90.4, MCH 30.7, MCHC 34.0, RDW 13.3, Plt Count 239, MPV 10.0, Gran % 75.2 H, Lymph % (Auto) 17.7 L, [place] % (Auto) 3.2, Eos % (Auto) 3.7, Baso % (Auto) 0.2, Gran # 4.25, Lymph # (Auto) 1.0 L, [place] # (Auto) 0.2, Eos # (Auto) 0.2, Baso # (Auto) 0.01 Vital Signs Temp Pulse Resp BP Pulse Ox 06/19/18 17:47 98.7 F 96 H 18 112/62 100 06/19/18 16:33 98.4 F 96 H 16 102/65 97 06/19/18 15:43 98.2 F 98 H 16 99/64 L 99 06/19/18 13:45 98.4 F 95 H 16 108/65 98 06/19/18 12:24 98.2 F 99 H 18 105/74 100 DSM 5 Symptoms Update: shortly pt is 37yo with reported h/o schizophrenia, h/o cocaine abuse, currently under care of [facility] PACT, h/o noncompliance with medications and follow up appts, pt has multiple psychiatric admissions, pt has tendency of signing herself out of the hospital AMA, pt was d/c from this unit last month, since that time pt was noncompliant with meds and follow up appts since last admission, pt relapsed on drugs. Pt was admitted for evaluation and stabilization of disorganized thoughts and behavior, psychosis, inability to function. In ED pt presented to be disheveled, pt required further evaluation and stabilization. pt was seen in her room with medical parasitologist and student. pt presented to be psychotic and disorganized, 06/20/18 was visited by PACT team, was agitated during the visit. 06/21/18 pt was agitated and spit on staff and other patient, pt required IM medication. today pt was threatening that she is going to spit on RN. pt presented with poor hygiene today, psychotic, said that she was spit on and she knew about it because "I could feel it, I could smell it", based on report pt spit on staff but nobody spit at the pt. so far patient tolerates medications well, no side effects observed or reported, aims 0, no EPS. Impression: Schizophrenia versus schizoaffective disorder Polysubstance abuse and dependence Substance-induced psychosis Medication Change: Yes (risperdal increased) Medical Record Reviewed: Yes Mental Status Examination - Cognitive Function Orientation: Person, Place Attention: Poor Concentration: Poor Association: Loose Fund of Knowledge: Poor - Mood Mood: Depressed, Anxious - Affect Affect: Flat - Formal Thought Process Formal Thought Process: Hallucinations, Delusions, Paranoia, Loosening of associations, Circumstantial - Suicidal Ideation Suicidal Ideation: No - Homicidal Ideation Homicidal Ideation: No Goal/Treatment Plan - Goal/Treatment Plan Need for Continued Stay: Remain at risks for inpatient hospitalization, Severe depression anxiety, Discharge may exacerbated symptoms, Severe functional impairment Progress Toward Problem(s) and Goals/Treatment Plan: Milieu/structure/supportive therapy Medical consult would be considered Med management risperdal 1mg po bid and 2HS for psychosis nvega trinza was given 819mg on 05/26/18, next is due 08/18/18 Depakote was resumed for mood stabilization PRN meds [facility] PACT involved Family involvement Follow up on labs Will monitor closely Pt was educated about risk/benefits and alternatives of medications, coping strategies (safety plan, suicide prevention), relapse prevention, importance of follow up with psychiatrist and therapist, stay away from drugs/alcohol/smoking nutritional consult might be beneficial pt submitted 48hr notice 06/20/18, rescinded it 06/21/18 Estimated Date of D/C: 06/29/18
--- NOTE | 2018-06-23 09:37 | PCM.PYCHPN ---
Psychiatric Progress Note - Psychiatric Progress Note Patient seen today, length of contact: 30min Problems Identified/Issues Discussed: I reviewed assessment and recent notes. I met with patient at bedside. She appears anxious and oddly related though oriented to month, year and location. Patient is preoccupied and paranoid. She didn't sleep well because "someone came in to watch me" last night. She has a lot of fear about people entering the room to harm her. She appears to be in some mental distress due to her psychotic symptoms and tells me that she is "not doing too good". Patient denies any new discomfort, pain or s/e. Upon my inquiry, patient denies AVH, SI or HI. Staff have noted patient to be disorganized, agitated and threatening. She is not interactive or appears related enough to tolerate discharge into the community and remains unpredictable due to continued delusions. Diagnostic Results: Schizophrenia versus schizoaffective disorder Polysubstance abuse and dependence Substance-induced psychosis Medication Change: Yes (risperdal increased) Medical Record Reviewed: Yes Mental Status Examination - Cognitive Function Orientation: Person, Place Attention: Poor Concentration: Poor Association: Loose Fund of Knowledge: Poor - Mood Mood: Depressed ("not doing too good"), Anxious - Affect Affect: Flat (labile) - Formal Thought Process Formal Thought Process: Hallucinations, Delusions, Paranoia, Loosening of associations, Circumstantial - Suicidal Ideation Suicidal Ideation: No - Homicidal Ideation Homicidal Ideation: No Goal/Treatment Plan - Goal/Treatment Plan Need for Continued Stay: Remain at risks for inpatient hospitalization, Severe depression anxiety, Discharge may exacerbated symptoms, Severe functional impairment Progress Toward Problem(s) and Goals/Treatment Plan: * c/w current tx and plan * No new lab results thus far * Vitals reviewed and noted below: Selected Entries 06/19/18 17:47 Temperature 98.7 F Pulse Rate 96 H Respiratory 18 Rate Blood Pressure 112/62 Estimated Date of D/C: 06/29/18
[2018-06-23] MEDS: Divalproex 500 mg DR(BID formulation) PO SCH ×2 (10:01→15:55)
[2018-06-24] MEDS: Divalproex 500 mg DR(BID formulation) PO SCH ×2 (09:20→17:54)
--- NOTE | 2018-06-24 10:07 | PCM.PYCHPN ---
Psychiatric Progress Note - Psychiatric Progress Note Patient seen today, length of contact: 30min Problems Identified/Issues Discussed: I reviewed recent notes and met with patient at bedside again. She appears a little less anxious today but she is still unkempt and oddly related. Patient r emains preoccupied, guarded and paranoid. Indicates she is feeling a little better but she still didn't sleep well because "someone came in to watch me" last night and tells me "that man is outside my room" (I didn't observe anyone in the rai at all). Patient denies any new discomfort, pain or s/e. Upon my inquiry, patient denies AVH, SI or HI. Staff noted patient to be disorganized, agitated and threatening last week and she remains brittle though without any behavioral issues thus far this weekend. Diagnostic Results: Schizophrenia versus schizoaffective disorder Polysubstance abuse and dependence Substance-induced psychosis Medication Change: Yes (risperdal increased) Medical Record Reviewed: Yes Mental Status Examination - Cognitive Function Orientation: Person, Place Attention: Poor Concentration: Poor Association: Loose Fund of Knowledge: Poor - Mood Mood: Depressed ("not doing too good"), Anxious - Affect Affect: Flat (labile) - Formal Thought Process Formal Thought Process: Hallucinations (denied all weekend), Delusions, Paranoia, Loosening of associations, Circumstantial - Suicidal Ideation Suicidal Ideation: No - Homicidal Ideation Homicidal Ideation: No Goal/Treatment Plan - Goal/Treatment Plan Need for Continued Stay: Remain at risks for inpatient hospitalization, Severe depression anxiety, Discharge may exacerbated symptoms, Severe functional impairment Progress Toward Problem(s) and Goals/Treatment Plan: * c/w current tx and plan * No new lab results thus far * Vitals reviewed and noted below: Selected Entries 06/23/18 06:44 Temperature 98.9 F Pulse Rate 74 Respiratory 18 Rate Blood Pressure 88/55 L Estimated Date of D/C: 06/29/18
[2018-06-25] MEDS: Divalproex 500 mg DR(BID formulation) PO SCH ×2 (11:00→18:59)
--- NOTE | 2018-06-25 15:35 | PCM.PYCHPN ---
Psychiatric Progress Note - Psychiatric Progress Note Patient seen today, length of contact: 30min Patient Chief Complaint: "I know that somebody spit on me, I feel it, I feel the smell...." Problems Identified/Issues Discussed: Suicide/ homicide prevention, past psychiatric h/o, current psychiatric symptoms, medical problems, risk/benefits and alternatives of medications, medications compliance, coping strategies, substance abuse h/o, relapse prevention, importance of follow up with psychiatrist and therapist, discharge plan. Medical Problems: pt is relatively healthy Diagnostic Results: 06/19/18 13:45 06/19/18 14:15 Lab Results 06/20/18 07:55: Valproic Acid < 10 L 06/20/18 07:55: RPR Nonreactive 06/20/18 07:55: Triglycerides 28 L, Cholesterol 110 L, LDL Cholesterol Direct 64, HDL Cholesterol 46 06/20/18 07:55: Free T4 0.66 L, TSH 3rd Generation 0.56 06/19/18 15:00: Urine Opiates Screen Negative, Urine Methadone Screen Negative, Ur Barbiturates Screen Negative, Ur Phencyclidine Scrn Negative, Ur Amphetamines Screen Negative, U Benzodiazepines Scrn Negative, U Oth Cocaine Metabols Pos itive H, U Cannabinoids Screen Negative 06/19/18 15:00: Urine Color Yellow, Urine Appearance Slight-cloudy, Urine pH 6.0, Ur Specific [place] >= 1.030, Urine Protein 30 H, Urine Glucose (UA) Negative, Urine Ketones Trace H, Urine Blood Small H, Urine Nitrate Negative, Urine Bilirubin Small H, Urine Urobilinogen 1.0 H, Ur Leukocyte Esterase Negative, Urine RBC 10 - 15, Urine WBC 2 - 5, Ur Epithelial Cells 10 - 12, Urine Bacteria Mod, Hyaline Casts 0 - 2 06/19/18 14:15: Alcohol, Quantitative < 10 06/19/18 14:15: Salicylates < 1 L, Acetaminophen < 10.0 L 06/19/18 14:15: Sodium 141, Potassium 3.5 L, Chloride 107, Carbon Dioxide 24, An ion Gap 13, BUN 10, Creatinine 0.7, Est GFR ( Amer) > 60, Est GFR (Non-Af Amer) > 60, Random Glucose 147 H, Calcium 9.1, Total Bilirubin 0.4, AST 22, ALT 30, Alkaline Phosphatase 93, Total Protein 6.5, Albumin 3.6, Globulin 2.9, Albumin/Globulin Ratio 1.2 06/19/18 13:45: WBC 5.7, RBC 4.69, Hgb 14.4 D, Hct 42.4, MCV 90.4, MCH 30.7, MCHC 34.0, RDW 13.3, Plt Count 239, MPV 10.0, Gran % 75.2 H, Lymph % (Auto) 17.7 L, [place] % (Auto) 3.2, Eos % (Auto) 3.7, Baso % (Auto) 0.2, Gran # 4.25, Lymph # (Auto) 1.0 L, [place] # (Auto) 0.2, Eos # (Auto) 0.2, Baso # (Auto) 0.01 Vital Signs Temp Pulse Resp BP Pulse Ox 06/19/18 17:47 98.7 F 96 H 18 112/62 100 06/19/18 16:33 98.4 F 96 H 16 102/65 97 06/19/18 15:43 98.2 F 98 H 16 99/64 L 99 06/19/18 13:45 98.4 F 95 H 16 108/65 98 06/19/18 12:24 98.2 F 99 H 18 105/74 100 DSM 5 Symptoms Update: shortly pt is 37yo with reported h/o schizophrenia, h/o cocaine abuse, currently under care of [facility] PACT, h/o noncompliance with medications and follow up appts, pt has multiple psychiatric admissions, pt has tendency of signing herself out of the hospital AMA, pt was d/c from this unit last month, since that time pt was noncompliant with meds and follow up appts since last admission, pt relapsed on drugs. Pt was admitted for evaluation and stabilization of disorganized thoughts and behavior, psychosis, inability to function. In ED pt presented to be disheveled, pt required further evaluation and stabilization. pt was seen in her room with Mental Health Worker, pt deeply sleeping, pt pulled the curtain and used it as a blanket. later on pt was evaluated at the hallway, pt still disorganized, paranoid still has paranoid ideation that somebody spitting on her while she sleeps and pt convinced that it it true because "I could feel it, I could smell it", obviously nobody spit on the patient. as per report pt has tendency of trying to go to other patients rooms and trying to take their pillows. pt needs constant redirection. 06/20/18 was visited by PACT team, was agitated during the visit. so far patient tolerates medications well, no side effects observed or reported, aims 0, no EPS. Impression: Schizophrenia versus schizoaffective disorder Polysubstance abuse and dependence Substance-induced psychosis Medication Change: Yes (risperdal increased) Medical Record Reviewed: Yes Consults ordered or reviewed: patient is relatively healthy, no physical complaints Mental Status Examination - Cognitive Function Orientation: Person, Place Attention: Poor Concentration: Poor Association: Loose Fund of Knowledge: Poor - Mood Mood: Depressed ("not doing too good"), Anxious - Affect Affect: Flat (labile) - Formal Thought Process Formal Thought Process: Hallucinations (denied all weekend), Delusions, Paranoia, Loosening of associations, Circumstantial - Suicidal Ideation Suicidal Ideation: No - Homicidal Ideation Homicidal Ideation: No Goal/Treatment Plan - Goal/Treatment Plan Need for Continued Stay: Remain at risks for inpatient hospitalization, Severe depression anxiety, Discharge may exacerbated symptoms, Severe functional impairment Progress Toward Problem(s) and Goals/Treatment Plan: Milieu/structure/supportive therapy Medical consult would be considered Med management risperdal 1mg po bid and 2HS for psychosis nvega trinza was given 819mg on 05/26/18, next is due 08/18/18 Depakote 500mg po bid will f/u on depakote level remeron 15mg hs for depression/insomnia PRN meds [facility] PACT involved Family involvement Follow up on labs Will monitor closely Pt was educated about risk/benefits and alternatives of medications, coping strategies (safety plan, suicide prevention), relapse prevention, importance of follow up with psychiatrist and therapist, stay away from drugs/alcohol/smoking nutritional consult might be beneficial pt submitted 48hr notice 06/20/18, rescinded it 06/21/18 Estimated Date of D/C: 06/29/18
[2018-06-26 06:59] VITALS: BP 95/68; PULSE 127; RESP 20; TEMP 97.8
[2018-06-26] MEDS: Divalproex 500 mg DR(BID formulation) PO SCH ×2 (08:28→17:19)
--- NOTE | 2018-06-26 13:46 | PCM.PYCHPN ---
Psychiatric Progress Note - Psychiatric Progress Note Patient seen today, length of contact: 30min Patient Chief Complaint: "I know that somebody spit on me, I feel it, I feel the smell...." Problems Identified/Issues Discussed: Suicide/ homicide prevention, past psychiatric h/o, current psychiatric symptoms, medical problems, risk/benefits and alternatives of medications, medications compliance, coping strategies, substance abuse h/o, relapse prevention, importance of follow up with psychiatrist and therapist, discharge plan. Medical Problems: pt is relatively healthy Diagnostic Results: 06/19/18 13:45 06/19/18 14:15 Lab Results 06/20/18 07:55: Valproic Acid < 10 L 06/20/18 07:55: RPR Nonreactive 06/20/18 07:55: Triglycerides 28 L, Cholesterol 110 L, LDL Cholesterol Direct 64, HDL Cholesterol 46 06/20/18 07:55: Free T4 0.66 L, TSH 3rd Generation 0.56 06/19/18 15:00: Urine Opiates Screen Negative, Urine Methadone Screen Negative, Ur Barbiturates Screen Negative, Ur Phencyclidine Scrn Negative, Ur Amphetamines Screen Negative, U Benzodiazepines Scrn Negative, U Oth Cocaine Metabols Pos itive H, U Cannabinoids Screen Negative 06/19/18 15:00: Urine Color Yellow, Urine Appearance Slight-cloudy, Urine pH 6.0, Ur Specific [place] >= 1.030, Urine Protein 30 H, Urine Glucose (UA) Negative, Urine Ketones Trace H, Urine Blood Small H, Urine Nitrate Negative, Urine Bilirubin Small H, Urine Urobilinogen 1.0 H, Ur Leukocyte Esterase Negative, Urine RBC 10 - 15, Urine WBC 2 - 5, Ur Epithelial Cells 10 - 12, Urine Bacteria Mod, Hyaline Casts 0 - 2 06/19/18 14:15: Alcohol, Quantitative < 10 06/19/18 14:15: Salicylates < 1 L, Acetaminophen < 10.0 L 06/19/18 14:15: Sodium 141, Potassium 3.5 L, Chloride 107, Carbon Dioxide 24, An ion Gap 13, BUN 10, Creatinine 0.7, Est GFR ( Amer) > 60, Est GFR (Non-Af Amer) > 60, Random Glucose 147 H, Calcium 9.1, Total Bilirubin 0.4, AST 22, ALT 30, Alkaline Phosphatase 93, Total Protein 6.5, Albumin 3.6, Globulin 2.9, Albumin/Globulin Ratio 1.2 06/19/18 13:45: WBC 5.7, RBC 4.69, Hgb 14.4 D, Hct 42.4, MCV 90.4, MCH 30.7, MCHC 34.0, RDW 13.3, Plt Count 239, MPV 10.0, Gran % 75.2 H, Lymph % (Auto) 17.7 L, [place] % (Auto) 3.2, Eos % (Auto) 3.7, Baso % (Auto) 0.2, Gran # 4.25, Lymph # (Auto) 1.0 L, [place] # (Auto) 0.2, Eos # (Auto) 0.2, Baso # (Auto) 0.01 Vital Signs Temp Pulse Resp BP Pulse Ox 06/19/18 17:47 98.7 F 96 H 18 112/62 100 06/19/18 16:33 98.4 F 96 H 16 102/65 97 06/19/18 15:43 98.2 F 98 H 16 99/64 L 99 06/19/18 13:45 98.4 F 95 H 16 108/65 98 06/19/18 12:24 98.2 F 99 H 18 105/74 100 DSM 5 Symptoms Update: shortly pt is 37yo with reported h/o schizophrenia, h/o cocaine abuse, currently under care of [facility] PACT, h/o noncompliance with medications and follow up appts, pt has multiple psychiatric admissions, pt has tendency of signing herself out of the hospital AMA, pt was d/c from this unit last month, since that time pt was noncompliant with meds and follow up appts since last admission, pt relapsed on drugs. Pt was admitted for evaluation and stabilization of disorganized thoughts and behavior, psychosis, inability to function. In ED pt presented to be disheveled, pt required further evaluation and stabilization. pt was seen in her room, pt superficially presented well, pt said that she is ready to be discharged. pt still presented to be disorganized, but not agitated or aggressive. as per staff pt slept through the night, the other night pt was trying to go to other patients rooms, but not today. discussed with PACT team today, they will visit pt tomorrow. pt did not expressed any concerns that she was spit at (pt was delusional that somebody is sneaking into her room and spit at her). 06/20/18 was visited by PACT team, was agitated during the visit. so far patient tolerates medications well, no side effects observed or reported, aims 0, no EPS. Impression: Schizophrenia versus schizoaffective disorder Polysubstance abuse and dependence Substance-induced psychosis Medication Change: Yes (risperdal increased) Medical Record Reviewed: Yes Mental Status Examination - Cognitive Function Orientation: Person, Place Attention: Poor (some improvement) Concentration: Poor (some improvement) Association: Loose (baseline) Fund of Knowledge: Poor (baseline) - Mood Mood: Depressed ("I am good"), Anxious - Affect Affect: Flat (labile) - Formal Thought Process Formal Thought Process: Hallucinations (denied all weekend), Delusions (better), Paranoia (denied), Loosening of associations - Suicidal Ideation Suicidal Ideation: No - Homicidal Ideation Homicidal Ideation: No Goal/Treatment Plan - Goal/Treatment Plan Need for Continued Stay: Remain at risks for inpatient hospitalization, Severe depression anxiety, Discharge may exacerbated symptoms, Severe functional impairment Progress Toward Problem(s) and Goals/Treatment Plan: Milieu/structure/supportive therapy Medical consult would be considered Med management risperdal 1mg po bid and 2HS for psychosis nvega trinza was given 819mg on 05/26/18, next is due 08/18/18 Depakote 500mg po bid will f/u on depakote level 06/27/18 remeron 15mg hs for depression/insomnia PRN meds [facility] PACT involved, will visit pt 06/27/18 Family involvement Follow up on labs Will monitor closely Pt was educated about risk/benefits and alternatives of medications, coping strategies (safety plan, suicide prevention), relapse prevention, importance of follow up with psychiatrist and therapist, stay away from drugs/alcohol/smoking nutritional consult might be beneficial pt submitted 48hr notice 06/20/18, rescinded it 06/21/18 Estimated Date of D/C: 06/27/18
[2018-06-27] MEDS: Divalproex 500 mg DR(BID formulation) PO SCH (09:53)
--- NOTE | 2018-06-27 10:24 | PCM.PYCHDC ---
Mental Status Examination - Mental Status Examination Orientation: Person, Place, Situation Memory: Intact Mood: Neutral Affect: Other (neutral) Speech: Appropriate Attention: WNL Concentration: WNL Association: WNL Fund of Knowledge: WNL Formal Thought Process: No Impairment Description of patient's judgement and insight: Improved and fair I/J Psychotic Thoughts and Behaviors: Patient denied hallucinations. Delusions were not elicited. Paranoia was much improved and chronic Suicidal Ideation: No Current Homicidal Ideation?: No Discharge Summary - Discharge Note Reason for Hospitalization: shortly pt is 37yo with reported h/o schizophrenia, h/o cocaine abuse, [facility], h/o noncompliance with medications and follow up appts, pt has multiple psychiatric admissions, pt has tendency of signing herself out of the hospital AMA, pt was d/c from this unit last month, since that time pt was noncompliant with meds and follow up appts since last admission, pt relapsed on drugs. Pt was admitted for evaluation and stabilization of disorganized thoughts and behavior, psychosis, inability to fu nction. In ED pt presented to be disheveled, pt required further evaluation and stabilization. Psychiatric History (includes Medical, Family, Personal Hx): see HPI Laboratory Data: Laboratory Tests 06/19/18 06/19/18 06/19/18 13:45 14:15 14:15 WBC 5.7 RBC 4.69 Hgb 14.4 D Hct 42.4 MCV 90.4 MCH 30.7 MCHC 34.0 RDW 13.3 Plt Count 239 MPV 10.0 Gran % 75.2 H Lymph % (Auto) 17.7 L Wash[place] % (Auto) 3.2 Eos % (Auto) 3.7 Baso % (Auto) 0.2 Gran # 4.25 Lymph # (Auto) 1.0 L [place] # (Auto) 0.2 Eos # (Auto) 0.2 Baso # (Auto) 0.01 Sodium 141 Potassium 3.5 L Chloride 107 Carbon Dioxide 24 Anion Gap 13 BUN 10 Creatinine 0.7 Est GFR ( Amer) > 60 Est GFR (Non-Af Amer) > 60 Random Glucose 147 H Calcium 9.1 Total Bilirubin 0.4 AST 22 ALT 30 Alkaline Phosphatase 93 Total Protein 6.5 Albumin 3.6 Globulin 2.9 Albumin/Globulin Ratio 1.2 Triglycerides Cholesterol LDL Cholesterol Direct HDL Cholesterol Free T4 TSH 3rd Generation Urine Color Urine Appearance Urine pH Ur Specific Macy Urine Protein Urine Glucose (UA) Urine Ketones Urine Blood Urine Nitrate Urine Bilirubin Urine Urobilinogen Ur Leukocyte Esterase Urine RBC Urine WBC Ur Epithelial Cells Urine Bacteria Hyaline Casts Salicylates < 1 L Urine Opiates Screen Urine Methadone Screen Acetaminophen < 10.0 L Ur Barbiturates Screen Valproic Acid Ur Phencyclidine Scrn Ur Amphetamines Screen U Benzodiazepines Scrn U Oth Cocaine Metabols U Cannabinoids Screen Alcohol, Quantitative RPR 06/19/18 06/19/18 06/19/18 14:15 15:00 15:00 WBC RBC Hgb Hct MCV MCH MCHC RDW Plt Count MPV Gran % Lymph % (Auto) Washburn % (Auto) Eos % (Auto) Baso % (Auto) Gran # Lymph # (Auto) Washburn # (Auto) Eos # (Auto) Baso # (Auto) Sodium Potassium Chloride Carbon Dioxide Anion Gap BUN Creatinine Est GFR ( Amer) Est GFR (Non-Af Amer) Random Glucose Calcium Total Bilirubin AST ALT Alkaline Phosphatase Total Protein Albumin Globulin Albumin/Globulin Ratio Triglycerides Cholesterol LDL Cholesterol Direct HDL Cholesterol Free T4 TSH 3rd Generation Urine Color Yellow Urine Appearance Slight-cloudy Urine pH 6.0 Ur Specific Macy >= 1.030 Urine Protein 30 H Urine Glucose (UA) Negative Urine Ketones Trace H Urine Blood Small H Urine Nitrate Negative Urine Bilirubin Small H Urine Urobilinogen 1.0 H Ur Leukocyte Esterase Negative Urine RBC 10 - 15 Urine WBC 2 - 5 Ur Epithelial Cells 10 - 12 Urine Bacteria Mod Hyaline Casts 0 - 2 Salicylates Urine Opiates Screen Negative Urine Methadone Screen Negative Acetaminophen Ur Barbiturates Screen Negative Valproic Acid Ur Phencyclidine Scrn Negative Ur Amphetamines Screen Negative U Benzodiazepines Scrn Negative U Oth Cocaine Metabols Positive H U Cannabinoids Screen Negative Alcohol, Quantitative < 10 RPR 06/20/18 06/20/18 06/20/18 07:55 07:55 07:55 WBC RBC Hgb Hct MCV MCH MCHC RDW Plt Count MPV Gran % Lymph % (Auto) Washburn % (Auto) Eos % (Auto) Baso % (Auto) Gran # Lymph # (Auto) Washburn # (Auto) Eos # (Auto) Baso # (Auto) Sodium Potassium Chloride Carbon Dioxide Anion Gap BUN Creatinine Est GFR ( Amer) Est GFR (Non-Af Amer) Random Glucose Calcium Total Bilirubin AST ALT Alkaline Phosphatase Total Protein Albumin Globulin Albumin/Globulin Ratio Triglycerides 28 L Cholesterol 110 L LDL Cholesterol Direct 64 HDL Cholesterol 46 Free T4 0.66 L TSH 3rd Generation 0.56 Urine Color Urine Appearance Urine pH Ur Specific Macy Urine Protein Urine Glucose (UA) Urine Ketones Urine Blood Urine Nitrate Urine Bilirubin Urine Urobilinogen Ur Leukocyte Esterase Urine RBC Urine WBC Ur Epithelial Cells Urine Bacteria Hyaline Casts Salicylates Urine Opiates Screen Urine Methadone Screen Acetaminophen Ur Barbiturates Screen Valproic Acid Ur Phencyclidine Scrn Ur Amphetamines Screen U Benzodiazepines Scrn U Oth Cocaine Metabols U Cannabinoids Screen Alcohol, Quantitative RPR Nonreactive 06/20/18 07:55 WBC RBC Hgb Hct MCV MCH MCHC RDW Plt Count MPV Gran % Lymph % (Auto) [place] % (Auto) Eos % (Auto) Baso % (Auto) Gran # Lymph # (Auto) [place] # (Auto) Eos # (Auto) Baso # (Auto) Sodium Potassium Chloride Carbon Dioxide Anion Gap BUN Creatinine Est GFR ( Amer) Est GFR (Non-Af Amer) Random Glucose Calcium Total Bilirubin AST ALT Alkaline Phosphatase Total Protein Albumin Globulin Albumin/Globulin Ratio Triglycerides Cholesterol LDL Cholesterol Direct HDL Cholesterol Free T4 TSH 3rd Generation Urine Color Urine Appearance Urine pH Ur Specific Macy Urine Protein Urine Glucose (UA) Urine Ketones Urine Blood Urine Nitrate Urine Bilirubin Urine Urobilinogen Ur Leukocyte Esterase Urine RBC Urine WBC Ur Epithelial Cells Urine Bacteria Hyaline Casts Salicylates Urine Opiates Screen Urine Methadone Screen Acetaminophen Ur Barbiturates Screen Valproic Acid < 10 L Ur Phencyclidine Scrn Ur Amphetamines Screen U Benzodiazepines Scrn U Oth Cocaine Metabols U Cannabinoids Screen Alcohol, Quantitative RPR Consultations:: List each consultation separately and include: 1. Reason for request. 2. Findings. 3. Follow-up Consultations: none Summary of Hospital Course include:: 1. Description of specific treatment plan utilized for patients during their course of treatmen. 2. Summarize the time- course for resolution of acute symptoms and/or regressed behaviors. 3. Describe issues identified and worked on during hospitalization. 4. Describe medication utilized. 5. Describe medical problems identified and treated. 6. Reassessment of suicide risk Summary of Hospital Course: shortly pt is 37yo with reported h/o schizophrenia, h/o cocaine abuse, [facility], h/o noncompliance with medications and follow up appts, pt has multiple psychiatric admissions, pt has tendency of signing herself out of the hospital AMA, pt was d/c from this unit last month, since that time pt was noncompliant with meds and follow up appts since last admission, pt relapsed on drugs. Pt was admitted for evaluation and stabilization of disorganized thoughts and behavior, psychosis, inability to function. In ED pt presented to be disheveled, pt required further evaluation and stabilization. pt was seen in her room, pt superficially presented well, pt said that she is ready to be discharged. pt still presented to be disorganized, but not agitated or aggressive. as per staff pt slept through the night, the other night pt was trying to go to other patients rooms, but not today. discussed with PACT team today, they will visit pt tomorrow. pt did not expressed any concerns that she was spit at (pt was delusional that somebody is sneaking into her room and spit at her). 06/20/18 was visited by PACT team, was agitated during the visit. so far patient tolerates medications well, no side effects observed or reported, aims 0, no EPS. DISCHARGE NOTE BY DR. DELGADO 06/27/18 I interviewed patient at bedside to assess stability for discharge. Patient is alert and well-oriented to month, year and circumstances. Eye contact is fair. Patient feels improved and denies any suicidal thoughts or thoughts to harm others. Affect is calm and appropriately reactive. Patient denies hallucinations and is not responding to internal stimuli. Thought process is clear and coherent. Patient feels comfortable with discharge today and denies any new concerns. Denies acute discomfort or pain. Tolerating medications and denies any issues with them. Delusions were not elicited on day of discharge. Paranoia was much improved though still present, it is a chronic element to patient's functional presentation. - Final Diagnosis (DSM 5) Condition upon Discharge: FAIR DSM 5: Schizophrenia versus schizoaffective disorder Polysubstance abuse and dependence Substance-induced psychosis Disposition: HOME/ ROUTINE Follow-up Treatment Plan: * Please refer to SW note for f/u plan and nursing notes for rx provided by Dr. Millan Prescriptions/Medication Reconciliation: Benztropine [Cogentin] 1 mg PO AMHS #30 tab Divalproex [Depakote DR(*BID*)] 500 mg PO BID #30 tcp Mirtazapine [Remeron] 15 mg PO HS #14 tab risperiDONE [RisperDAL Tab] 1 mg PO BID #30 tab risperiDONE [RisperDAL Tab] 2 mg PO HS #14 tab - Smoking Cessation Smoking Cessation Medication prescribed: No Reason for not providing: Patient smokes 1 PPD and not receptive to counseling
== END 2018-06-27 12:10 | disposition home or self-care (01) | DRG 885 ==
LOC: ED 12:23 → ERH 15:35 → PSYC 16:58 → ERH 06-24 13:36 → PSYC 06-24 15:14
PROVIDERS: ADMIT Psychiatry & Neurology Psychiatry; ATTEND Psychiatry & Neurology Psychiatry
DX: F20.9 Schizophrenia, unspecified (principal); F14.151 Cocaine abuse with cocaine-induced psychotic disorder with hallucinations; F32.89 Other specified depressive episodes; E03.9 Hypothyroidism, unspecified; F17.210 Nicotine dependence, cigarettes, uncomplicated; F60.0 Paranoid personality disorder; G47.00 Insomnia, unspecified; Z91.14 Patient's other noncompliance with medication regimen; Z59.0 Homelessness

== ENCOUNTER 2018-08-15 01:01 | Inpatient (IN) | payer MEDICARE, MEDICAID ==
[2018-08-15 01:01] VITALS: BMI 19.8
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
[2018-08-15 01:52] LABS: URINE BILIRUBIN NEGATIVE (NEGATIVE); URINE BLOOD LARGE (NEGATIVE); URINE GLUCOSE (UA) NEGATIVE (NEGATIVE); URINE LEUKOCYTE ESTERASE NEGATIVE Leu/uL (NEGATIVE); URINE PROTEIN 100 mg/dL (<30 mg/dL); URINE UROBILINOGEN 0.2 E.U./dL (<1 E.U./dL)
[2018-08-15 01:53] LABS: HEMOGLOBIN 13.6 g/dL (12.0-16.0); MEAN CELL VOLUME 91.7 fl (80.0-105.0); MEAN CORPUSCULAR HEMOGLOBIN 30.4 pg (25.0-35.0); MEAN CORPUSCULAR HGB CONC 33.1 g/dl (31.0-37.0); MEAN PLATELET VOLUME 9.5 fl (7.0-11.0); RBC 4.48 10^6/uL (3.5-6.1); RED CELL DISTRIBUTION WIDTH 12.9 % (11.5-14.5); WHITE BLOOD COUNT 6.7 10^3/uL (4.5-11.0)
[2018-08-15 01:54] LABS: URINE APPEARANCE SL CLOUDY (CLEAR); URINE COLOR YELLOW (YELLOW)
[2018-08-15 01:56] LABS: ALB/GLOB RATIO 1.4 (1.1-1.8); ALBUMIN 4.4 g/dL (3.0-4.8); ALT/SGPT 29 U/L (7-56); AST/SGOT 26 U/L (14-36); BLOOD UREA NITROGEN 15 mg/dL (7-21); CALCIUM 9.3 mg/dL (8.4-10.5); GFR NON-AFRICAN AMERICAN > 60
[2018-08-15 02:04] LABS: URINE AMORPHOUS SEDIMENT FEW /hpf; URINE BACTERIA SMALL /hpf
[2018-08-15 03:07] LABS: BARBITURATES, UR NEGATIVE (NEGATIVE)
[2018-08-15 03:15] LABS: BENZODIAZEPINES, UR NEGATIVE (NEGATIVE); OPIATES, UR NEGATIVE (NEGATIVE); PHENCYCLIDINE, UR NEGATIVE (NEGATIVE)
[2018-08-15 05:12] VITALS: O2SAT 98
[2018-08-15 05:58] VITALS: RESP 20
--- NOTE | 2018-08-15 06:06 | PCM.BM ---
<Karen Cabral - Last Filed: 08/15/18 06:02> Treatment Plan Problems - Problems identified on initial assessmt ALTERED THOUGHT PROCESS Date Initiated: 08/15/18 Time Initiated: 06:00 Assessment reference: NA Status: Active Priority: 1 AUDITORY HALLUCINATION Date Initiated: 08/15/18 Time Initiated: 06:00 Assessment reference: NA Status: Active Priority: 2 SUBSTANCE ABUSE Date Initiated: 08/15/18 Time Initiated: 06:00 Assessment reference: NA Status: Active Priority: 3 MEDICATION NON ADHERENCE Date Initiated: 08/15/18 Time Initiated: 18:00 Assessment reference: NA Priority: 4 SSELF CARE DEFICIT Date Initiated: 08/15/18 Time Initiated: 06:00 Assessment reference: NA Status: Active Priority: 5 Treatment assets and liabiliti Patient Assests: cooperative, self-reliant, ADL independent, negotiates basic needs, cognitively intact Patient Liabilities: live alone, financial problems, poor support system, relationship conflicts, substance abuse - Milieu Protocol Maintain good personal hygiene: every other day Encourage regular showers, every shift Remind patient to perform daily oral care, every shift Assist patient to perform ADL's Maintain personal safety: every shift Educate patient to report safety concerns to staff, every shift Monitor environment for contraband/sharps Medication safety: Monitor for expected outcome, potential side effects: every shift, Assess barriers to learning: every shift, Assess readiness for medication education: every shift Family Contact Family involvement: Family/SO is involved Family contact: Patient agrees to contact Discharge/Continuing Care - Education Needs Education Needs: Patient Medication, Patient Diagnosis/Disease Process, Patient Coping Skills, Patient Placement options, Patient Community resources, Patient Activities of Daily Living, Patient Nutrition, Patient Uses of Medical Equipment, Patient Health Practices/Safety, Patient Personal Hygiene/Grooming, Patient Aftercare Safety Plan - Discharge Discharge Criteria: Tolerates medication w/o severe side effects, Free of Homicidal thoughts, Free of paranoid thoughts, Ability to care for self <Ivy Millan - Last Filed: 08/15/18 14:15> - Diagnosis (1) Schizophrenia Status: Chronic Interventions: 08/15/18 08:33 Psychoeducation/psychotherapy Psychopharmacology/adjustment of medications as needed/ monitoring possible side effects Evaluate pt on daily basis Compliance with medications and follow up appointments Long acting medication if pt is noncompliant with pill form Suicide and homicide risk assessment and prevention, coping strategies, safety plan Relapse prevention Reduction of symptoms Improve functional status Possible assertive community treatment Cognitive behavioral therapy Family involvement Possible social skill training as outpatient (2) Cocaine abuse Status: Chronic Interventions: 08/15/18 08:34 Maintaining sobriety Relapse prevention Possible rehabilitation Motivational interviewing 12-step programs: AA meetings <Duyen Barnett - Last Filed: 08/15/18 16:12> Family Contact Family involvement: Famliy/SO not involved - Outside Agency [facility] Care involvment: Information-sharing Agency contact name: [facility]
[2018-08-15 07:12] VITALS: TEMP 99.3
[2018-08-15 07:22] LABS: GLUCOSE,FASTING 68 mg/dL (65-110); HDL CHOLESTEROL 50 mg/dL (29-60)
[2018-08-15 07:33] LABS: LDL CHOLESTEROL 66 mg/dL (0-129)
[2018-08-15] MEDS: Divalproex 500 mg DR(BID formulation) PO SCH ×2 (09:10→22:30)
--- NOTE | 2018-08-15 12:44 | RAD ---
HISTORY: medical clearance COMPARISON: Chest x-ray performed 06/19/18 TECHNIQUE: Chest, one view. FINDINGS: LUNGS: No focal consolidation. Please note that chest x-ray has limited sensitivity for the detection of pulmonary masses. PLEURA: No significant pleural effusion identified. No definite pneumothorax . CARDIOVASCULAR: Heart size appears within normal limits. Atherosclerotic calcifications. OSSEOUS STRUCTURES: No acute osseous abnormality identified. VISUALIZED UPPER ABDOMEN: Unremarkable. OTHER FINDINGS: None. IMPRESSION: No focal consolidation.
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
--- NOTE | 2018-08-15 19:00 | CARD ---
APPROVED REPORT Date of service: 08/15/2018 EKG Measurement Heart [id number] <Conclusion> Normal sinus rhythm Normal ECG
[2018-08-16] MEDS: Divalproex 500 mg DR(BID formulation) PO SCH ×2 (09:46→21:31)
--- NOTE | 2018-08-16 14:55 | PCM.PYCHPN ---
Psychiatric Progress Note - Psychiatric Progress Note Patient seen today, length of contact: 30 minutes Patient Chief Complaint: "I am very scared, wires everywhere, people are watching at me...." Problems Identified/Issues Discussed: Suicide/ homicide prevention, past psychiatric h/o, current psychiatric symptoms, medical problems, risk/benefits and alternatives of medications, medications compliance, coping strategies, substance abuse h/o, relapse prevention, importance of follow up with psychiatrist and therapist, discharge plan. Medical Problems: pt c/o BL knee pain and "burning and locking" Diagnostic Results: 08/15/18 01:36 08/15/18 01:36 Lab Results 08/15/18 01:36: Valproic Acid < 10 L 08/15/18 01:36: RPR Nonreactive 08/15/18 01:36: TSH 3rd Generation 1.71 08/15/18 01:36: Fasting Glucose 68, Triglycerides 32 L, Cholesterol 122 L, LDL Cholesterol Direct 66, HDL Cholesterol 50 08/15/18 01:36: WBC 6.7, RBC 4.48, Hgb 13.6, Hct 41.1, MCV 91.7, MCH 30.4, MCHC 33.1, RDW 12.9, Plt Count 240, MPV 9.5 08/15/18 01:36: Sodium 138, Potassium 3.9, Chloride 105, Carbon Dioxide 25, Anion Gap 11, BUN 15, Creatinine 0.8, Est GFR ( Amer) > 60, Est GFR (Non- Af Amer) > 60, Random Glucose 67 L, Calcium 9.3, Total Bilirubin 0.4, AST 26, ALT 29, Alkaline Phosphatase 67, Total Protein 7.5, Albumin 4.4, Globulin 3.1, Albumin/Globulin Ratio 1.4 08/15/18 01:36: Urine Color Yellow, Urine Appearance Sl cloudy, Urine pH 6.0, Ur Specific [place] >= 1.030, Urine Protein 100 H, Urine Glucose (UA) Negative, Urine Ketones Negative, Urine Blood Large H, Urine Nitrate Negative, Urine Bilirubin Negative, Urine Urobilinogen 0.2, Ur Leukocyte Esterase Negative, Urine RBC 2 - 5 H, Urine WBC 1 - 3, Ur Epithelial Cells 3 - 4, Amorphous Sed iment Few, Urine Bacteria Small 08/15/18 01:36: Alcohol, Quantitative < 10 08/15/18 00:01: Urine Opiates Screen Negative, Urine Methadone Screen Negative, Ur Barbiturates Screen Negative, Ur Phencyclidine Scrn Negative, Ur Amphetamines Screen Negative, U Benzodiazepines Scrn Negative, U Oth Cocaine Metabols Positive H, U Cannabinoids Screen Negative Vital Signs Temp Pulse Resp BP Pulse Ox 08/15/18 07:11 99.3 F 95 H 20 114/71 08/15/18 05:42 97.8 F 95 H 20 114/71 08/15/18 05:10 98.2 F 71 17 110/68 98 08/15/18 02:01 98.2 F 68 18 109/62 96 DSM 5 Symptoms Update: shortly pt is 37yo with reported h/o schizophrenia, h/o cocaine abuse, currently under care of [facility], h/o noncompliance with medications and follow up appts, pt has multiple psychiatric admissions, pt has tendency of signing herself out of the hospital AMA, pt was d/c from this unit on June 2018, since that time pt was noncompliant with meds and follow up appts since last admission, pt relapsed on drugs, as per ER documentation patient smoked about $ 100 worth of cocaine, in the emergency room patient presented to be disorganized, paranoid, patient also was verbalizing thoughts of harming herself, reported command type hallucinations, patient requires further evaluation and stabilization and medications adjustment. Patient was seen today in her room, hygiene is very poor, patient presented to be disorganized, paranoid, patient said that "wires everywhere", there is no fires anywhere, patient also complained that she is hearing voices "bad voices" and paranoia that "people are watching me", patient reported that she has bilateral knee pain and she feels "burning and pain in my both knees, it is kind of locked", medical team was contacted.. As per staff patient is seclusive, staying in bed all day long, cover herself with a blanket, not participating in unit activities, easily agitated and aggravated, impulses are unpredictable. Patient was visited by PACT team today, [facility] is no long have services by PACT, she signed a form discontiuing services bacause she was noncompliant for 12 months and no progress made. injection for Invega trinza and depotprovera were brought in, due date August,. So far patient tolerates medications well, no side effects observed or reported, aims 0, no EPS. Impression: As per history, schizophrenia Stimulants use disorder Substance-induced psychosis Medication Change: Yes (Risperdal increased) Medical Record Reviewed: Yes Consults ordered or reviewed: Medical consult was called for bilateral knee pain. Mental Status Examination - Cognitive Function Orientation: Person, Place, Situation Memory: Impaired Attention: Poor Concentration: Poor Association: Loose - Mood Mood: Depressed, Anxious - Affect Affect: Flat - Formal Thought Process Formal Thought Process: Hallucinations, Delusions, Paranoia, Loosening of asso ciations, Circumstantial - Suicidal Ideation Suicidal Ideation: No - Homicidal Ideation Homicidal Ideation: No Goal/Treatment Plan - Goal/Treatment Plan Need for Continued Stay: Remain at risks for inpatient hospitalization, Severe depression anxiety, Discharge may exacerbated symptoms, Failed transitioning, Severe functional impairment Progress Toward Problem(s) and Goals/Treatment Plan: Milieu/structure/supportive therapy Medical consult was called SW consultation for discharge plan and social issues Med management Risperdal 1 mg 3 times a day for psychosis PRN meds Invega trinza due for 08/24/18 Family involvement, pt has no family Follow up on labs Will monitor closely Pt was educated about risk/benefits and alternatives of medications, coping strategies (safety plan, suicide prevention), relapse prevention, importance of follow up with psychiatrist and therapist, stay away from drugs/alcohol/smoking Estimated Date of D/C: 08/24/18
--- NOTE | 2018-08-17 13:02 | PCM.PYCHPN ---
Psychiatric Progress Note - Psychiatric Progress Note Patient seen today, length of contact: 30 minutes Patient Chief Complaint: "I still hear voices, the same voices, it is scary" Problems Identified/Issues Discussed: Suicide/ homicide prevention, past psychiatric h/o, current psychiatric symptoms, medical problems, risk/benefits and alternatives of medications, medications compliance, coping strategies, substance abuse h/o, relapse prevention, importance of follow up with psychiatrist and therapist, discharge plan. Medical Problems: pt c/o BL knee pain and "burning and locking" Diagnostic Results: 08/15/18 01:36 08/15/18 01:36 Lab Results 08/15/18 01:36: Valproic Acid < 10 L 08/15/18 01:36: RPR Nonreactive 08/15/18 01:36: TSH 3rd Generation 1.71 08/15/18 01:36: Fasting Glucose 68, Triglycerides 32 L, Cholesterol 122 L, LDL Cholesterol Direct 66, HDL Cholesterol 50 08/15/18 01:36: WBC 6.7, RBC 4.48, Hgb 13.6, Hct 41.1, MCV 91.7, MCH 30.4, MCHC 33.1, RDW 12.9, Plt Count 240, MPV 9.5 08/15/18 01:36: Sodium 138, Potassium 3.9, Chloride 105, Carbon Dioxide 25, Anion Gap 11, BUN 15, Creatinine 0.8, Est GFR ( Amer) > 60, Est GFR (Non- Af Amer) > 60, Random Glucose 67 L, Calcium 9.3, Total Bilirubin 0.4, AST 26, ALT 29, Alkaline Phosphatase 67, Total Protein 7.5, Albumin 4.4, Globulin 3.1, Albumin/Globulin Ratio 1.4 08/15/18 01:36: Urine Color Yellow, Urine Appearance Sl cloudy, Urine pH 6.0, Ur Specific [place] >= 1.030, Urine Protein 100 H, Urine Glucose (UA) Negative, Urine Ketones Negative, Urine Blood Large H, Urine Nitrate Negative, Urine Bilirubin Negative, Urine Urobilinogen 0.2, Ur Leukocyte Esterase Negative, Urin e RBC 2 - 5 H, Urine WBC 1 - 3, Ur Epithelial Cells 3 - 4, Amorphous Sediment Few, Urine Bacteria Small 08/15/18 01:36: Alcohol, Quantitative < 10 08/15/18 00:01: Urine Opiates Screen Negative, Urine Methadone Screen Negative, Ur Barbiturates Screen Negative, Ur Phencyclidine Scrn Negative, Ur Amphetamines Screen Negative, U Benzodiazepines Scrn Negative, U Oth Cocaine Metabols Positive H, U Cannabinoids Screen Negative Vital Signs Temp Pulse Resp BP Pulse Ox 08/15/18 07:11 99.3 F 95 H 20 114/71 08/15/18 05:42 97.8 F 95 H 20 114/71 08/15/18 05:10 98.2 F 71 17 110/68 98 08/15/18 02:01 98.2 F 68 18 109/62 96 DSM 5 Symptoms Update: shortly pt is 37yo with reported h/o schizophrenia, h/o cocaine abuse, currently under care of [facility] PACT, h/o noncompliance with medications and follow up appts, pt has multiple psychiatric admissions, pt has tendency of signing herself out of the hospital AMA, pt was d/c from this unit on June 2018, since that time pt was noncompliant with meds and follow up appts since last admission, pt relapsed on drugs, as per ER documentation patient smoked about $100 worth of cocaine, in the emergency room patient presented to be disorganized, paranoid, patient also was verbalizing thoughts of harming herself, reported command type hallucinations, patient requires further ulises luation and stabilization and medications adjustment. Patient was seen today in her room, hygiene is very poor, patient presented to be disorganized, paranoid, patient said that "wires everywhere", there is no wires anywhere, patient also complained that she is hearing voices "bad voices, the same voices, I feel numb" and paranoia that "people are watching me", patient reported that she has bilateral knee pain and she feels "burning and pain in my both knees, it is kind of locked", medical team was contacted, Dr. Nash evaluated patient today at the morning time. As per staff patient is seclusive, staying in bed all day long, cover herself with a blanket, not participating in unit activities, easily agitated and aggravated, impulses are unpredictable. Patient was visited by PACT team 08/16/18, [facility] is no long have services by PACT, she signed a form discontiuing services bacause she was noncompliant for 12 months and no progress made. injection for Invega trinza and depotprovera w ere brought in, due date August,. So far patient tolerates medications well, no side effects observed or reported, aims 0, no EPS. Impression: As per history, schizophrenia Stimulants use disorder Substance-induced psychosis Medication Change: No ( ) Medical Record Reviewed: Yes Mental Status Examination - Cognitive Function Orientation: Person, Place, Situation Memory: Impaired Attention: Poor Concentration: Poor Association: Loose - Mood Mood: Depressed, Anxious - Affect Affect: Flat - Formal Thought Process Formal Thought Process: Hallucinations ("I hear voices, the same voices, it is scary), Delusions, Paranoia, Loosening of associations, Circumstantial - Suicidal Ideation Suicidal Ideation: No - Homicidal Ideation Homicidal Ideation: No Goal/Treatment Plan - Goal/Treatment Plan Need for Continued Stay: Remain at risks for inpatient hospitalization, Severe depression anxiety, Discharge may exacerbated symptoms, Failed transitioning, Severe functional impairment Progress Toward Problem(s) and Goals/Treatment Plan: Milieu/structure/supportive therapy Medical consult was called SW consultation for discharge plan and social issues Med management Risperdal 1 mg 3 times a day for psychosis PRN meds Invega trinza due for 08/24/18 Family involvement, pt has no family Follow up on labs Will monitor closely Pt was educated about risk/benefits and alternatives of medications, coping strategies (safety plan, suicide prevention), relapse prevention, importance of follow up with psychiatrist and therapist, stay away from drugs/alcohol/smoking Patient was discharged from [facility] PACT team due to lack of progress, noncompliance [facility] brought Invega and depotprovera injections which are due on August 24. Estimated Date of D/C: 08/24/18
[2018-08-17] MEDS: Divalproex 500 mg DR(BID formulation) PO SCH ×2 (17:25→22:07)
[2018-08-17 18:34] VITALS: BP 96/63; PULSE 118
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
[2018-08-18] MEDS: Divalproex 500 mg DR(BID formulation) PO SCH ×2 (09:03→22:18)
--- NOTE | 2018-08-18 09:47 | PCM.PYCHPN ---
Psychiatric Progress Note - Psychiatric Progress Note Patient seen today, length of contact: 30 minutes Problems Identified/Issues Discussed: I reviewed assessment and recent notes. I met with patient at bedside. She is well known to this provider from her multiple admissions to this unit. She has been anxious, fearful, paranoid and delusional, similar to her prior presentations. Appears preoccupied and guarded though she reports "feeling fine". Affect is flat and disengaged. Patient denies AVH. Patient denies any new discomfort, pain or s/e and doesn't appear to be in any physical distress but does appear to be in some mental distress due to her psychotic symptoms. She is not interactive or related enough to tolerate discharge into the community. Staff have noted that patient has been reclusive with minimal socialization. There have been no major behavioral issues on the unit thus far. Diagnostic Results: As per history, schizophrenia Stimulants use disorder Substance-induced psychosis Medication Change: No ( ) Medical Record Reviewed: Yes Mental Status Examination - Cognitive Function Orientation: Person, Place, Situation Memory: Impaired Attention: Poor Concentration: Poor Association: Loose - Mood Mood: Depressed, Anxious - Affect Affect: Flat - Formal Thought Process Formal Thought Process: Hallucinations ("I hear voices, the same voices, it is scary), Delusions, Paranoia, Loosening of associations, Circumstantial - Suicidal Ideation Suicidal Ideation: No - Homicidal Ideation Homicidal Ideation: No Goal/Treatment Plan - Goal/Treatment Plan Need for Continued Stay: Remain at risks for inpatient hospitalization, Severe depression anxiety, Discharge may exacerbated symptoms, Failed transitioning, Severe functional impairment Progress Toward Problem(s) and Goals/Treatment Plan: * c/w current tx and plan * Vitals reviewed and noted below: Selected Entries 08/15/18 08/16/18 08/17/18 07:11 16:00 16:00 Temperature 99.3 F Pulse Rate 95 H 79 118 H Respiratory 20 Rate Blood Pressure 114/71 112/82 96/63 L * No new weekend lab results thus far. Estimated Date of D/C: 08/24/18
--- NOTE | 2018-08-18 10:23 | PN ---
DATE: 08/18/2018 SUBJECTIVE: I saw her in her room in her bed in the psychiatric floor. She is very sleepy. She is on Ativan, Benadryl, Cogentin, Depakote, Haldol, Risperdal. She did not even wanted to talk with me. She is wanting to go and stay sleep. PHYSICAL EXAMINATION: VITAL SIGNS: Temperature 99.3; 118, pulse, is down to 79; 96/63 blood pressure, also 112/82 blood pressure; 20 respiratory rate. HEAD: Atraumatic, normocephalic. HEART: Regular rate. LUNGS: Clear to auscultation. EXTREMITIES: No edema. LABORATORY DATA: She has a 6.7 white count, 30.6 hemoglobin, 240 platelets. Sodium 138, potassium 3.9, BUN 15, creatinine 0.8, GFR is greater than 60. Last blood sugar was 68, calcium 9.3, total bili is 0.4, AST is 26, ALT is 29, alk phos 57, triglycerides are 32, cholesterol is 122. TSH is 1.71. Urine was negative. There was large blood, positive for cocaine. RPR is nonreactive. RECOMMENDATIONS: She looks a bit lethargic this morning. Psychiatry is seeing her. She tells psychiatrist she is still hearing voices. She has hallucinations, history of schizophrenia, cocaine abuse, noncompliance with her medications. Continue with medications, encouragement to participate and eat her diet. I will repeat a blood test for tomorrow. Continue with aggressive treatment and care as per Psychiatry. We will follow. Freeman Nash DO
[2018-08-19] MEDS: Divalproex 500 mg DR(BID formulation) PO SCH ×2 (09:36→22:08)
--- NOTE | 2018-08-19 09:45 | PCM.PYCHPN ---
Psychiatric Progress Note - Psychiatric Progress Note Patient seen today, length of contact: 30 minutes Problems Identified/Issues Discussed: I reviewed recent notes and met with patient at bedside at her room. She is well known to this provider from her multiple admissions to this unit. She has been anxious, fearful, paranoid and delusional, similar to her prior presentations. Appears preoccupied and guarded during my questioning. She tells she wants to go home because she is scared, her affect is flat and irritable. Patient denies AVH. Patient denies any new discomfort, pain or s/e and doesn't appear to be in any physical distress but does appear to be in mental distress due to her psychotic symptoms. Patient placed her mattress in front of her door and barricaded herself in her room this morning. She is paranoid about others disturbing and watching her overnight. Patient did readily agree to move her mattress back to the bed when I informed her that this was against unit rules. Staff have noted that patient has been reclusive with minimal socialization. She doesn't attend groups and eats by herself. There have been no major behavioral issues on the unit thus far however patient is not organized or related enough to tolerate discharge into the community. Diagnostic Results: As per history, schizophrenia Stimulants use disorder Substance-induced psychosis Medication Change: Yes (Increased Risperdal to 1 mg bid and 2 mg HS) Medical Record Reviewed: Yes Mental Status Examination - Cognitive Function Orientation: Person, Place, Situation Memory: Impaired Attention: Poor Concentration: Poor Association: Loose - Mood Mood: Depressed, Anxious - Affect Affect: Flat - Formal Thought Process Formal Thought Process: Hallucinations ("I hear voices, the same voices, it is scary), Delusions, Paranoia, Loosening of associations, Circumstantial - Suicidal Ideation Suicidal Ideation: No - Homicidal Ideation Homicidal Ideation: No Goal/Treatment Plan - Goal/Treatment Plan Need for Continued Stay: Remain at risks for inpatient hospitalization, Severe depression anxiety, Discharge may exacerbated symptoms, Failed transitioning, Severe functional impairment Progress Toward Problem(s) and Goals/Treatment Plan: * c/w current tx and plan * Appreciate f/u by Dr. Nash on 08/18/18~to repeat labs * Increased Risperdal to 1 mg bid and 2 mg HS on 08/19/18 for continued paranoia and disorganization * Vitals reviewed and noted below: Selected Entries 08/15/18 08/16/18 08/17/18 07:11 16:00 16:00 Temperature 99.3 F Pulse Rate 95 H 79 118 H Respiratory 20 Rate Blood Pressure 114/71 112/82 96/63 L * No new weekend lab results thus far. Estimated Date of D/C: 08/24/18
[2018-08-19 10:21] LABS: HEMOGLOBIN 13.5 g/dL (12.0-16.0); MEAN CELL VOLUME 91.5 fl (80.0-105.0); MEAN CORPUSCULAR HEMOGLOBIN 30.1 pg (25.0-35.0); MEAN CORPUSCULAR HGB CONC 32.8 g/dl (31.0-37.0); MEAN PLATELET VOLUME 9.5 fl (7.0-11.0); RBC 4.49 10^6/uL (3.5-6.1); RED CELL DISTRIBUTION WIDTH 12.7 % (11.5-14.5); WHITE BLOOD COUNT 5.9 10^3/uL (4.5-11.0)
[2018-08-19 10:32] LABS: ALB/GLOB RATIO 1.3 (1.1-1.8); ALT/SGPT 26 U/L (7-56); AST/SGOT 17 U/L (14-36); BLOOD UREA NITROGEN 15 mg/dL (7-21); CALCIUM 9.6 mg/dL (8.4-10.5); GFR NON-AFRICAN AMERICAN > 60
--- NOTE | 2018-08-19 13:09 | PN ---
DATE: 08/19/2018 SUBJECTIVE: I saw her in the psychiatric floor. She is in bed. She ate her breakfast. She is comfortable. She is feeling a little bit better. She is taking her medications. She is eating well, walking in the floor as well. She has been in and out of the psychiatric floor for a while. She is anxious, fearful, paranoid and delusional, hallucinations. She also has a drug issue. She is on cocaine and she has schizoaffective disorder, but she feels a little bit better this morning. PHYSICAL EXAMINATION: VITAL SIGNS: She has a 99.3 temperature, 79 pulse, 112/82 blood pressure, 20 respiratory rate. HEAD: Atraumatic, normocephalic. HEART: Regular rate. LUNGS: Decreased breath sounds but clear. ABDOMEN: Soft. EXTREMITIES: No edema. LABORATORY DATA: Last blood tests were 5.9 white count, 13.5 hemoglobin, 41.1 hematocrit with 210 platelets. Sodium 141, potassium 4.1, BUN 15, creatinine 0.9, GFR is greater than 60, sugar is 101, calcium is 9.6, total bili is 0.4, AST is 17, ALT is 26, alk phos 77, total protein 7.1. The TSH is 1.71. Urine was clean. Toxicology showed positive for cocaine. RPR is nonreactive. RECOMMENDATIONS: I discussed no more drugs with her. Continue with the medications as per Psychiatry, Ativan, Benadryl, Cogentin, Depakote, Haldol, Risperdal. Hopefully, she will continue to improve, follow medically. Freeman Nash DO
[2018-08-20] MEDS: Divalproex 500 mg DR(BID formulation) PO SCH ×2 (09:20→21:45)
--- NOTE | 2018-08-20 13:10 | PN ---
DATE: 08/20/2018 SUBJECTIVE: I saw her sleeping in the psychiatric floor, easily arousable, good spirits, is eating well, trying to participate, tells me she is feeling a little bit better. She is on Ativan, Benadryl, Cogentin, Depakote, Haldol, and Risperdal. PHYSICAL EXAMINATION: VITAL SIGNS: Temperature 99.3; 118 pulse, down to 79 pulse; 96/63 blood pressure 20 respiratory rate. HEAD: Atraumatic, normocephalic. HEART: Regular rate. LUNGS: Decreased breath sounds. ABDOMEN: Soft. EXTREMITIES: No edema. MEDICATIONS: She is on Ativan, Benadryl, Cogentin, Depakote, Haldol, and Risperdal. LABORATORY DATA: Last labs on 08/19/2018, she had 5.9 white count, 13.5 hemoglobin, 41.1 hematocrit with 210 platelets. Sodium 141, potassium 4.1, BUN 50, creatinine 0.9, GFR greater than 60, sugar is 101, calcium 9.6, total bili is 0.4, AST 17, ALT is 26, alk phos 77, total protein 7.1. Cholesterol 122. TSH is 1.71. Urine showed large blood, small bacteria. She was positive for cocaine. Negative RPR. RECOMMENDATIONS: We will continue medically to follow. She had multiple issues for coming in. Cocaine abuse, schizoaffective disorder, visual and auditory hallucinations. We will continue to follow medically. Encouragement to take her medications, participate in groups and eat. Freeman Nash DO MTDJesus
--- NOTE | 2018-08-20 15:26 | PCM.PYCHPN ---
Psychiatric Progress Note - Psychiatric Progress Note Patient seen today, length of contact: 30 minutes Patient Chief Complaint: "when I will be discharged?" Problems Identified/Issues Discussed: Suicide/ homicide prevention, past psychiatric h/o, current psychiatric sympto ms, medical problems, risk/benefits and alternatives of medications, medications compliance, coping strategies, substance abuse h/o, relapse prevention, importance of follow up with psychiatrist and therapist, discharge plan. Medical Problems: pt c/o BL knee pain and "burning and locking" Diagnostic Results: 08/15/18 01:36 08/15/18 01:36 Lab Results 08/15/18 01:36: Valproic Acid < 10 L 08/15/18 01:36: RPR Nonreactive 08/15/18 01:36: TSH 3rd Generation 1.71 08/15/18 01:36: Fasting Glucose 68, Triglycerides 32 L, Cholesterol 122 L, LDL Cholesterol Direct 66, HDL Cholesterol 50 08/15/18 01:36: WBC 6.7, RBC 4.48, Hgb 13.6, Hct 41.1, MCV 91.7, MCH 30.4, MCHC 33.1, RDW 12.9, Plt Count 240, MPV 9.5 08/15/18 01:36: Sodium 138, Potassium 3.9, Chloride 105, Carbon Dioxide 25, Anion Gap 11, BUN 15, Creatinine 0.8, Est GFR ( Amer) > 60, Est GFR (Non- Af Amer) > 60, Random Glucose 67 L, Calcium 9.3, Total Bilirubin 0.4, AST 26, ALT 29, Alkaline Phosphatase 67, Total Protein 7.5, Albumin 4.4, Globulin 3.1, Albumin/Globulin Ratio 1.4 08/15/18 01:36: Urine Color Yellow, Urine Appearance Sl cloudy, Urine pH 6.0, Ur Specific [place] >= 1.030, Urine Protein 100 H, Urine Glucose (UA) Negative, Urine Ketones Negative, Urine Blood Large H, Urine Nitrate Negative, Urine Bilirubin Negative, Urine Urobilinogen 0.2, Ur Leukocyte Esterase Negative, Urine RBC 2 - 5 H, Urine WBC 1 - 3, Ur Epithelial Cells 3 - 4, Amorphous Sediment Few, Urine Bacteria Small 08/15/18 01:36: Alcohol, Quantitative < 10 08/15/18 00:01: Urine Opiates Screen Negative, Urine Methadone Screen Negative, Ur Barbiturates Screen Negative, Ur Phencyclidine Scrn Negative, Ur Amphetamines Screen Negative, U Benzodiazepines Scrn Negative, U Oth Cocaine Metabols Positive H, U Cannabinoids Screen Negative Vital Signs Temp Pulse Resp BP Pulse Ox 08/15/18 07:11 99.3 F 95 H 20 114/71 08/15/18 05:42 97.8 F 95 H 20 114/71 08/15/18 05:10 98.2 F 71 17 110/68 98 08/15/18 02:01 98.2 F 68 18 109/62 96 DSM 5 Symptoms Update: shortly pt is 37yo with reported h/o schizophrenia, h/o cocaine abuse, currently under care of [facility] PACT, h/o noncompliance with medications and follow up appts, pt has multiple psychiatric admissions, pt has tendency of signing herself out of the hospital AMA, pt was d/c from this unit on June 2018, since that time pt was noncompliant with meds and follow up appts since last admission, pt relapsed on drugs, as per ER documentation patient smoked about $100 worth of cocaine, in the emergency room patient presented to be disorganized, paranoid, patient also was verbalizing thoughts of harming herself, reported command type hallucinations, patient requires further evaluation and stabilization and medications adjustment. Patient was seen today in her room, hygiene is very poor, patient presented to be disorganized, paranoid, but with some small improvement, pt's affect was more reactive. there is no wires anywhere, patient also complained that she is hearing voices "bad voices, the same voices" and paranoia that "people are watching me". As per staff patient is seclusive, staying in bed all day long, easily agitated and aggravated, impulses are unpredictable. Patient was visited by PACT team 08/16/18, [facility] is no long have services by PACT, she signed a form discontiuing services bacause she was noncompliant for 12 months and no progress made. injection for Invega trinza and depotprovera were brought in, due date August,. So far patient tolerates medications well, no side effects observed or reported, aims 0, no EPS. Impression: As per history, schizophrenia Stimulants use disorder Substance-induced psychosis Medication Change: Yes (Increased Risperdal to 2 mg bid and 2 mg HS) Medical Record Reviewed: Yes Consults ordered or reviewed: Medical consult was called for bilateral knee pain. Mental Status Examination - Cognitive Function Orientation: Person, Place, Situation Memory: Impaired Attention: Poor Concentration: Poor Association: Loose - Mood Mood: Depressed, Anxious - Affect Affect: Flat - Formal Thought Process Formal Thought Process: Hallucinations ("I hear voices, the same voices, it is scary), Delusions, Paranoia, Loosening of associations, Circumstantial - Suicidal Ideation Suicidal Ideation: No - Homicidal Ideation Homicidal Ideation: No Goal/Treatment Plan - Goal/Treatment Plan Need for Continued Stay: Remain at risks for inpatient hospitalization, Severe depression anxiety, Discharge may exacerbated symptoms, Failed transitioning, Severe functional impairment Progress Toward Problem(s) and Goals/Treatment Plan: Milieu/structure/supportive therapy Medical consult was called SW consultation for discharge plan and social issues Med management Risperdal 1 mg 3 times a day for psychosis PRN meds Invega trinza due for 08/24/18 Family involvement, pt has no family Follow up on labs Will monitor closely Pt was educated about risk/benefits and alternatives of medications, coping strategies (safety plan, suicide prevention), relapse prevention, importance of follow up with psychiatrist and therapist, stay away from drugs/alcohol/smoking Patient was discharged from [facility] PACT team due to lack of progress, noncompliance [facility] brought Invega and depotprovera injections which are due on August 24. Estimated Date of D/C: 08/24/18
[2018-08-21] MEDS: Divalproex 500 mg DR(BID formulation) PO SCH ×2 (10:40→21:37)
--- NOTE | 2018-08-21 11:00 | PN ---
DATE: 08/21/2018 SUBJECTIVE: I saw her resting comfortably in bed on the psychiatric floor. She is alert. She slept well. She is telling me that [birth year] is on 08/24/2018 and she wants to be discharged. I understand Psychiatry wants give her some injections for long-term care treatment, which more probably will help her. Otherwise, she tells me she is feeling a bit better. PHYSICAL EXAMINATION: VITAL SIGNS: She has temperature 99.3, pulse 118, blood pressure 96/63, respiratory rate 20. HEAD: Atraumatic, normocephalic. HEART: Regular rate right now. LUNGS: Decreased breath sounds. Clear to auscultation. ABDOMEN: Soft. EXTREMITIES: No edema. ASSESSMENT AND PLAN: She is here for schizoaffective disorder, visual and auditory hallucinations, also cocaine abuse. I asked her not to do drugs or cocaine anymore as that is not a positive thing in her life. She heard me and will also do it. We will see how the psychiatrist will adjust her medications. Freeman Nash DO
--- NOTE | 2018-08-21 15:17 | PCM.PYCHPN ---
Psychiatric Progress Note - Psychiatric Progress Note Patient seen today, length of contact: 30 minutes Patient Chief Complaint: "when I will be discharged?" Problems Identified/Issues Discussed: Suicide/ homicide prevention, past psychiatric h/o, current psychiatric sympto ms, medical problems, risk/benefits and alternatives of medications, medications compliance, coping strategies, substance abuse h/o, relapse prevention, importance of follow up with psychiatrist and therapist, discharge plan. Medical Problems: pt c/o BL knee pain and "burning and locking" Diagnostic Results: 08/15/18 01:36 08/15/18 01:36 Lab Results 08/15/18 01:36: Valproic Acid < 10 L 08/15/18 01:36: RPR Nonreactive 08/15/18 01:36: TSH 3rd Generation 1.71 08/15/18 01:36: Fasting Glucose 68, Triglycerides 32 L, Cholesterol 122 L, LDL Cholesterol Direct 66, HDL Cholesterol 50 08/15/18 01:36: WBC 6.7, RBC 4.48, Hgb 13.6, Hct 41.1, MCV 91.7, MCH 30.4, MCHC 33.1, RDW 12.9, Plt Count 240, MPV 9.5 08/15/18 01:36: Sodium 138, Potassium 3.9, Chloride 105, Carbon Dioxide 25, Anion Gap 11, BUN 15, Creatinine 0.8, Est GFR ( Amer) > 60, Est GFR (Non- Af Amer) > 60, Random Glucose 67 L, Calcium 9.3, Total Bilirubin 0.4, AST 26, ALT 29, Alkaline Phosphatase 67, Total Protein 7.5, Albumin 4.4, Globulin 3.1, Albumin/Globulin Ratio 1.4 08/15/18 01:36: Urine Color Yellow, Urine Appearance Sl cloudy, Urine pH 6.0, Ur Specific [place] >= 1.030, Urine Protein 100 H, Urine Glucose (UA) Negative, Urine Ketones Negative, Urine Blood Large H, Urine Nitrate Negative, Urine Bilirubin Negative, Urine Urobilinogen 0.2, Ur Leukocyte Esterase Negative, Urine RBC 2 - 5 H, Urine WBC 1 - 3, Ur Epithelial Cells 3 - 4, Amorphous Sediment Few, Urine Bacteria Small 08/15/18 01:36: Alcohol, Quantitative < 10 08/15/18 00:01: Urine Opiates Screen Negative, Urine Methadone Screen Negative, Ur Barbiturates Screen Negative, Ur Phencyclidine Scrn Negative, Ur Amphetamines Screen Negative, U Benzodiazepines Scrn Negative, U Oth Cocaine Metabols Positive H, U Cannabinoids Screen Negative Vital Signs Temp Pulse Resp BP Pulse Ox 08/15/18 07:11 99.3 F 95 H 20 114/71 08/15/18 05:42 97.8 F 95 H 20 114/71 08/15/18 05:10 98.2 F 71 17 110/68 98 08/15/18 02:01 98.2 F 68 18 109/62 96 DSM 5 Symptoms Update: shortly pt is 37yo with reported h/o schizophrenia, h/o cocaine abuse, currently under care of [facility] PACT, h/o noncompliance with medications and follow up appts, pt has multiple psychiatric admissions, pt has tendency of signing herself out of the hospital AMA, pt was d/c from this unit on June 2018, since that time pt was noncompliant with meds and follow up appts since last admission, pt relapsed on drugs, as per ER documentation patient smoked about $100 worth of cocaine, in the emergency room patient presented to be disorganized, paranoid, patient also was verbalizing thoughts of harming herself, reported command type hallucinations, patient requires further evaluation and stabilization and medications adjustment. Patient was seen today next to the nursing station, hygiene is still very poor patient presented to be disorganized, paranoid, but with some small improvement, pt's affect was more reactive, patient said that she needs to be "somewhere, I cannot stay here any longer" patient was educated about treatment plan, patient agreed to have an injectable form of invega. there is no wires anywhere, patient also complained that she is hearing voices "bad voices, the same voices" but less paranoid. As per staff patient is seclusive, staying in bed all day long, easily agitated and aggravated, impulses are unpredictable. Patient was visited by PACT team 08/16/18, Pushpa is no long have services by PACT, she signed a form discontiuing services bacause she was noncompliant for 12 months and no progress made. injection for Invega trinza and depotprovera were brought in, due date August,. So far patient tolerates medications well, no side effects observed or reported, aims 0, no EPS. Impression: As per history, schizophrenia Stimulants use disorder Substance-induced psychosis Medication Change: Yes (Increased Risperdal to 2 mg bid and 2 mg HS) Medical Record Reviewed: Yes Mental Status Examination - Cognitive Function Orientation: Person, Place, Situation Memory: Impaired Attention: Poor Concentration: Poor Association: Loose - Mood Mood: Depressed, Anxious - Affect Affect: Flat - Formal Thought Process Formal Thought Process: Hallucinations ("I hear voices, the same voices, it is scary), Delusions, Paranoia, Loosening of associations, Circumstantial - Suicidal Ideation Suicidal Ideation: No - Homicidal Ideation Homicidal Ideation: No Goal/Treatment Plan - Goal/Treatment Plan Need for Continued Stay: Remain at risks for inpatient hospitalization, Severe depression anxiety, Discharge may exacerbated symptoms, Failed transitioning, Severe functional impairment Progress Toward Problem(s) and Goals/Treatment Plan: Milieu/structure/supportive therapy Medical consult was called SW consultation for discharge plan and social issues Med management Risperdal 1 mg 3 times a day for psychosis PRN meds Invega trinza due for 08/24/18 Family involvement, pt has no family Follow up on labs Will monitor closely Pt was educated about risk/benefits and alternatives of medications, coping strategies (safety plan, suicide prevention), relapse prevention, importance of follow up with psychiatrist and therapist, stay away from drugs/alcohol/smoking Patient was discharged from [facility] PACT team due to lack of progress, noncompliance [facility] brought Invega and depotprovera injections which are due on August 24. Estimated Date of D/C: 08/24/18
[2018-08-22] MEDS: Divalproex 500 mg DR(BID formulation) PO SCH ×2 (10:11→21:35)
--- NOTE | 2018-08-22 12:38 | PN ---
DATE: 08/22/2018 SUBJECTIVE: I saw Pushpa resting comfortably in bed on the psychiatric floor. She slept well. She has been taking her medications. She has no complaints. She is eating. She was here for cocaine abuse, schizoaffective disease, visual and auditory hallucination. She is starting to do better. MEDICATIONS: She is on Ativan, Benadryl, Cogentin, Depakote, Haldol, and Risperdal. PHYSICAL EXAMINATION: VITAL SIGNS: She has temperature 99.3, pulse 118 down to 79 pulse, blood pressure 112/82, respiratory rate 20. HEAD: Atraumatic, normocephalic. HEART: Regular rate. LUNGS: Clear to auscultation. ABDOMEN: Soft. EXTREMITIES: No edema. LABORATORY DATA: Last labs on 08/19/2018 and they were good. ASSESSMENT AND PLAN: Thyroid was good. She was positive for cocaine. I discussed that with her not to do that anymore. She has been seen by Psychiatry, adjusting her medications, continue to take her medications. I continued to encourage her to take her medicines and do well in groups and improve. Freeman Nash DO
--- NOTE | 2018-08-22 14:58 | PCM.PYCHPN ---
Psychiatric Progress Note - Psychiatric Progress Note Patient seen today, length of contact: 30 minutes Patient Chief Complaint: "when I will be discharged?" Problems Identified/Issues Discussed: Suicide/ homicide prevention, past psychiatric h/o, current psychiatric sympto ms, medical problems, risk/benefits and alternatives of medications, medications compliance, coping strategies, substance abuse h/o, relapse prevention, importance of follow up with psychiatrist and therapist, discharge plan. Medical Problems: pt c/o BL knee pain and "burning and locking" Diagnostic Results: 08/15/18 01:36 08/15/18 01:36 Lab Results 08/15/18 01:36: Valproic Acid < 10 L 08/15/18 01:36: RPR Nonreactive 08/15/18 01:36: TSH 3rd Generation 1.71 08/15/18 01:36: Fasting Glucose 68, Triglycerides 32 L, Cholesterol 122 L, LDL Cholesterol Direct 66, HDL Cholesterol 50 08/15/18 01:36: WBC 6.7, RBC 4.48, Hgb 13.6, Hct 41.1, MCV 91.7, MCH 30.4, MCHC 33.1, RDW 12.9, Plt Count 240, MPV 9.5 08/15/18 01:36: Sodium 138, Potassium 3.9, Chloride 105, Carbon Dioxide 25, Anion Gap 11, BUN 15, Creatinine 0.8, Est GFR ( Amer) > 60, Est GFR (Non- Af Amer) > 60, Random Glucose 67 L, Calcium 9.3, Total Bilirubin 0.4, AST 26, ALT 29, Alkaline Phosphatase 67, Total Protein 7.5, Albumin 4.4, Globulin 3.1, Albumin/Globulin Ratio 1.4 08/15/18 01:36: Urine Color Yellow, Urine Appearance Sl cloudy, Urine pH 6.0, Ur Specific [place] >= 1.030, Urine Protein 100 H, Urine Glucose (UA) Negative, Urine Ketones Negative, Urine Blood Large H, Urine Nitrate Negative, Urine Bilirubin Negative, Urine Urobilinogen 0.2, Ur Leukocyte Esterase Negative, Urine RBC 2 - 5 H, Urine WBC 1 - 3, Ur Epithelial Cells 3 - 4, Amorphous Sediment Few, Urine Bacteria Small 08/15/18 01:36: Alcohol, Quantitative < 10 08/15/18 00:01: Urine Opiates Screen Negative, Urine Methadone Screen Negative, Ur Barbiturates Screen Negative, Ur Phencyclidine Scrn Negative, Ur Amphetamines Screen Negative, U Benzodiazepines Scrn Negative, U Oth Cocaine Metabols Positive H, U Cannabinoids Screen Negative Vital Signs Temp Pulse Resp BP Pulse Ox 08/15/18 07:11 99.3 F 95 H 20 114/71 08/15/18 05:42 97.8 F 95 H 20 114/71 08/15/18 05:10 98.2 F 71 17 110/68 98 08/15/18 02:01 98.2 F 68 18 109/62 96 DSM 5 Symptoms Update: shortly pt is 37yo with reported h/o schizophrenia, h/o cocaine abuse, currently under care of [facility] PA[facility], h/o noncompliance with medications and follow up appts, pt has multiple psychiatric admissions, pt has tendency of signing herself out of the hospital AMA, pt was d/c from this unit on June 2018, since that time pt was noncompliant with meds and follow up appts since last admission, pt relapsed on drugs, as per ER documentation patient smoked about $100 worth of cocaine, in the emergency room patient presented to be disorganized, paranoid, patient also was verbalizing thoughts of harming herself, reported command type hallucinations, patient requires further evaluation and stabilization and medications adjustment. Patient was seen today next to the nursing station, hygiene is still very poor patient presented to be disorganized, paranoid, but with some small improvement, pt's affect was more reactive, patient said that she needs to be "somewhere, I cannot stay here any longer" patient was educated about treatment plan, patient agreed to have an injectable form of invega and depot provera. Patient denied hearing any voices or seeing anything unusual. As per staff patient is seclusive, staying in bed all day long, easily agitated and aggravated, impulses are unpredictable, yesterday patient initiated verbal altercation with another patient.. Patient was visited by PACT team 08/16/18, Pushpa is no long have services by PACT, she signed a form discontiuing services bacause she was noncompliant for 12 months and no progress made. injection for Invega trinza and depotprovera were brought in, due date August,. So far patient tolerates medications well, no side effects observed or reported, aims 0, no EPS. Impression: As per history, schizophrenia Stimulants use disorder Substance-induced psychosis Medication Change: Yes (Increased Risperdal to 2 mg bid and 2 mg HS) Medical Record Reviewed: Yes Mental Status Examination - Cognitive Function Orientation: Person, Place, Situation Memory: Impaired Attention: Poor Concentration: Poor Association: Loose - Mood Mood: Depressed, Anxious - Affect Affect: Flat - Formal Thought Process Formal Thought Process: Hallucinations ("I hear voices, the same voices, it is scary), Delusions, Paranoia, Loosening of associations, Circumstantial - Suicidal Ideation Suicidal Ideation: No - Homicidal Ideation Homicidal Ideation: No Goal/Treatment Plan - Goal/Treatment Plan Need for Continued Stay: Remain at risks for inpatient hospitalization, Severe depression anxiety, Discharge may exacerbated symptoms, Failed transitioning, Severe functional impairment Progress Toward Problem(s) and Goals/Treatment Plan: Milieu/structure/supportive therapy Medical consult was called SW consultation for discharge plan and social issues Med management Risperdal 1 mg 3 times a day for psychosis PRN meds Invega trinza due for 08/24/18 Depo-Provera 08/24/2018 Family involvement, pt has no family Follow up on labs Will monitor closely Pt was educated about risk/benefits and alternatives of medications, coping strategies (safety plan, suicide prevention), relapse prevention, importance of follow up with psychiatrist and therapist, stay away from drugs/alcohol/smoking Patient was discharged from [facility] PACT team due to lack of progress, noncompliance [facility] and depotprovera injections which are due on August 24. Estimated Date of D/C: 08/24/18
--- NOTE | 2018-08-23 10:43 | PN ---
DATE: 08/23/2018 SUBJECTIVE: I saw her this morning. She was sleeping; I was not able to truly arouse her completely. She did open her eyes and spoke a word and went back to sleep and I had a good discussion of physical exam with her this morning. No apparent distress. Nurse has said she slept most of the night. PHYSICAL EXAMINATION VITAL SIGNS: She has 99.3 temp, 59 pulse, 112/82 blood pressure. blood pressure is done since the . I am not sure why, I will ask her to do more blood pressures on her. ASSESSMENT AND PLAN: We will continue to follow as per Psychiatry. She has multiple issues. Cocaine abuse, schizoaffective disorder, visual and auditory hallucinations. I hope we can update there vital signs. Freeman Nash DO MTDD
[2018-08-23] MEDS: Divalproex 500 mg DR(BID formulation) PO SCH ×2 (11:18→21:43)
--- NOTE | 2018-08-23 14:58 | PCM.PYCHPN ---
Psychiatric Progress Note - Psychiatric Progress Note Patient seen today, length of contact: 30 minutes Patient Chief Complaint: "I saw a light" Problems Identified/Issues Discussed: Suicide/ homicide prevention, past psychiatric h/o, current psychiatric symptoms, medical problems, risk/benefits and alternatives of medications, medications compliance, coping strategies, substance abuse h/o, relapse prevention, importance of follow up with psychiatrist and therapist, discharge plan. Medical Problems: pt c/o BL knee pain and "burning and locking" Diagnostic Results: 08/15/18 01:36 08/15/18 01:36 Lab Results 08/15/18 01:36: Valproic Acid < 10 L 08/15/18 01:36: RPR Nonreactive 08/15/18 01:36: TSH 3rd Generation 1.71 08/15/18 01:36: Fasting Glucose 68, Triglycerides 32 L, Cholesterol 122 L, LDL Cholesterol Direct 66, HDL Cholesterol 50 08/15/18 01:36: WBC 6.7, RBC 4.48, Hgb 13.6, Hct 41.1, MCV 91.7, MCH 30.4, MCHC 33.1, RDW 12.9, Plt Count 240, MPV 9.5 08/15/18 01:36: Sodium 138, Potassium 3.9, Chloride 105, Carbon Dioxide 25, Anion Gap 11, BUN 15, Creatinine 0.8, Est GFR ( Amer) > 60, Est GFR (Non- Af Amer) > 60, Random Glucose 67 L, Calcium 9.3, Total Bilirubin 0.4, AST 26, ALT 29, Alkaline Phosphatase 67, Total Protein 7.5, Albumin 4.4, Globulin 3.1, Albumin/Globulin Ratio 1.4 08/15/18 01:36: Urine Color Yellow, Urine Appearance Sl cloudy, Urine pH 6.0, Ur Specific [place] >= 1.030, Urine Protein 100 H, Urine Glucose (UA) Negative, Urine Ketones Negative, Urine Blood Large H, Urine Nitrate Negative, Urine Bilirubin Negative, Urine Urobilinogen 0.2, Ur Leukocyte Esterase Negative, Urine RBC 2 - 5 H, Urine WBC 1 - 3, Ur Epithelial Cells 3 - 4, Amorphous Sediment Few, Urine Bacteria Small 08/15/18 01:36: Alcohol, Quantitative < 10 08/15/18 00:01: Urine Opiates Screen Negative, Urine Methadone Screen Negative, Ur Barbiturates Screen Negative, Ur Phencyclidine Scrn Negative, Ur Amphetamines Screen Negative, U Benzodiazepines Scrn Negative, U Oth Cocaine Metabols Positive H, U Cannabinoids Screen Negative Vital Signs Temp Pulse Resp BP Pulse Ox 08/15/18 07:11 99.3 F 95 H 20 114/71 08/15/18 05:42 97.8 F 95 H 20 114/71 08/15/18 05:10 98.2 F 71 17 110/68 98 08/15/18 02:01 98.2 F 68 18 109/62 96 DSM 5 Symptoms Update: shortly pt is 37yo with reported h/o schizophrenia, h/o cocaine abuse, currently under care of [facility] PACT, h/o noncompliance with medications and follow up appts, pt has multiple psychiatric admissions, pt has tendency of signing herself out of the hospital AMA, pt was d/c from this unit on June 2018, since that time pt was noncompliant with meds and follow up appts since last admission, pt relapsed on drugs, as per ER documentation patient smoked about $100 worth of cocaine, in the emergency room patient presented to be disorganized, paranoid, patient also was verbalizing thoughts of harming herself, reported command type hallucinations, patient requires further evaluation and stabilization and medications adjustment. Patient was seen today at the dinning area, hygiene is still very poor patient p resented to be disorganized, yesterday pt had visual hallucinations and pt was paranoid, pt said that she saw "light, but it was in the bathroom, it was automatic switch, I thought that I had hallucinations..." small improvement, pt's affect was more reactive 08/24/18 injectable form of invega and depot provera will be given. As per staff patient is seclusive, staying in bed all day long, easily agitated and aggravated, impulses are unpredictable. Patient was visited by PACT team 08/16/18, Pushpa is no long have services by PACT, she signed a form discontiuing services bacause she was noncompliant for 12 months and no progress made. injection for Invega trinza and depotprovera were brought in, due date August,. So far patient tolerates medications well, no side effects observed or reported, aims 0, no EPS. Impression: As per history, schizophrenia Stimulants use disorder Substance-induced psychosis Medication Change: Yes (Increased Risperdal to 2 mg bid and 2 mg HS) Medical Record Reviewed: Yes Mental Status Examination - Cognitive Function Orientation: Person, Place, Situation Memory: Impaired Attention: Poor Concentration: Poor Association: Loose - Mood Mood: Depressed ("I am not depressed"), Anxious - Affect Affect: Flat - Formal Thought Process Formal Thought Process: Hallucinations ("I saw something"), Delusions, Paranoia ("I was scared"), Loosening of associations, Circumstantial - Suicidal Ideation Suicidal Ideation: No - Homicidal Ideation Homicidal Ideation: No Goal/Treatment Plan - Goal/Treatment Plan Need for Continued Stay: Remain at risks for inpatient hospitalization, Severe depression anxiety, Discharge may exacerbated symptoms, Failed transitioning, Severe functional impairment Progress Toward Problem(s) and Goals/Treatment Plan: Milieu/structure/supportive therapy Medical consult was called SW consultation for discharge plan and social issues Med management Risperdal 2 mg 3 times a day for psychosis PRN meds Invega trinza due for 08/24/18 Depo-Provera 08/24/2018 Family involvement, pt has no family Follow up on labs Will monitor closely Pt was educated about risk/benefits and alternatives of medications, coping strategies (safety plan, suicide prevention), relapse prevention, importance of follow up with psychiatrist and therapist, stay away from drugs/alcohol/smoking Patient was discharged from [facility] PACT team due to lack of progress, noncompliance [facility] brought Invega and depotprovera injections which are due on August 24. Estimated Date of D/C: 08/24/18
[2018-08-24] MEDS ORDERED: INVEGA TRINZA 819 MG IM ONE (09:00)
[2018-08-24] MEDS ORDERED: MEDROXYPROGESTERONE 150 MG/ML IM ONE (09:00)
[2018-08-24] MEDS: Divalproex 500 mg DR(BID formulation) PO SCH (09:10)
--- NOTE | 2018-08-24 14:43 | PN ---
DATE: 08/24/2018 SUBJECTIVE: I saw her resting comfortably in bed in the psychiatric floor. She is eating well. She is looking forward for breakfast. She is taking the medications. She tells me, she is little bit better. MEDICATIONS: Ativan, Benadryl, Cogentin, Depakote, Haldol, and Risperdal. PHYSICAL EXAMINATION VITAL SIGNS: She has a 99.3 temperature, 118 pulse, 96/63 blood pressure No vital signs back in the chart, no computer. I discussed this with her yesterday, they have not updated it. HEENT: Head is atraumatic and normocephalic. HEART: Regular rate. LUNGS: Clear to auscultation. ABDOMEN: Soft. EXTREMITIES: No edema. Continue aggressive treatment and care as per Psychiatry. She is here for cocaine abuse, schizoaffective disease, visual and auditory hallucinations and is going to improve. Freeman Nash DO MTDD
--- NOTE | 2018-08-24 16:18 | PCM.PYCHDC ---
Mental Status Examination - Mental Status Examination Orientation: Person, Place, Situation, Time Memory: Impaired (Baseline) Mood: Neutral Affect: Constricted (But more reactive, mood congruent) Speech: Appropriate (At times disorganized but that seems her baseline) Attention: Poor (Baseline) Concentration: Poor (Baseline) Association: Loose (Baseline but with much improvement) Fund of Knowledge: Poor (Baseline) Formal Thought Process: Paranoia (Chronic paranoia), Other (Disorganized though ts and disorganized behavior, but no agitation or aggression) Description of patient's judgement and insight: Pt has improved insight into mental and medical illness, pt was compliant with medications and unit rules and regulations, pt was going to groups, was calm, cooperative, socially appropriate, no behavioral incidents, no agitation, no aggression. Psychotic Thoughts and Behaviors: Patient appears to be less paranoid, patient has residual psychotic symptoms, at the same time patient has some improvements with the presentation, no aggression, no agitation, impulses are better controlled. Suicidal Ideation: No Current Homicidal Ideation?: No Plan: pt adamantly denied thoughts of harming self or others denied intent or plan. Discharge Summary - Discharge Note Reason for Hospitalization: Patient was admitted to the psychiatric inpatient unit for evaluation and stabilization of psychotic symptoms, inability to function, paranoia, see emergency room note for more detailed information Psychiatric History (includes Medical, Family, Personal Hx): As per HPI Laboratory Data: 08/19/18 10:00 08/19/18 10:00 Lab Results 08/19/18 10:00: Sodium 141, Potassium 4.1, Chloride 106, Carbon Dioxide 28, Anion Gap 11, BUN 15, Creatinine 0.9, Est GFR ( Amer) > 60, Est GFR (Non- Af Amer) > 60, Random Glucose 101, Calcium 9.6, Total Bilirubin 0.4, AST 17, ALT 26, Alkaline Phosphatase 77, Total Protein 7.1, Albumin 4.0, Globulin 3.1, Albumin/Globulin Ratio 1.3 08/19/18 10:00: WBC 5.9, RBC 4.49, Hgb 13.5, Hct 41.1, MCV 91.5, MCH 30.1, MCHC 32.8, RDW 12.7, Plt Count 210, MPV 9.5 08/15/18 01:36: Valproic Acid < 10 L 08/15/18 01:36: RPR Nonreactive 08/15/18 01:36: TSH 3rd Generation 1.71 08/15/18 01:36: Fasting Glucose 68, Triglycerides 32 L, Cholesterol 122 L, LDL Cholesterol Direct 66, HDL Cholesterol 50 08/15/18 01:36: WBC 6.7, RBC 4.48, Hgb 13.6, Hct 41.1, MCV 91.7, MCH 30.4, MCHC 33.1, RDW 12.9, Plt Count 240, MPV 9.5 08/15/18 01:36: Sodium 138, Potassium 3.9, Chloride 105, Carbon Dioxide 25, Anion Gap 11, BUN 15, Creatinine 0.8, Est GFR ( Amer) > 60, Est GFR (Non- Af Amer) > 60, Random Glucose 67 L, Calcium 9.3, Total Bilirubin 0.4, AST 26, ALT 29, Alkaline Phosphatase 67, Total Protein 7.5, Albumin 4.4, Globulin 3.1, Albumin/Globulin Ratio 1.4 08/15/18 01:36: Urine Color Yellow, Urine Appearance Sl cloudy, Urine pH 6.0, Ur Specific [place] >= 1.030, Urine Protein 100 H, Urine Glucose (UA) Negative, Urine Ketones Negative, Urine Blood Large H, Urine Nitrate Negative, Urine Bilirubin Negative, Urine Urobilinogen 0.2, Ur Leukocyte Esterase Negative, Urine RBC 2 - 5 H, Urine WBC 1 - 3, Ur Epithelial Cells 3 - 4, Amorphous Sediment Few, Urine Bacteria Small 08/15/18 01:36: Alcohol, Quantitative < 10 08/15/18 00:01: Urine Opiates Screen Negative, Urine Methadone Screen Negative, Ur Barbiturates Screen Negative, Ur Phencyclidine Scrn Negative, Ur Amphetamines Screen Negative, U Benzodiazepines Scrn Negative, U Oth Cocaine Metabols Positive H, U Cannabinoids Screen Negative Vital Signs Temp Pulse Resp BP Pulse Ox 08/17/18 16:00 118 H 96/63 L 08/16/18 16:00 79 112/82 08/15/18 07:11 99.3 F 95 H 20 114/71 08/15/18 05:42 97.8 F 95 H 20 114/71 08/15/18 05:10 98.2 F 71 17 110/68 98 08/15/18 02:01 98.2 F 68 18 109/62 96 Consultations:: List each consultation separately and include: 1. Reason for request. 2. Findings. 3. Follow-up Consultations: Medical consult was called for bilateral knee pain. Please see notes for more detailed information Summary of Hospital Course include:: 1. Description of specific treatment plan utilized for patients during their course of treatmen. 2. Summarize the time- course for resolution of acute symptoms and/or regressed behaviors. 3. Describe issues identified and worked on during hospitalization. 4. Describe medication utilized. 5. Describe medical problems identified and treated. 6. Reassessment of suicide risk Summary of Hospital Course: shortly pt is 37yo with reported h/o schizophrenia, h/o cocaine abuse, currently under care of [facility], h/o noncompliance with medications and follow up appts, pt has multiple psychiatric admissions, pt has tendency of signing herself out of the hospital AMA, pt was d/c from this unit on June 2018, si nce that time pt was noncompliant with meds and follow up appts since last admission, pt relapsed on drugs, as per ER documentation patient smoked about $100 worth of cocaine, in the emergency room patient presented to be disorganized, paranoid, patient also was verbalizing thoughts of harming herse lf, reported command type hallucinations, patient required further evaluation and stabilization and medications adjustment. [facility] Sun LUQUE, was contacted, as per report pt noncompliant with meds, was aggressive in community, failed outpatient setting. as per Sun pt is due for Invega trinza and depoprovera 08/24/18. which pt got 08/24/18. [facility] because of lack of progress and noncompliance 08/15/18 01:36 08/15/18 01:36 Lab Results 08/15/18 01:36: Valproic Acid < 10 L 08/15/18 01:36: TSH 3rd Generation 1.71 08/15/18 01:36: Fasting Glucose 68, Triglycerides 32 L, Cholesterol 122 L, LDL Cholesterol Direct 66, HDL Cholesterol 50 08/15/18 01:36: WBC 6.7, RBC 4.48, Hgb 13.6, Hct 41.1, MCV 91.7, MCH 30.4, MCHC 33.1, RDW 12.9, Plt Count 240, MPV 9.5 08/15/18 01:36: Sodium 138, Potassium 3.9, Chloride 105, Carbon Dioxide 25, An ion Gap 11, BUN 15, Creatinine 0.8, Est GFR ( Amer) > 60, Est GFR (Non-Af Amer) > 60, Random Glucose 67 L, Calcium 9.3, Total Bilirubin 0.4, AST 26, ALT 29, Alkaline Phosphatase 67, Total Protein 7.5, Albumin 4.4, Globulin 3.1, Albumin/Globulin Ratio 1.4 08/15/18 01:36: Urine Color Yellow, Urine Appearance Sl cloudy, Urine pH 6.0, Ur Specific [place] >= 1.030, Urine Protein 100 H, Urine Glucose (UA) Negative, Urine Ketones Negative, Urine Blood Large H, Urine Nitrate Negative, Urine Bilir ubin Negative, Urine Urobilinogen 0.2, Ur Leukocyte Esterase Negative, Urine RBC 2 - 5 H, Urine WBC 1 - 3, Ur Epithelial Cells 3 - 4, Amorphous Sediment Few, Urine Bacteria Small 08/15/18 01:36: Alcohol, Quantitative < 10 08/15/18 00:01: Urine Opiates Screen Negative, Urine Methadone Screen Negative, Ur Barbiturates Screen Negative, Ur Phencyclidine Scrn Negative, Ur Amphetamines Screen Negative, U Benzodiazepines Scrn Negative, U Oth Cocaine Metabols Positive H, U Cannabinoids Screen Negative Vital Signs Temp Pulse Resp BP Pulse Ox 08/15/18 07:11 99.3 F 95 H 20 114/71 08/15/18 05:42 97.8 F 95 H 20 114/71 08/15/18 05:10 98.2 F 71 17 110/68 98 08/15/18 02:01 98.2 F 68 18 109/62 96 Patient was stabilized on the following medications: Before injection of Invega Trinza pt was on risperdal 2 mg 3 times daily for psychosis Invega trinza was given today August 24, 2018, this injection every 3 months Depo Provera IM was given today August 24, 2018, this injection every 3 months contraceptive Depakote 500 mg twice a day for mood stabilization Cogentin 1 mg at the nighttime for possible EPS Patient tolerated medications well, no side effects observed or reported, aims 0, no EPS. Over the course of this hospitalization pt was not interested to participate in unit activities, at the same time patient showed some improvement with her presentation such as impulses are better controlled, no agitation, no aggression, patient had fair appetite and sleep. Patient reached maximum effect from this hospitalization, deemed ready for discharge. at the time of discharge patient pose no imminent danger to self or others, will be following up at dual diagnosis program, as well as ICMS services, information about follow up appointment, time and address provided to the pt, (see SW note for more detailed information). It is a patient responsibility to follow up with outpatient clinic, PMD as well as specialists In case patient will need to obtain results of studies pending at discharge, patient was provided with contact information of Psychiatric Inpatient unit [phone] as well as Medical Record Department [phone], as well as [facility] team [phone]. Nicotine patch was offered but patient refused Naltrexone treatment is not indicated at this time Counseling about drugs cessation provided AA meetings as well as [facility] smoking cessation treatment program information was provided by the pt was provided with prescriptions for two weeks and one refill for psychotropic meds and one week for medical meds (see medication reconciliation form) Pt was educated about safety plan in case of worsening of symptoms or in case of suicidal or homicidal ideation call 911 or go to the nearest ER, also was educated to take meds as prescribed and stay away from drugs, pt verbalized understanding. - Diagnosis (1) Schizophrenia Current Visit: Yes Status: Chronic Priority: High (2) Cocaine abuse Current Visit: No Status: Chronic Priority: High - Final Diagnosis (DSM 5) Condition upon Discharge: STABLE Disposition: HOME/ ROUTINE Follow-up Treatment Plan: at the time of discharge patient pose no imminent danger to self or others, will be following up at dual diagnosis program, as well as ICMS services, information about follow up appointment, time and address provided to the pt, (see SW note for more detailed information). It is a patient responsibility to follow up with outpatient clinic, PMD as well as specialists In case patient will need to obtain results of studies pending at discharge, patient was provided with contact information of Psychiatric Inpatient unit [phone] as well as Medical Record Department [phone], as well as [facility] team [phone]. Nicotine patch was offered but patient refused Naltrexone treatment is not indicated at this time Counseling about drugs cessation provided AA meetings as well as [facility] smoking cessation treatment program information was provided by the [facility] pt was provided with prescriptions for two weeks and one refill for psychotropic meds and one week for medical meds (see medication reconciliation form) Pt was educated about safety plan in case of worsening of symptoms or in case of suicidal or homicidal ideation call 911 or go to the nearest ER, also was educated to take meds as prescribed and stay away from drugs, pt verbalized understanding. Patient was discharged from [facility] team due to lack of progress, noncompliance [facility] brought Invega and depotprovera injections which given August 24, 2018. Prescriptions/Medication Reconciliation: Benztropine [Cogentin] 1 mg PO HS #14 tab Divalproex [Depakote DR(*BID*)] 500 mg PO AMHS #30 tcp Medroxyprogesterone Acetate 150 mg IM Q90D #1 syringe Paliperidone Palmitate [Invega Trinza] 819 mg IM Q90D #1 syringe - Smoking Cessation Smoking Cessation Medication prescribed: No Reason for not providing: Patient refused - Antipsychotic Medications Pt discharged on 2 or more routine antipsychotic medications: No
== END 2018-08-24 15:53 | disposition home or self-care (01) | DRG 885 ==
LOC: ED 01:01 → ERH 04:35 → PSYC 05:12
PROVIDERS: ADMIT Psychiatry & Neurology Psychiatry; ATTEND Psychiatry & Neurology Psychiatry
DX: F25.9 Schizoaffective disorder, unspecified (principal); F14.259 Cocaine dependence with cocaine-induced psychotic disorder, unspecified; E03.9 Hypothyroidism, unspecified; F17.210 Nicotine dependence, cigarettes, uncomplicated; J45.909 Unspecified asthma, uncomplicated; Z91.14 Patient's other noncompliance with medication regimen